=== PATIENT | female | born 1955 | race Caucasian/White ===

== ENCOUNTER 2024-06-02 12:23 | Emergency (ER) | payer MEDICARE, OTHER, SELFPAY ==
[2024-06-02] VITALS (7 sets, daily range): BP systolic 159–222; BP diastolic 53–81; PULSE 68–92; RESP 14–18; TEMP 36.2–36.7; O2SAT 98–99
--- NOTE | ~2024-06-02 | CT_ITS ---
EXAMINATION: CT abdomen pelvis wo con DATE: 06/02/2024 13:51 INDICATION: Left flank pain radiating to the left lower quadrant. TECHNIQUE: Computed tomography (CT) of the abdomen and pelvis was performed without intravenous contr ast. Automated exposure control and iterative reconstruction technique were employed. The dose-length product was 1553.99 mGy-cm. COMPARISON: None FINDINGS: Minimal dependent atelectasis in the bilateral lower lobes. Heart size normal. No pericardial or pleu ral effusion. Multiple small hepatic and splenic calcifications consistent with old granulomatous dis ease. Large rim calcified gallstone within the otherwise normal-appearing gallbladder. No intra or ex trahepatic ductal or ductal dilation. No gallbladder wall thickening or pericholecystic inflammatory change to suggest acute cholecystitis. Pancreas and bilateral adrenal glands are normal. Bilateral ne phrolithiasis. 4 mm at least partially obstructing distal left ureteral stone positioned [address] level of the ureterovesicular junction with mild left hydroureteronephrosis. Additional 2 mm nonob structing stone at a upper pole calyx of left kidney. Right kidney and ureter are normal with no urol ithiasis or hydronephrosis. Bladder is normal. The uterus is not identified and has likely been surgi jeri resected. There are few diverticula along the sigmoid colon without adjacent inflammatory stran ding to suggest diverticulitis. No free intraperitoneal gas or fluid. No pathologically enlarged abdo aileen or pelvic lymphadenopathy. Mild lumbar and moderate lower thoracic spondylosis. IMPRESSION: 1. Left nephrolithiasis with at least partially obstructing 4 mm distal left ureteral stone with mild left hydroureteronephrosis. 2. Cholelithiasis. Reviewed, dictated and finalized at location A. IMPRESSION: 1. Left nephrolithiasis with at least partially obstructing 4 mm distal left ur eteral stone with mild left hydroureteronephrosis. 2. Cholelithiasis.
--- NOTE | 2024-06-02 13:40 | ED.GENADULT ---
HPI - General Adult General Chief complaint: Unspecified Stated complaint: left flank pain Time Seen by Provider: 06/02/24 13:07 History of Present Illness HPI narrative: 69-year-old female with a history of hypertension, hyperlipidemia, CAD presenting with flank pain. States that for the last several weeks she has had intermittent left flank pain that radiates into her left lower quadrant. Associated with nausea. Denies dysuria or hematuria but states that her urine has had brown flecks in it. No fevers. No further complaints. Currently is pain free. Related Data Home Medications Medication Instructions Recorded Confirmed aspirin 81 mg tablet,delayed 81 mg PO DAILY 08/27/22 08/27/22 release calcium carbonate 500 mg PO DAILY 08/27/22 08/27/22 cetirizine 10 mg tablet 10 mg PO DAILY 08/27/22 08/27/22 cholecalciferol (vitamin D3) 125 125 mcg PO DAILY 08/27/22 08/27/22 mcg (5,000 unit) tablet fluticasone propionate 50 1 spray intranasal DAILY 08/27/22 08/27/22 mcg/actuation nasal spray,suspension furosemide 40 mg tablet 40 mg PO DAILY PRN Edema 08/27/22 08/27/22 multivitamin with minerals-folic 1 tablet PO DAILY 08/27/22 08/27/22 acid 0.4 mg tablet pantoprazole 40 mg tablet,delayed 40 mg PO DAILY 08/27/22 08/27/22 release simvastatin 40 mg tablet 40 mg PO DAILY 08/27/22 08/27/22 telmisartan 40 mg tablet 40 mg PO DAILY 08/27/22 08/27/22 venlafaxine 75 mg capsule,extended 75 mg PO DAILY 08/27/22 08/27/22 release 24 hr Allergies Allergy/AdvReac Type Severity Reaction Status Date / Time Sulfa (Sulfonamide Allergy Mild Palpitation Verified 06/02/24 12:26 Antibiotics) s Review of Systems Review of Systems: All systems reviewed & are unremarkable except as noted in HPI and below PMFSH Social History Social History Smoking status: Never smoker Additional smoking assessment comments: LIVED WITH SMOKING FOR 29 YEARS, 2017 Alcohol intake: never Substance use: never Substance use type: does not use Living arrangements: alone Spiritual care concerns: No Exam Narrative: GENERAL: Well-appearing, in no acute distress, very pleasant and cooperative HEAD: Normocephalic, atraumatic. EYES: PERRLA and EOMI. ENT: Mucous membranes moist. NECK: Supple. CHEST: No respiratory distress. HEART: Regular rate and rhythm ABDOMEN: Soft, nontender, nondistended; no CVA tenderness EXTREMITIES: Normal range of motion. SKIN: Warm, dry, no rash. NEURO: No focal deficits. Alert and oriented x3. PSYCH: Normal mood and affect. Course Vital Signs Vital signs: Vital Signs Temperature 97.2 F L 06/02/24 12:46 Pulse Rate 68 06/02/24 12:46 Respiratory Rate 16 06/02/24 12:46 Blood Pressure 222/81 H 06/02/24 12:46 Pulse Oximetry 98 06/02/24 12:46 Temperature 98.1 F 06/02/24 17:50 Pulse Rate 77 06/02/24 17:50 Respiratory Rate 17 06/02/24 17:50 Blood Pressure 159/53 H 06/02/24 17:17 Pulse Oximetry 99 06/02/24 17:50 Medical Decision Making MDM Narrative Medical decision making narrative: 69-year-old female presenting with left flank pain. Patient is hypertensive, otherwise vitals are within normal limits. Exam remarkable for the above. Blood work is unremarkable. Normal renal function. UA is not infected. CT abdomen pelvis shows a left-sided ureteral stone. Patient is safe for outpatient management. She has not had any recurrence of her symptoms today. She feels comfortable going home. Advised close follow-up with Urology. Appropriate return precautions given. Discharged in stable condition. Differential Diagnosis Differential Diagnosis: UTI, pyelonephritis, ureterolithiasis, flank pain Medical Records Medical records reviewed: Yes I reviewed the external patient's medical records. Vital Signs Vital Signs: Vital Signs Temperature 97.2 F L 06/02/24 12:46 Pulse Rate
[2024-06-02 14:06] LABS: Basophils Absolute Auto 0.1 K/mm3 (0.0-0.1); Basophils Percent Auto 0.6 % (0.2-1.2); Eosinophils Absolute Auto 0.3 K/mm3 (0-0.3); Eosinophils Percent Auto 3.1 % (0-4.4); Hematocrit 38.8 % (37.0-47.0); Hemoglobin 12.7 g/dL (12.0-15.0); Immature Granulocyte Absolute 0.04 K/mm3 (0.00-0.031); Immature Granulocyte Percent A 0.5 % (0-0.5); Lymphocytes Absolute Auto 1.61 K/mm3 (0.9-3.2); Lymphocytes Percent Auto 18.6 % (18.3-44.2); Mean Corpuscular HGB Conc 32.7 g/dl (32-36); Mean Corpuscular Hemoglobin 29.8 pg (26-34); Mean Corpuscular Volume 91.1 fl (80-100); Mean Platelet Volume 11.1 fl (7.4-10.4); Monocytes Absolute Auto 0.7 K/mm3 (0.1-0.6); Monocytes Percent Auto 7.6 % (2.6-8.5); Neutrophils Percent Auto 69.6 % (45.5-73.1); Platelet Count Result 185 k/mm3 (150-375); Red Blood Count 4.26 M/mm3 (4.2-5.4); Red Cell Distribution Width 13.1 % (11.5-14.5); White Blood Count 8.7 K/mm3 (4.5-10.0)
[2024-06-02 14:17] LABS: Alanine Aminotransferase 23 U/L (6-35); Albumin Level 3.9 g/dL (3.5-5.1); Alkaline Phosphatase 71 U/L (38-126); Anion Gap 8 mmol/L (4-12); Aspartate Amino Transferase 24 U/L (14-36); Bilirubin,Total 0.2 mg/dL (0.2-1.3); Blood Urea Nitrogen 16 mg/dL (7-17); Calcium 8.9 mg/dL (8.4-10.2); Carbon Dioxide 28 mmol/L (22-30); Chloride 103 mmol/L (98-107); Estimated CRCL calculation 86 ml/min; Estimated Glomerular Filt Rate > 60; Glucose 106 mg/dL (65-110); Lipase 96 U/L (23-300); Potassium 3.5 mmol/L (3.4-5.0); Sodium 139 mmol/L (137-145)
--- NOTE | 2024-06-02 15:34 | PC.NURSE ---
pt was provided oral hydration because they are unable to urinate to provide UA. pt was educated to use call light with any urge to provide urine sample.
[2024-06-02 17:08] LABS: Add Urine Microscopic? YES; Appearance Urine Clear (Clear); Bacteria Urine None Seen /hpf; Bilirubin Urine Negative (Negative); Blood Urine 2+ (Negative); Color Urine Yellow (Yellow); Glucose Urine UA Negative (Negative); Ketones Urine Negative (Negative); Leukocyte Esterase Ur Negative LEU/UL (Negative); Nitrate Urine Negative (Negative); Non Pathogenic Casts 0-2; Protein Urine Negative (Negative); RBC Urine 0-2 /hpf (0-2); Squamous Epithelial Cell Urine None Seen /hpf (Few); Urobilinogen Urine 0.2 mg/dL (<2.0); WBC Urine 0-5 /hpf (0-3)
== END 2024-06-02 17:55 | disposition home or self-care (01) ==
PROVIDERS: Emergency Provider Emergency Medicine
DX: N13.2 Hydronephrosis with renal and ureteral calculous obstruction (principal); I10 Essential (primary) hypertension; I25.10 Atherosclerotic heart disease of native coronary artery without angina pectoris; E78.5 Hyperlipidemia, unspecified; Z79.899 Other long term (current) drug therapy; Z79.82 Long term (current) use of aspirin; Z77.22 Contact with and (suspected) exposure to environmental tobacco smoke (acute) (chronic); K80.20 Calculus of gallbladder without cholecystitis without obstruction
CPT/HCPCS: 36415; 74176; 80053; 81001; 83690; 85025; 99284

== ENCOUNTER 2024-08-03 01:28 | Day surgery (SDC) | payer MEDICARE, OTHER, SELFPAY ==
[2024-07-29 09:01] VITALS: BMI 44.9
--- NOTE | 2024-07-29 13:00 | PC.NURSE ---
Did patient's PAT call. Told her she was scheduled for an EGD & Colonoscopy. She stated that she didn't know anything about the EGD and she only wanted to have the colonoscopy done.
[2024-08-03 10:38] VITALS: BP 169/81; PULSE 71; RESP 20; TEMP 36.2; O2SAT 98
[2024-08-03] MEDS: LACTATED RINGERS 1,000 ML 150 ML IV CONT (10:52)
--- NOTE | 2024-08-03 10:58 | P.PNAN_ITS ---
Anes - Initial Pre Proc Eval Procedure: Operation Date: 08/03/24 11:30 Proposed Procedures p Screening Colonoscopy - Dewayne Acuna MD Date/Time: 08/03/24 10:58 Surgeon: Dewayne Acuna MD Pre Op Diagnosis: Pesonal hx. of colon polyps, GERD Patient Data Age: 69 Gender: F Height: 1.65 m Weight: 120.9 kg Last Vital Signs Temp 36.2 C L 08/03/24 10:38 Pulse 71 08/03/24 10:38 Resp 20 08/03/24 10:38 BP 169/81 H 08/03/24 10:38 Pulse Ox 98 08/03/24 10:38 O2 Del Method Room Air 08/03/24 10:38 Allergies Allergy/AdvReac Type Severity Reaction Status Date / Time Sulfa (Sulfonamide Allergy Mild Palpitation Verified 08/03/24 10:36 Antibiotics) s Home Medications ?Medication ?Instructions ?Recorded ?Confirmed ?Type aspirin 81 mg tablet,delayed 81 mg PO DAILY 08/27/22 08/03/24 History release calcium carbonate 500 mg PO DAILY 08/27/22 08/03/24 History cetirizine 10 mg tablet 10 mg PO DAILY 08/27/22 08/03/24 History cholecalciferol (vitamin D3) 125 125 mcg PO DAILY 08/27/22 08/03/24 History mcg (5,000 unit) tablet fluticasone propionate 50 1 spray intranasal DAILY 08/27/22 08/03/24 History mcg/actuation nasal spray,suspension furosemide 40 mg tablet 40 mg PO DAILY PRN Edema 08/27/22 08/03/24 History multivitamin with minerals-folic 1 tablet PO DAILY 08/27/22 08/03/24 History acid 0.4 mg tablet pantoprazole 40 mg tablet,delayed 40 mg PO DAILY 08/27/22 08/03/24 History release simvastatin 40 mg tablet 40 mg PO DAILY 08/27/22 08/03/24 History telmisartan 40 mg tablet 40 mg PO DAILY 08/27/22 08/03/24 History venlafaxine 75 mg capsule,extended 75 mg PO DAILY 08/27/22 08/03/24 History release 24 hr hydrocodone 5 mg-acetaminophen 325 1 tablet PO Q8H PRN pain #7 tabs 06/02/24 07/29/24 Rx mg tablet ondansetron 4 mg disintegrating 4 mg PO Q8H PRN nausea and 06/02/24 07/29/24 Rx tablet vomiting #14 tabs meloxicam 15 mg tablet 15 mg PO DAILY 07/29/24 08/03/24 History Patient hx anesthesia problems: none Family hx anesthesia problems: none Results Review: All pre-operative results and documents have been reviewed as part of the pre- operative evaluation. [facility] Social History Social History Smoking status: Never smoker Additional smoking assessment comments: LIVED WITH SMOKING FOR 29 YEARS, 2017 Alcohol intake: never Substance use: never Substance use type: does not use Living arrangements: alone Spiritual care concerns: No Anes - Eval Final PreProcedure Day of Procedure 08/03/24 10:58 Patient weight: morbidly obese Heart: regular rate and rhythm Lungs: decreased breath sounds Airway: Mallampati scale class II Neurological: alert and oriented Last oral intake: >/= 8 hours ASA classification: III Emergent: no Anesthetic plan: proceed Anesthesia type and monitoring: general GIVS and standard monitoring Results Review: All pre-operative results and documents have been reviewed as part of the pre- operative evaluation. Informed Consent: The patient's anesthetic plan and its attendant risks and benefits were discussed with the patient/family/POA. Questions were solicited and answers provided to the satisfaction of the patient/family/POA.
--- NOTE | 2024-08-03 11:00 | PM.HPGS ---
History of Present Illness History of Present Illness Consent: Risks, benefits, and alternatives have been discussed and questions answered. Patient agrees to proceed with procedure. Chief complaint: Pesonal hx. of colon polyps, GERD Narrative: Krystin Yanez is a 69 year old female with colon polyp 7 years ago Review of Systems Review of Systems: All systems reviewed & are unremarkable except as noted in HPI and below PMFSH Past Medical History Medical History (Updated 08/03/24 @ 11:01 by Dewayne Acuna MD) Colon polyp Social History Social History Smoking status: Never smoker Additional smoking assessment comments: LIVED WITH SMOKING FOR 29 YEARS, 2018 Alcohol intake: never Substance use: never Substance use type: does not use Living arrangements: alone Spiritual care concerns: No Meds Home Medications and Allergies Home Medications ?Medication ?Instructions ?Recorded ?Confirmed ?Type aspirin 81 mg tablet,delayed 81 mg PO DAILY 08/27/22 08/03/24 History release calcium carbonate 500 mg PO DAILY 08/27/22 08/03/24 History cetirizine 10 mg tablet 10 mg PO DAILY 08/27/22 08/03/24 History cholecalciferol (vitamin D3) 125 125 mcg PO DAILY 08/27/22 08/03/24 History mcg (5,000 unit) tablet fluticasone propionate 50 1 spray intranasal DAILY 08/27/22 08/03/24 History mcg/actuation nasal spray,suspension furosemide 40 mg tablet 40 mg PO DAILY PRN Edema 08/27/22 08/03/24 History multivitamin with minerals-folic 1 tablet PO DAILY 08/27/22 08/03/24 History acid 0.4 mg tablet pantoprazole 40 mg tablet,delayed 40 mg PO DAILY 08/27/22 08/03/24 History release simvastatin 40 mg tablet 40 mg PO DAILY 08/27/22 08/03/24 History telmisartan 40 mg tablet 40 mg PO DAILY 08/27/22 08/03/24 History venlafaxine 75 mg capsule,extended 75 mg PO DAILY 08/27/22 08/03/24 History release 24 hr hydrocodone 5 mg-acetaminophen 325 1 tablet PO Q8H PRN pain #7 tabs 06/02/24 07/29/24 Rx mg tablet ondansetron 4 mg disintegrating 4 mg PO Q8H PRN nausea and 06/02/24 07/29/24 Rx tablet vomiting #14 tabs meloxicam 15 mg tablet 15 mg PO DAILY 07/29/24 08/03/24 History Allergies Allergy/AdvReac Type Severity Reaction Status Date / Time Sulfa (Sulfonamide Allergy Mild Palpitation Verified 08/03/24 10:36 Antibiotics) s Vital Signs Vital Signs - 24 hr 08/03/24 10:38 Temperature 97.1 F L Pulse Rate 71 Respiratory Rate 20 Blood Pressure 169/81 H Pulse Oximetry 98 Oxygen Delivery Room Air Exam Const: General: comfortable and no acute distress HENMT: Face/Nose/Sinus: Normal nares present Eyes: General: appearance normal, both eyes and all related structures Neck: Neck: no JVD Resp: Auscultation: clear to auscultation bilaterally Cardio: Rate: regular rate Rhythm: regular rhythm GI: Inspection: non-distended GI Palp: Yes Soft to palpation Skin: General skin exam: normal color Neuro: General: gait normal Speech: normal speech Extrem: General: normal to inspection Psych: Mental Status: mental status grossly normal Assessment and Plan Assessment and plan (1) Colon polyp: Code(s): K63.5 - Polyp of colon Status: Acute Assessment and Plan: colonoscopy
[2024-08-03 11:26] VITALS: BP 154/81; PULSE 68; RESP 29; O2SAT 95
[2024-08-03 11:36] VITALS: BP 156/95; PULSE 71; RESP 20; O2SAT 98
[2024-08-03 11:46] VITALS: BP 154/71; PULSE 65; RESP 19; O2SAT 99
== END 2024-08-03 11:55 | disposition home or self-care (01) ==
PROVIDERS: Visit Provider Internal Medicine Gastroenterology
PROC: 0DJD8ZZ Inspection of Lower Intestinal Tract, Via Natural or Artificial Opening Endoscopic (ICD-10-PCS; CPT 45378; principal; 2024-08-03 11:30)
DX: Z12.11 Encounter for screening for malignant neoplasm of colon (principal); D12.3 Benign neoplasm of transverse colon; K64.8 Other hemorrhoids; K21.9 Gastro-esophageal reflux disease without esophagitis; E66.01 Morbid (severe) obesity due to excess calories; Z68.41 Body mass index [BMI] 40.0-44.9, adult
CPT/HCPCS: 45385; 88305; J2003; J2704; J7120

== ENCOUNTER 2025-05-10 16:04 | Emergency (ER) | payer MEDICARE, OTHER, SELFPAY ==
--- NOTE | 2025-05-10 16:07 | ED.URI ---
HPI - URI/Sore Throat General Chief Complaint: Upper Respiratory Infection Stated Complaint: cold/flu Time Seen by Provider: 05/10/25 16:23 Source: patient and RN notes reviewed Mode of arrival: ambulatory Limitations: no limitations History of Present Illness HPI Narrative: 70-year-old female presents with concern for 5 day history of general malaise, headache, nasal drainage, fatigue, body aches, stomach ache, sinus pressure, chills and sweats. She reports 6 days ago she was exposed to COVID. She denies shortness of breath. MD elicited complaint: cough Related Data Home Medications ?Medication ?Instructions ?Recorded ?Confirmed ?Last Taken ?Type aspirin 81 mg tablet,delayed 81 mg PO DAILY 08/27/22 05/10/25 08/02/24 History release calcium carbonate 500 mg PO DAILY 08/27/22 05/10/25 08/02/24 History cetirizine 10 mg tablet 10 mg PO DAILY 08/27/22 05/10/25 08/02/24 History cholecalciferol (vitamin D3) 125 125 mcg PO DAILY 08/27/22 05/10/25 08/02/24 History mcg (5,000 unit) tablet fluticasone propionate 50 1 spray intranasal DAILY 08/27/22 05/10/25 08/02/24 History mcg/actuation nasal spray,suspension furosemide 40 mg tablet 40 mg PO DAILY PRN Edema 08/27/22 05/10/25 08/02/24 History multivitamin with minerals-folic 1 tablet PO DAILY 08/27/22 05/10/25 08/02/24 History acid 0.4 mg tablet pantoprazole 40 mg tablet,delayed 40 mg PO DAILY 08/27/22 05/10/25 08/02/24 History release simvastatin 40 mg tablet 40 mg PO DAILY 08/27/22 05/10/25 08/02/24 History telmisartan 40 mg tablet 40 mg PO DAILY 08/27/22 05/10/25 08/02/24 History venlafaxine 75 mg capsule,extended 75 mg PO DAILY 08/27/22 05/10/25 08/02/24 History release 24 hr meloxicam 15 mg tablet 15 mg PO DAILY 07/29/24 05/10/25 08/02/24 History Allergies Allergy/AdvReac Type Severity Reaction Status Date / Time Sulfa (Sulfonamide AdvReac Intermediate Palpitation Verified 05/10/25 16:07 Antibiotics) s Review of Systems Review of Systems: CONSTITUTIONAL: Reports malaise, chills, sweats EYES: Denies visual changes, redness, or discharge. ENT: Reports rhinorrhea, congestion, sinus pain denies otalgia and sore throat. CARDIOVASCULAR: Denies chest pain, palpitations, or edema. RESPIRATORY: Reports cough. Denies dyspnea. GASTROINTESTINAL: Denies abdominal pain, vomiting, diarrhea. Reports nausea SKIN: Denies rash or itching. MUSCULOSKELETAL: Reports myalgia. NEUROLOGIC: Reports headache. All systems reviewed & are unremarkable except as noted in HPI and below PMFSH Past Medical History Medical History (Updated 05/10/25 @ 16:26 by Fany Miller NP) Colon polyp Social History Social History Smoking status: Never smoker Additional smoking assessment comments: LIVED WITH SMOKING FOR 29 YEARS, 2017 Alcohol intake: never Substance use: never Substance use type: does not use Living arrangements: alone Spiritual care concerns: No Comments At time of signature, agree with nursing past medical, surgical, social and family history. There is no relevant family history pertinent to the presenting complaint Exam Narrative: GENERAL: Well-appearing, well-nourished, and in no acute distress. HEAD: Normocephalic EYES: PERRLA, conjunctivae clear ENT: Nares clear. Mucous membranes moist. TM pearly del castillo with sharp light reflex bilaterally; no tragal tenderness. Oropharynx not erythematous without lesions. Tonsils not enlarged and without exudate, no drooling, no hoarseness, no trismus, uvula midline. NECK: Supple. No lymphadenopathy CHEST: Clear to auscultation, breath sounds equal. No wheezing, rhonchi, rales, or stridor. No respiratory distress, speaks in full sentences. HEART: Regular rate and rhythm. Murmur heard. SKIN: Warm, dry, no rash. NEURO: Alert and oriented x3. PSYCH: Normal mood and affect Course Course Emergency Course: Patient is aware of diagnosis, understands and agrees to treatment plan. Anticipatory guidance given. Patient agrees to follow-up as directed and is aware of reasons to seek care at the emergency department. Portions of this record may have been created with voice recognition software Level of Care: Express Care Visit Vital Signs Vital signs: Reviewed. MDM - URI/Sore Throat MDM Narrative Medical decision making narrative: Differential diagnosis considered: Leblanc virus, strep pharyngitis, allergic rhinitis, upper respiratory tract infection, sinusitis, rhinosinusitis, nasopharyngitis. viral pharyngitis, otitis media, otitis externa, pneumonia, bronchitis, viral cough syndrome, viral syndrome, and influenza. Exam findings show no acute concerns or changes; patient is non-toxic appearing and is in no distress. Patient is appropriate for outpatient treatment and follow-up. Lab Data Attestation: I reviewed the patient's lab results. Critical Care Time Critical Care Time Critical Care Time: No Discharge Plan Discharge Clinical Impression: COVID Patient Disposition: Home Condition: Stable Instructions: How to Recover from COVID-19 at Home (ED) Additional Instructions: Your rapid COVID test is positive. COVID is a virus, antibiotics are not effective against viruses. Your body has to kill viruses. ? Stay home when you are sick, except to get medical care. ? Stay home until your symptoms are resolving and you haven't had a fever for 24 hours. ? If you are self isolating at home where others live, use a separate room and bathroom for sick household members (if possible). Clean any shared rooms as needed, to avoid transmitting the virus. ? Wash your hands often with soap and water for at least 20 seconds, especially after blowing your nose, coughing, or sneezing; going to the bathroom; and before eating or preparing food. ? If soap and water are not available, use an alcohol-based hand manager security with at least 60% alcohol. ? Have a supply of clean, disposable face masks. Everyone, no matter their COVID diagnosis, should wear face masks while in the home. - Over the counter medications such as Tylenol every 4 hours, ibuprofen every 6 hours (you can alternate these for maximum effect), Mucinex DM for cough, and psuedoephedrine (you must ask the pharmacist for this) can help relieve symptoms while your body fights off the virus. Watch for symptoms and learn when to seek emergency medical attention. If someone is showing any of these signs, seek emergency medical care immediately: ? Trouble breathing ? Persistent chest pain/pressure ? Confusion ? Inability to wake or stay awake ? Bluish lips or face Call 911 or call ahead to your local emergency room: Notify the welding machine operator gas metal arc that you are seeking care for someone who has or may have COVID Patient Language: Hebrew Prescriptions: New methylprednisolone [Medrol (Luis Angel)] 4 mg tablets,dose pack See Rx Instructions .ROUTE .COMPLEX Qty: 21 0RF Rx Instructions: orally per package directions dextromethorphan-guaifenesin [Mucinex DM] 60-1,200 mg tablet extended release 12 hr 1 tablet PO Q12H Qty: 12 0RF No Action furosemide 40 mg tablet 40 mg PO DAILY PRN (Reason: Edema) venlafaxine 75 mg capsule,extended release 24hr 75 mg PO DAILY cetirizine 10 mg tablet 10 mg PO DAILY aspirin 81 mg tablet,delayed release (DR/EC) 81 mg PO DAILY simvastatin 40 mg tablet 40 mg PO DAILY calcium carbonate [Calcium 500] 500 mg calcium (1,250 mg) Tablet 500 mg PO DAILY pantoprazole 40 mg tablet,delayed release (DR/EC) 40 mg PO DAILY telmisartan 40 mg tablet 40 mg PO DAILY fluticasone propionate 50 mcg/actuation spray,suspension 1 spray INTRANASAL DAILY multivit with min-folic acid [Adult One Daily Multivitamin] 0.4 mg Tablet 1 tablet PO DAILY cholecalciferol (vitamin D3) 125 mcg (5,000 unit) Tablet 125 mcg PO DAILY meloxicam 15 mg tablet 15 mg PO DAILY Follow-up/Referrals: UNKNOWN,DOCTOR [Non-Staff] Time of Disposition: 16:34
--- OUTSIDE RECORDS SUMMARY | 2025-05-10 16:07 | XMS_ITS | Clinical Summary ---
Author Organization [facility] Address [address] [place] [address] Care Team Providers Care Contract Agent Name Role Phone Nishi Odonnell MD Unavailable [phone] Tamie Brock MD Unavailable [phone] Sergio Titus MD Unavailable [phone] Selam Mayen MD Unavailable [phone] Clotilde Stout MD Unavailable [phone] Sergio Titus MD Primary Care Provider [phone] Allergies Active Allergy Reactions Criticality Noted Date Comments Sulfa (Sulfonamide Antibiotics) Other (See comments) High Reaction: Other Other reaction(s): Irregular Heart Rate Medications multivitamin tabletIndicati ons:Vitamin Deficiency Prevention daily. Active ascorbic acid (VITAMIN C) 1,000 mg tablet Take 1 tablet (1,000 mg total) by mouth daily Active calcium citrate/vitami n D3 (CALCET CREAMY BITES ORAL) Calcium Citrate + D Active vitamin E (AQUASOL E) 400 unit capsule 1 capsule (400 Units total) Active furosemide (LASIX) 40 mg tablet 2 Active ipratropium-al buteroL (DUO-NEB) 0.5-2.5 mg/3 mL nebulizer solution ipratropium 0.5 mg-albuterol 3 mg (2.5 mg base)/3 mL nebulization soln Active gabapentin (NEURONTIN) 300 mg capsule gabapentin 300 mg capsule Active aspirin 81 mg enteric coated tabletIndicati ons:Lipid disorder Take 1 tablet (81 mg total) by mouth daily 90 [address] (PROTONIX) 40 mg EC tabletIndicati ons:Treatment of Non-Bleeding Gastric Disorder Take 1 tablet (40 mg total) by mouth daily 90 tablet 2 5 026 Active benzonatate (TESSALON) 200 mg capsuleIndicat ions:Acute cough Take 1 capsule (200 mg total) by mouth 3 (three) times a day as needed for cough 30 capsule 5 Active predniSONE (DELTASONE) 10 mg tabletIndicati ons:Poison lenny dermatitis Take 4 tabs days 1&2, 3 tabs days 3 & 4, 2 tabs days 5 & 6, 1 tab days 7-10. 22 tablet 5 Active nystatin powderIndicati ons:Intertrigo Apply topically daily Use under skin folds. 120 g 11 5 Active cetirizine (ZyrTEC) 10 mg tabletIndicati ons:Other acute sinusitis, recurrence not specified Take 1 tablet (10 mg total) by mouth daily 90 tablet 2 5 026 Active venlafaxine XR (EFFEXOR-XR) 75 mg 24 hr capsule Take 1 tablet daily 90 capsule 5 Active cycloSPORINE (Restasis) 0.05 % ophthalmic emulsion Administer 1 drop into both eyes every 12 (twelve) hours 0.4 mL 2 5 Active telmisartan (MICARDIS) 40 mg tabletIndicati ons:Hypertensi on, essential Take 1 tablet (40 mg total) by mouth daily 90 tablet 5 026 Active simvastatin (Zocor) 40 mg tabletIndicati ons:Lipid disorder Take 1 tablet (40 mg total) by mouth nightly 90 tablet 5 026 Active fluticasone propionate (FLONASE) 50 mcg/actuation nasal sprayIndicatio ns:Other acute sinusitis, recurrence not specified,Recu rrent sinus infections Administer 2 sprays into each nostril daily 16 g 1 5 026 Active meloxicam (MOBIC) 15 mg tabletIndicati ons:Osteoarthr itis Take 1 tablet (15 mg total) by mouth daily Take 1 daily with food 30 tablet 5 025 Active meloxicam (MOBIC) 15 mg tabletIndicati ons:Osteoarthr itis Take 1 tablet (15 mg total) by mouth daily Take 1 daily with food 30 tablet 5 025 Discontin ued(Reord er) Active Problems Problem Noted Date Diagnosed Date Cellulitis of lip 06/12/2022 Screening for malignant neoplasm of colon 2021 Overview (12/20/2021): Added automatically from request for surgery [id number] Morbid (severe) obesity due to excess calories 0 11/04/2021 Body mass index (BMI) 45.0-49.9, adult 2 Edema 03/26/2020 Knee pain 07/05/2019 Amenorrhea 05/27/2019 Overview (06/17/2021): reassured menopausal with neg provera withdrawal 08/22 reassured menopausal with neg provera withdrawal 08/22 Primary osteoarthritis of right knee 05/27/2019 Enthesopathy of hip region 04/25/2019 Mixed stress and urge urinary incontinence 10/11 History of radiation therapy 10/11/2018 Anxiety 06/30/2018 Overview (06/17/2021): Stable on the Zoloft, would benefit from therapy. Consider also biofeedback. Referred to life skills. Arthritis 06/30/2018 Gastroesophageal reflux disease 06/30/2018 Hypercholesterolemia 06/30/2018 Multiple malignancies 06/30/2018 Depressive disorder 06/30/2018 Hypertension associated with diabetes 06/30/2018 Heartburn 10/27/2017 Anaclitic depression 05/27/2017 History of malignant neoplasm of endometrium Diabetes mellitus 04/27/2017 Benign hypertension 04/27/2017 Morbid obesity 04/27/2017 Malignant neoplasm of uterus 04/27/2017 Essential hypertension 02/11/2017 GERD (gastroesophageal reflux disease) 7 Cardiac murmur 08/26/2010 Essential (primary) hypertension 08/26/2010 Major depressive disorder, single episode 2010 Resolved Problems Problem Noted Date Diagnosed Date Resolved Date Melanoma of left upper arm 02/11/2019 0 02/25/2019 Assessment & Plan (02/25/2019 3:13 PM CDT): Two week s/p excision Healing well, no complications or signs of infection reported or noted on exam. Sutures removed without difficulty and wound care administered, instructions given both verbally and in written form. Pathology results discussed, no further treatment needed Will return p.r.n. Assessment & Plan (02/11/2019 2:54 PM CDT): Biopsy-proven, by Dr. Sutton Excision today by Dr. Wilson See Dr. Wilson procedure note Encounters Date Type Department Care Team Description 05/02/[address] [phone] Sergio Titus MD Med Refill [facility] 04/27/[address] [address] Sergio Titus MD med rf [facility] (Meloxicam ) 04/03/[address] [address] Sergio Titus MD med rf [facility] (Fluticasone nasal spray) 03/27/[address] [address] Sergio Titus MD med rf [facility] (Meloxicam ) 03/10/[address] [address] Sergio Titus MD Med Refill [facility] 02/15/[address] [place] [phone] Sergio Titus MD med rf [facility] (Meloxicam and cyclosporine eye drops) 02/14/2025 Orders Only [address] [phone] Sergio Titus MD 02/10/[address] [phone] Sergio Titus MD med rf [facility] (Restasis, Venlafaxine and Cetirizine) 02/09/2025 12:30 PM CDT Office Visit [facility] [address] [place] [address] [facility] [address] [place] [address] Ricky Leal MD PhD Intertrigo (Primary Dx); History of malignant melanoma; Milia of eyelid; Seborrheic keratosis from Last 3 Months Immunizations Immunization Administration Dates Next Due Influenza, Trivalent, High D ose, Split, Preservative Free, Intramuscular 07/11/2019 Influenza, Trivalent, IM (MDV) 07/01/2016 Influenza, Unspecified 05/13/2017 Pneumococcal Conjugate PCV 13 07/11/2019 Surgical History Surgery Date Site/Laterality Comments HYSTERECTOMY 04/17/2017 - 05/16/2017 SKIN CANCER EXCISION 08/17/2018 - 08/16/2019 BREAST BIOPSY 09/28/2023 Right Medical History Medical History Date Comments Gastroesophageal reflux disease GERD Adiposity Obesity Hypertension Heart murmur History of arthritis Skin cancer Family History Medical History Relation Name Comments Diabetes Father Hypertension Father sepsis Father urinary incontinence Father Dementia Mother Hypertension Mother Other Mother Ovarian cancer Mother Uterine cancer Mother Family histor y of malignant neoplasm of uterus - (Added by TW Conv) Colon cancer Other Family history of colon cancer - Relation: Uncle (Added by TW Conv) Relation Name Status Comments Father Mother Alive Other Social History Tobacco Use Types Packs/Day Years Used Date Smoking Tobacco: Never Smokeless Tobacco: Never Tobacco Cessation:Counseling Given: No Alcohol Use Standard Drinks/Week Comments No 0 (1 standard drink = 0.6 oz pur e alcohol) PHQ-2 Answer Date Recorded PHQ-2 Total Score (If total score is 3 or more points, staff should administer the PHQ-9) 0 12/29/2023 Comments No Sex and Gender Information Value Date Recorded Sex Assigned at Not on file Legal Sex Female 6:22 PM SKID STRAPPER Gender Identity Not on file Sexual Orientation Not on file Obstetrics History Para Term AB IAB SAB Ectopic Multiple Livin g Live Births 0 0 0 0 0 0 0 0 0 0 0 Last Filed Vital Signs Vital Sign Reading Time Taken Comments Blood Pressure 144/90 01/26/2025 3:32 PM CDT Pulse 68 01/26/2025 3:32 PM CDT Temperature 36.6 C (97.8 F) 01/11/2025 4:24 PM CDT Respiratory Rate 20 01/11/2025 4:24 PM CDT Oxygen Saturation 97% 01/26/2025 3:32 PM CDT Inhaled Oxygen Concentration - - Weight 128.2 kg (282 lb 11.2 oz) 01/11/2025 4:24 PM CDT Height 167.6 cm (5' 5.98) 01/11/2025 4:24 PM CD T Body Mass Index 45.65 01/11/2025 4:24 PM CDT Plan of Treatment Scheduled Procedures Name Priority Associated Diagnoses Date/Ti me COLONOSCOPY Colon polyp Health Maintenance Due Date Last Done Comments Albumin Creatinine Ratio, Urine 1955 Hepatitis C Screening 1955 Dilated Eye Exam 1955 Foot Exam 1955 DTaP/Tdap/Td Vaccine (1 - Tdap) 1964 Hepatitis B Screening 1971 Zoster Vaccine (1 of 2) 2003 Pneumococcal vaccine 65+ (2 of 2 - PPSV23, PCV20, or PCV21) 09/05/2019 07/11/2019 Depression Screening 12/28/2024 12/29/2023, 12/24/2022, 11/04/2021 Fall Risk Assessment 12/28/2024 12/29/2023, 12/24/2022, 11/04/2021 Osteoporosis Screening-Bone Density Scan 01/15/2025 01/15/2023 Influenza Vaccine (#1) 2025 9, 05/13/2017, 07/01/2016 Hemoglobin A1C 07/28/2025 01/26/2025, 12/15, 12/24/2022, Additional history exists Breast Cancer Screening-Mammogram 09/01/2025 09/01/2024, 08/20/2023, 01/31/2022, Additional history exists Lipid Panel 01/26/2026 01/26/2025, 12/15, 12/24/2022, Additional history exists Well Visit 65+ 01/26/2026 01/26/2025, 12/15, 12/24/2022, Additional history exists eGFR 01/26/2026 01/26/2025, 12/15, 12/24/2022, Additional history exists Colon Cancer Screening-Colonoscopy 05/07/2027 05/07/2017 Colon Cancer Screening-CT Colonography Discontinued 05/07/2017 Colon Cancer Screening-DNA Stool Discontinued 05/07/20 Colon Cancer Screening-FIT Discontinued 05/07/2017 Colon Cancer Screening-Sigmoidoscopy Discontinued 05/07/2017 Medical Devices Implanted Type Area Full Time Paramedic Device Identifier Shelf Expiration Date Model / Serial / Lot Bard Peripheral Vascular Ultraclip Bard 17ga 10cm 2 Trigger Permanent Ultrasound [id number] - [id number] Implanted:Qty: 1 on 09/28/2023 at [facility] Right: Breast Bard Peripheral Vascular [id number] / / Bard Peripheral Vascular Ultraclip Bard 17ga 10cm 2 Trigger Permanent Ultrasound [id number] - [id number] Implanted:Qty: 1 on 09/28/2023 at [facility] Right: Breast Bard Peripheral Vascular [id number] / / Procedures Procedure Name Priority Date/Time Associated Diagnosis Comments ECG 12-LEAD Routine 02/14/2025 12:19 PM CDT EGFR Routine 01/26/2025 3:51 PM CDT Hypertension associated with diabetes (HCC) HEMOGLOBIN A1C Routine 01/26/2025 3:51 PM CDT Hypertension associated with diabetes (HCC) LIPID PANEL Routine 01/26/2025 3:51 PM CDT Lipid disorder SCREENING MAMMOGRAM BILATERAL W DARRELL Schedule Routine, Read Routine (OP Routine) 09/01/2024 1:54 PM SKID STRAPPER Screening mammogram, encounter for DEXA AXIAL SKELETON BONE DENSITY 1 OR MORE SITES Schedule Routine, Read Routine (OP Routine) 01/15/2023 1:44 PM CDT Post-menopausal osteoporosis COLONOSCOPY REPORT 05/07/2017 from Last 3 Months or Most Recently Relevant to Health Maintenance Results * ECG 12 lead (02/14/2025 12:19 PM CDT) us Sergio Titus MD ECG ORDERABLES Final Result * eGFR (01/26/2025 3:51 PM CDT) eGFR 88 >=60 mL/min/1. 73 m2 Comment: Interpretive Data Reference Interval Normal >/= 90 mL/min/1.73m2 Mildly decreased* 60 - 89 mL/min/1.73m2 Mildly to moderately decreased 45 - 59 mL/min/1.73m2 Moderately to severely decreased 30 - 44 mL/min/1.73m2 Severely decreased 15 - 29 mL/min/1.73m2 Kidney Failure < 15 mL/min/1.73m2 *Relative to young adult level Estimated glomerular filtration rate is determined by the 2020 CKD-EPI equation recommended by the National Kidney Foundation (A Unifying Approach to GFR Estimation: Recommendations of the NKF-ASK Task Force on Reassessing the Inclusion of Race in Diagnosing Kidney Disease, JASN 2020). The CKD-EPI equation should not be used for patients with unstable renal function and has not been validated in children and those over 70. Current interpretive data was last reviewed 2021. Blood 01/26/2025 3:51 PM CDT 01/26/2025 5:50 PM CDT us Sergio Titus MD LAB BLOOD ORDERABLES Final R esult [facility] Department [place] [address] * (ABNORMAL) Hemoglobin A1c (01/26/2025 3:51 PM CDT) Hgb A1C 6.5(H) 4.0 - 5.6 % Estimated Average Glucose 140 mg/dL DEBRA SAVAGE Comment: The ADA recommends reporting an estimated Average Glucose (eAG) with all Hemoglobin A1c results using the equation derived from a study of 507 normal and diabetic adults. Minority populations were underrepresented and children were not included. (Diabetes Care 2020; 43(S1): S66-S76). The eAG is not equivalent to a fasting glucose. Blood 01/26/2025 3:51 PM CDT 01/26/2025 5:43 PM CDT Sergio Titus MD LAB BLOOD ORDERABLES Final R esult [facility] Department [place] [address] * (ABNORMAL) Lipid panel (01/26/2025 3:51 PM CDT) Cholesterol 183 30 - 199 mg/dL Comment: Interpretive Data Ages < or = 19 years Acceptable: <170 mg/dL Borderline high: 170-199 mg/dL High: >or= 200 mg/dL Ages > or = 20 years Desirable: <200 mg/dL Borderline high: 200-239 mg/dL High: >or= 240 mg/dL Literature References: 1. Expert Panel on Integrated Guidelines for Cardiovascular Health and Risk Reduction in Children and Adolescents. Pediatrics 2011;128:S213 2. NCEP Expert Panel. Circulation 2004;110:227 Current Interpretive Data was last revised on 2018. Triglycerides 215(H) <=149 mg/dL DEBRA SAVAGE Comment: Interpretive Data Ages < or = 9 years Acceptable: <75 mg/dL Borderline high: 75-99 mg/dL High: >or= 100 mg/dL Ages 10 to 20 years Acceptable: <90 mg/dL Borderline high: 90-129 mg/dL High: >or= 130 mg/dL Ages > or = 20 years Desirable: <150 mg/dL Borderline high: 150-199 mg/dL High: 200-499 mg/dL Very high: >or= 499 mg/dL Literature References: 1. Expert Panel on Integrated Guidelines for Cardiovascular Health and Risk Reduction in Children and Adolescents. Pediatrics 2011;128:S213 2. NCEP Expert Panel. Circulation 2004;110:227 Current Interpretive Data was last revised on 2018. HDL 56 >=40 mg/dL [facility] Comment: Interpretive Data Ages < or = 19 years Acceptable: >45 mg/dL Borderline low: 40-45 mg/dL Low: <40 mg/dL Ages > or = 20 years Desirable: >or= 60 mg/dL Low: <40 mg/dL Literature References: 1. Expert Panel on Integrated Guidelines for Cardiovascular Health and Risk Reduction in Children and Adolescents. Pediatrics 2011;128:S213 2. NCEP Expert Panel. Circulation 2004;110:227 Current Interpretive Data was last revised on 2018. LDL, calculated 91 <=129 mg/dL [facility] Comment: Interpretive Data Ages < or = 19 years Acceptable: <110 mg/dL Borderline high: 110-129 mg/dL High: >or= 130 mg/dL Ages > or = 20 years Optimal: <100 mg/dL Near optimal: 100-129 mg/dL Borderline high: 130-159 mg/dL High: >160 mg/dL Calculated using the Eriberto LDL-C estimating equation. This equation was implemented on 2024. Prior to this date LDL-C was estimated using the Friedewald equation. Literature References: 1. Expert Panel on Integrated Guidelines for Cardiovascular Health and Risk Reduction in Children and Adolescents. Pediatrics 2011;128:S213 2. NCEP Expert Panel. Circulation 2004;110:227 3. Eriberto Griggs al. JOLIE Cardiol. 2020 December 15;5(5):540-548. doi: 10.1001/jamacardio.2020.0013 Current Interpretive Data was last revised on 2024. Non-HDL Cholesterol 127 mg/dL [facility] Comment: Interpretive Data Ages < or = 19 years Acceptable: <120 mg/dL Borderline high: 120-144 mg/dL High: >145 mg/dL Ages > or = 20 years When triglycerides are >200 mg/dL, Non-HDL cholesterol is a secondary target of therapy with treatment goals that are 30 mg/dL greater than the LDL cholesterol target. Literature References: 1. Expert Panel on Integrated Guidelines for Cardiovascular Health and Risk Reduction in Children and Adolescents. Pediatrics 2011;128:S213 2. NCEP Expert Panel. Circulation 2004;110:227 Current Interpretive Data was last revised on 2018. Chol/HDL ratio 3 DEBRA HUSSEIN Blood 01/26/2025 3:51 PM CDT 01/26/2025 5:43 PM CDT us Sergio Titus MD LAB BLOOD ORDERABLES Final R esult [facility] Department [place] [address] * Screening Mammogram Bilateral W Darrell (09/01/2024 1:54 PM SKID STRAPPER) Anatomical Region Laterality Modality Breast Bilateral Mammography Narrative 09/02/2024 3:14 PM SKID STRAPPER Mammogram Technique: Bilateral Digital Breast Tomosynthesis, Bilateral C-view 2D Screening mammogram. Views obtained: bilateral craniocaudal and bilateral mediolateral oblique. Computer Aided Detection was performed. Mammogram Findings: The present examination has been compared to prior imaging studies performed at [facility] on 09/17/2023, and at [facility] on 01/31/2022 and 08/20/2023. The breasts are almost entirely fatty. There is no suspicious abnormality in either breast. Impression: There is no mammographic evidence of malignancy. Annual screening mammography is recommended. OVERALL FINAL ASSESSMENT: BI-RADS CATEGORY 1: Negative. Procedure Note Garo Treviño MD - 09/02/2024 Mammogram Technique: Bilateral Digital Breast Tomosynthesis, Bilateral C-view 2D Screening mammogram. Views obtained: bilateral craniocaudal and bilateral mediolateral oblique. Computer Aided Detection was performed. Mammogram Findings: The present examination has been compared to prior imaging studies performed at [facility] on 09/17/2023, and at [facility] on 01/31/2022 and 08/20/2023. The breasts are almost entirely fatty. There is no suspicious abnormality in either breast. Impression: There is no mammographic evidence of malignancy. Annual screening mammography is recommended. OVERALL FINAL ASSESSMENT: BI-RADS CATEGORY 1: Negative. us Self Screening Mammogram IMG MAMMO PROCEDURES Fi nal Result * Dexa Axial Skeleton Bone Density 1 or 2 Site (01/15/2023 1:44 PM CDT) Anatomical Region Laterality Modality Body N/A Digital Radiogra phy 01/15/2023 3:00 PM CDT Impressions 01/15/2023 3:02 PM CDT 1. The bone mineral density of the lumbar spine is normal. 2. The bone mineral density of the left femoral neck is mildly decreased. 3. The bone mineral density of the left total hip is normal. 4. Overall, the above findings are diagnostic of low bone mass (osteopenia) by WHO criteria. 5. Based on the FRAX fracture risk model, the 10-year probability for major osteoporotic fracture is 13% and that for hip fracture is 2.2%. The patient's recorded weight of 125.6 kg was outside FRAX(R) limits. The patient's weight was therefore adjusted to: Ifwkvy=665 kg. This 10-year fracture risk estimate was calculated using the risk factors noted in the history above, along with the femoral neck bone density. FRAX is intended to help guide treatment decisions in men over age 50 and postmenopausal women with low bone mass (osteopenia). The National Osteoporosis Foundation (NOF) recommends that FDA-approved medical therapies be considered in postmenopausal women and men age 50 years and older with osteoporosis and those with low bone mass whose 10-year fracture probability by FRAX is >= 20% for major osteoporotic fracture or >= 3% for hip fracture. However, all treatment decisions require clinical judgment and consideration of individual patient factors, including patient preferences, comorbidities, previous drug use, risk factors not captured in the FRAX model (e.g., frailty, falls, vitamin D deficiency, increased bone turnover, interval significant decline in bone density) and possible under- or overestimation of fracture risk by FRAX. General comments regarding interpretation of bone density measurements: A) In children, premenopausal woman and males under age 50 not at increased risk for fractures only Z-scores, not T-scores are used to indicate risk. A Z-score above -2.0 is defined as within the expected range for age and Z-score at or less than -2.0 is below the expected range for age. A Z-score below the expected range for age in a patient with recent fractures and/or chronic corticosteroid treatment is consistent with a diagnosis of osteoporosis. B) In post menopausal women and males over 50, comparison of the measured bone mineral density with the average value in young normal subjects (the T-score) has been found to be useful in assessing fracture risk. Fracture risk approximately doubles for each 1.0 standard deviation (SD) in individual's hip or spine bone mineral density is below the average value of young normal subjects. The World Health Organization (WHO) has defined T-scores of -1.0 to -2.5 as diagnostic of low bone mass (OSTEOPENIA), and T-scores of -2.5 or lower to be diagnostic of OSTEOPOROSIS, based on the site of lowest bone density. Note that there will be a change in reporting format and reference databases as patients move from the younger population (group A) to the older population (group B) The National Osteoporosis Foundation (www.nof.org) recommends adequate intake of calcium and vitamin D and regular weight-bearing exercise in all patients. They recommend pharmacologic treatment in postmenopausal women and men age 50 and older presenting with any of the followin) Osteoporosis, after appropriate evaluation to exclude secondary causes. 2) A hip or vertebral (clinical or radiographic) fracture, regardless of the bone density. 3) Low bone mass (Osteopenia) and one or more of: other prior fractures, secondary causes associated with high risk of fracture (such as glucocorticoid use or total immobilization), or computed high risk of fracture (10-yr probability of hip fracture >= 3% or a 10-yr probability of any major osteoporosis-related fracture >= 20% based on the [place].-adapted WHO algorithm), available at http://www.shef.ac.uk/FRAX). Dictated by: Sergio Liz MD The radiology attending physician has personally reviewed this study, and had reviewed and/or edited this written report and agrees with it. Electronically signed by: Maine García M.D. Narrative 01/15/2023 3:02 PM CDT BONE DENSITOMETRY OF THE SPINE AND HIP DATE OF STUDY: 01/15/2023 HISTORY: 67-year-old postmenopausal woman. She is being treated with calcium and vitamin D. Evaluate bone mineral density. Additional risk factors for fracture: parental fracture FINDINGS (SPINE): The bone mineral density of L1-L4 was assessed by dual-energy x-ray absorptiometry. The average bone mineral density within this region is 1.096 gm/sq-cm. This is 2.5 standard deviations above the mean of the average bone mineral density for age- and gender-matched subjects (the Z-score). It is 0.4 standard deviations above the mean peak bone mineral density in young adults (the T-score). FINDINGS (FEMORAL NECK): The bone mineral density of the left femoral neck was assessed by dual-energy x-ray absorptiometry. The average bone mineral density within the femoral neck region is 0.678 gm/sq-cm. This is 0.2 standard deviations above the mean of the average bone mineral density for age- and gender-matched subjects (the Z-score). It is 1.5 standard deviations below the mean peak bone mineral density in young adults (the T-score). FINDINGS (TOTAL HIP): The bone mineral density of the left hip was assessed by dual-energy x-ray absorptiometry. The average bone mineral density within the total hip region is 0.924 gm/sq-cm. This is 1.3 standard deviations above the mean of the average bone mineral density for age- and gender-matched subjects (the Z-score). It is 0.1 standard deviations below the mean peak bone mineral density in young adults (the T-score). SUMMARY OF CURRENT RESULTS: Region BMD T-score Z-score AP Spine (L1-L4) 1.096 0.4 2.5 Femoral Neck (Left) 0.678 -1.5 0.2 Total Hip (Left) 0.924 -0.1 1.3 Procedure Note Maine García MD - 01/15/2023 BONE DENSITOMETRY OF THE SPINE AND HIP DATE OF STUDY: 01/15/2023 HISTORY: 67-year-old postmenopausal woman. She is being treated with calcium and vitamin D. Evaluate bone mineral density. Additional risk factors for fracture: parental fracture FINDINGS (SPINE): The bone mineral density of L1-L4 was assessed by dual-energy x-ray absorptiometry. The average bone mineral density within this region is 1.096 gm/sq-cm. This is 2.5 standard deviations above the mean of the average bone mineral density for age- and gender-matched subjects (the Z-score). It is 0.4 standard deviations above the mean peak bone mineral density in young adults (the T-score). FINDINGS (FEMORAL NECK): The bone mineral density of the left femoral neck was assessed by dual-energy x-ray absorptiometry. The average bone mineral density within the femoral neck region is 0.678 gm/sq-cm. This is 0.2 standard deviations above the mean of the average bone mineral density for age- and gender-matched subjects (the Z-score). It is 1.5 standard deviations below the mean peak bone mineral density in young adults (the T-score). FINDINGS (TOTAL HIP): The bone mineral density of the left hip was assessed by dual-energy x-ray absorptiometry. The average bone mineral density within the total hip region is 0.924 gm/sq-cm. This is 1.3 standard deviations above the mean of the average bone mineral density for age- and gender-matched subjects (the Z-score). It is 0.1 standard deviations below the mean peak bone mineral density in young adults (the T-score). SUMMARY OF CURRENT RESULTS: Region BMD T-score Z-score AP Spine (L1-L4) 1.096 0.4 2.5 Femoral Neck (Left) 0.678 -1.5 0.2 Total Hip (Left) 0.924 -0.1 1.3 IMPRESSION: 1. The bone mineral density of the lumbar spine is normal. 2. The bone mineral density of the left femoral neck is mildly decreased. 3. The bone mineral density of the left total hip is normal. 4. Overall, the above findings are diagnostic of low bone mass (osteopenia) by WHO criteria. 5. Based on the FRAX fracture risk model, the 10-year probability for major osteoporotic fracture is 13% and that for hip fracture is 2.2%. The patient's recorded weight of 125.6 kg was outside FRAX(R) limits. The patient's weight was therefore adjusted to: Flydjb=111 kg. This 10-year fracture risk estimate was calculated using the risk factors noted in the history above, along with the femoral neck bone density. FRAX is intended to help guide treatment decisions in men over age 50 and postmenopausal women with low bone mass (osteopenia). The National Osteoporosis Foundation (NOF) recommends that FDA-approved medical therapies be considered in postmenopausal women and men age 50 years and older with osteoporosis and those with low bone mass whose 10-year fracture probability by FRAX is >= 20% for major osteoporotic fracture or >= 3% for hip fracture. However, all treatment decisions require clinical judgment and consideration of individual patient factors, including patient preferences, comorbidities, previous drug use, risk factors not captured in the FRAX model (e.g., frailty, falls, vitamin D deficiency, increased bone turnover, interval significant decline in bone density) and possible under- or overestimation of fracture risk by FRAX. General comments regarding interpretation of bone density measurements: A) In children, premenopausal woman and males under age 50 not at increased risk for fractures only Z-scores, not T-scores are used to indicate risk. A Z-score above -2.0 is defined as within the expected range for age and Z-score at or less than -2.0 is below the expected range for age. A Z-score below the expected range for age in a patient with recent fractures and/or chronic corticosteroid treatment is consistent with a diagnosis of osteoporosis. B) In post menopausal women and males over 50, comparison of the measured bone mineral density with the average value in young normal subjects (the T-score) has been found to be useful in assessing fracture risk. Fracture risk approximately doubles for each 1.0 standard deviation (SD) in individual's hip or spine bone mineral density is below the average value of young normal subjects. The World Health Organization (WHO) has defined T-scores of -1.0 to -2.5 as diagnostic of low bone mass (OSTEOPENIA), and T-scores of -2.5 or lower to be diagnostic of OSTEOPOROSIS, based on the site of lowest bone density. Note that there will be a change in reporting format and reference databases as patients move from the younger population (group A) to the older population (group B) The National Osteoporosis Foundation (www.nof.org) recommends adequate intake of calcium and vitamin D and regular weight-bearing exercise in all patients. They recommend pharmacologic treatment in postmenopausal women and men age 50 and older presenting with any of the followin) Osteoporosis, after appropriate evaluation to exclude secondary causes. 2) A hip or vertebral (clinical or radiographic) fracture, regardless of the bone density. 3) Low bone mass (Osteopenia) and one or more of: other prior fractures, secondary causes associated with high risk of fracture (such as glucocorticoid use or total immobilization), or computed high risk of fracture (10-yr probability of hip fracture >= 3% or a 10-yr probability of any major osteoporosis-related fracture >= 20% based on the [place].-adapted WHO algorithm), available at http://www.shef.ac.uk/FRAX). Dictated by: Sergio Liz MD The radiology attending physician has personally reviewed this study, and had reviewed and/or edited this written report and agrees with it. Electronically signed by: Maine García M.D. Sergio Titus MD IMG DXA PROCEDURES Final Res ult * COLONOSCOPY REPORT (05/07/2017) Anatomical Region Laterality Modality Other Provider Scanning GI PROCEDURE ORDERABLES Final Result from Last 3 Months or Most Recently Relevant to Health Maintenance Insurance MEDICARE [facility] EM[facility] [employer] [facility] HEALTH PLAN [facility] HEALTH [facility] HMO/PPO Address: [address] [address] [place] [address] MEDICARE [facility] [place] [address] MEDICARE [facility] HEALTH [facility] HMO/PPO Address: [address] [address] [place] [address] [place] [address] MEDICARE FOR LIFE [facility] HE[facility] HMO/PPO Address: [address] [address] [place] [address] Care Teams Contract Agent Relationship Specialty Start Date End Date Sergio Titus MD [address] [place] [address] [place] [address] PCP - General Cardiovascular Disease 11/03/22 Nishi Odonnell MD Radiation Oncologist Radiation Oncology 08/24/18 Tamie Brock MD [place] [address] [place] [place] [id number] [place] [address] Consulting Physician Gynecologic Oncology 12/20/21 Sergio Titus MD [facility] DR Ken SHEIKH [address] [place] [address] Consulting Physician Cardiovascular Disease 10/16/22 Selam Mayen MD [address] [place] [address] [place] [address] Referring Physician Family Medicine 10/16/22 Clotilde Stout MD [address] [place] [address] Referring Physician Obstetrics and Gynecology 10/16/22
--- OUTSIDE RECORDS SUMMARY | 2025-05-10 16:07 | XMS_ITS | Encounter Summary ---
Author Organization [facility] Address [address] [place] [address] [address] [place] [address] Phone Care Team Providers Care Pulmonary Fellow Name Role Phone Nishi Odonnell MD Unavailable Tamie Brock MD Unavailable Sergio Titus MD Unavailable [phone] Selam Mayen MD Unavailable [phone] Clotilde Stout MD Unavailable [phone] Sergio Titus MD Primary Care Provider [phone] Reason for Visit * Reason Onset Date Comments Med Refill SIGIFREDO 05/02/2025 Encounter Details Date Type Department Care Team (Late st Contact Info) Description 05/02/[address] [place] [address] Sergio Titus MD [address] [place] [address] [address] [place] [address] Med Refrachel MEI Social History Tobacco Use Types Packs/Day Years Used Date Smoking Tobacco: Never Smokeless Tobacco: Never Alcohol Use Standard Drinks/Week Comments No 0 (1 standard drink = 0.6 oz pur e alcohol) PHQ-2 Answer Date Recorded PHQ-2 Total Score (If total score is 3 or more points, staff should administer the PHQ-9) 0 12/29/2023 Comments No Sex and Gender Information Value Date Recorded Sex Assigned at Not on file Legal Sex Female 6:22 PM [employer] Gender Identity Not on file Sexual Orientation Not on file documented as of this encounter Miscellaneous Notes * Telephone Encounter - Evelina Joy RMA - 05/02/2025 12:04 PM CDT Returned call to [email or web address] to inform her [facility] has received Rx, she just needs to call and ask them to process it. If she would like Rx sent to different location, call back to let us know. * Telephone Encounter - Sariah Decker CMA - 05/02/2025 8:30 AM CDT Pt rqst RX refill for meloxicam Rvwd chart & advised med refill snt 04/27/25 However, pt stating pharmacy advised no prescription refill rcvd 04/27/25 Pt rqst RX refill to be resent Last appt 01/26/25 & Next appt TBA RX Pended Pharmacy [facility], [place]. Pt cb # [phone] documented in this encounter Plan of Treatment Scheduled Procedures Name Priority Associated Diagnoses Date/Ti me COLONOSCOPY Colon polyp documented as of this encounter Visit Diagnoses Diagnosis It band syndrome, left Acute pain of left knee Contusion of left knee, subsequent encounter documented in this encounter Care Teams Pulmonary Fellow Relationship Specialty Start Date End Date Sergio Titus MD [address] [place] [address] DR Ken SHEIKH [address] [place] [address] PCP - General Cardiovascular Disease 11/03/22 Nishi Odonnell MD Radiation Oncologist Radiation Oncology 08/24/18 Tamie Brock MD [address] [facility] [id number] [place] [address] Consulting Physician Gynecologic Oncology 12/20/21 Sergio Titus MD [address] [place] [address] DR Ken SHEIKH [address] [place] [address] Consulting Physician Cardiovascular Disease 10/16/22 Selam Mayen MD [address] [place] [address] [place] [address] Referring Physician Family Medicine 10/16/22 Clotilde Stout MD [address] [place] [address] Referring Physician Obstetrics and Gynecology 10/16/22 documented as of this encounter
--- OUTSIDE RECORDS SUMMARY | 2025-05-10 16:07 | XMS_ITS | Encounter Summary ---
Author Organization [facility] Address [facility] [place] [address] Care Team Providers Care Rubber Off Name Role Phone Edison Cantrell MD Unavailable Unavailable , Balta Cooper MD Primary Care Provider Unavailable Aric Corrales MD, Renea Primary Care Provider [phone] Encounter Details Date Type Department Care Team (Late st Contact Info) Description 02/12/2017 Abstract [facility] AT [address] [address] Grecia Adams [place] Social History Tobacco Use Types Packs/Day Years Used Date Smoking Tobacco: Never Smokeless Tobacco: Never Alcohol Use Standard Drinks/Week Comments No 0 (1 standard drink = 0.6 oz pur e alcohol) Comments Unknown Sex and Gender Information Value Date Recorded Sex Assigned at Not on file Legal Sex Female 2:04 PM CDT Gender Identity Not on file Sexual Orientation Not on file documented as of this encounter Plan of Treatment Not on file documented as of this encounter Procedures Procedure Name Priority Date/Time Associated Diagnosis Comments BASIC METABOLIC PANEL Routine 12/30/2016 LIPID PANEL Routine 12/30/2016 HEMOGLOBIN, GLYCOSYLATED Routine 12/30/2016 documented in this encounter Results * (ABNORMAL) BASIC METABOLIC PANEL (12/30/2016) SODIUM S/P/B 142 POTASSIUM S/P/B 4.1 CO2 23 CHLORIDE S/P/B 109 GLUCOSE 94 CALCIUM S/P/B 9.2 BUN 10 CREATININE S/P/B 0.79 0.5 - 1.0 EGFR AFR. AMER. 92(A) <=90 EGFR NON-AFR. AMER. 80 <=90 12/30/2016 us Doc [facility] Final Result * HEMOGLOBIN, GLYCOSYLATED (12/30/2016) HGB A1C 5.8 12/30/2016 us Doc [facility] Final Result * LIPID PANEL (12/30/2016) CHOLESTEROL 135 HDL 41 TRIGLYCERIDES 120 LDL (CALCULATED) 86 12/30/2016 us Doc [facility] Final Result documented in this encounter Visit Diagnoses Not on filedocumented in this encounter Care Teams Rubber Off Relationship Specialty Start Date End Date Balta Schmitz MD PCP - General 06/04/16 03/30/17 Renea Corbett MD [phone] (Work) PCP - General 03/31/17 Edison Cantrell MD [facility] [employer] Super[employer] CARDIOVASCULAR DISEASE 01/16/16 documented as of this encounter
--- OUTSIDE RECORDS SUMMARY | 2025-05-10 16:07 | XMS_ITS | Clinical Summary ---
Author Organization [facility] Address [address] [place] [address] Care Team Providers Care Staff Writer Name Role Phone Edison Cantrell MD Unavailable Unavailable Aric Corrales MD, Renea Primary Care Provider [phone] Allergies Active Allergy Reactions Criticality Noted Date Comments Sulfa Antibiotics Palpitations High 08/26/2010 Medications aspirin 81 MG tablet Take 1 tablet (81 mg total) by mouth every evening. Active calcium citrate-vitamin D 315 MG-250 UNIT (CALCIUM CITRATE +D) 315-250 MG-UNIT Tab tablet Take 1 tablet by mouth 2 (two) times daily as needed. Active esomeprazole (NEXIUM) 20 MG capsule Take 1 capsule (20 mg total) by mouth every morning before breakfast. Active fluticasone propionate 50 MCG/ACT nasal spray 1 spray by Nasal route daily. Active venlafaxine 24 hr (EFFEXOR XR) 75 MG 24 hr capsule Take 1 capsule (75 mg total) by mouth daily. Active telmisartan (MICARDIS) 40 MG tablet Take 1 tablet (40 mg total) by mouth daily. Active Multiple Vitamin (DAILY VITAMIN) Tab Take 1 tablet by mouth daily. Active progesterone 40 MG/G topical (natural) cream base Apply topically daily. Active meloxicam 15 MG tablet Take 1 tablet (15 mg total) by mouth daily. Active vitamin C 500 MG tablet Take 1 tablet (500 mg total) by mouth daily. Active cetirizine 10 MG tablet Take 1 tablet (10 mg total) by mouth daily. 7 Active Active Problems Problem Noted Date Diagnosed Date Essential hypertension 02/11/2017 GERD (gastroesophageal reflux disease) 7 Edema Family History Medical History Relation Comments Diabetes Father Dementia Mother Relation Status Comments Father Alive Mother Alive Social History Tobacco Use Types Packs/Day Years Used Date Smoking Tobacco: Never Smokeless Tobacco: Never Alcohol Use Standard Drinks/Week Comments No 0 (1 standard drink = 0.6 oz pur e alcohol) Comments Unknown Sex and Gender Information Value Date Recorded Sex Assigned at Not on file Legal Sex Female 2:04 PM CDT Gender Identity Not on file Sexual Orientation Not on file Last Filed Vital Signs Vital Sign Reading Time Taken Comments Blood Pressure 140/92 02/11/2017 12:50 PM CDT Pulse 69 02/11/2017 12:50 PM CDT Temperature - - Respiratory Rate - - Oxygen Saturation 96% 02/11/2017 12:50 PM CDT Inhaled Oxygen Concentration - - Weight 122 kg (269 lb) 02/11/2017 12:50 PM CDT Height 165.1 cm (5' 5) 02/11/2017 12:50 PM CDT Body Mass Index 44.76 02/11/2017 12:50 PM CDT Plan of Treatment Health Maintenance Due Date Last Done Comments Colorectal Cancer Screening Colonoscopy (10 Years) 1953 Hepatitis C 1971 DTaP, Tdap and Td Vaccines ( 1 - Tdap) 1972 Mammogram Screening 1993 Pneumococcal Vaccine: 50+ Ye ars (1 of 1 - PCV) 2003 Zoster Vaccines (1 of 2) 2003 Dexa Scan (General) 2018 COVID-19 Vaccine ( - 2023-2 5 season) 2025 RSV Immunization or 60+ Years (1 - 1-dose 75+ series) 2028 Meningococcal B Vaccine Aged Out No l onger eligible based on patient's age to complete this topic Meningococcal Vaccine Aged Out No saeid gerardo eligible based on patient's age to complete this topic RSV Immunizations Under 20 Months Aged Out No longer eligible based on patient's age to complete this topic Insurance [employer] [address] [place], [place] [id number] Care Teams Staff Writer Relationship Specialty Start Date End Date Renea Corbett MD [phone] (Work) PCP - General 03/31/17 Edison Cantrell MD [employer]im[employer] CARDIOVASCULAR DISEASE 01/16/16
[2025-05-10 16:18] VITALS: BP 120/68; PULSE 64; RESP 18; TEMP 36.6; O2SAT 98
[2025-05-10 16:28] LABS: EDCOVIDSCREEN Positive (Negative)
[2025-05-10 16:34] LABS: EDINFLUASCREEN Negative (Negative); EDINFLUBSCREEN Negative (Negative)
== END 2025-05-10 16:37 | disposition home or self-care (01) ==
PROVIDERS: Emergency Provider Nurse Practitioner
DX: U07.1 COVID-19 (principal); Z79.82 Long term (current) use of aspirin
CPT/HCPCS: 87426; 87804; 99213; G0463

== ENCOUNTER 2025-08-09 13:16 | Emergency (ER) | payer MEDICARE, OTHER, SELFPAY ==
--- NOTE | ~2025-08-09 | XR_ITS ---
EXAMINATION: XR chest 2V 08/09/2025 16:15 INDICATION: Cough and shortness of breath PROCEDURE: 2 view chest COMPARISON: No prior studies for comparison. FINDINGS: The lungs are clear. The cardiomediastinal silhouette is within normal limits. There are no pleural effusions. There is no pneumothorax suspected. Calcified granuloma right apex. IMPRESSION: 1: NO ACUTE CARDIOPULMONARY DISEASE. Reviewed, dictated and finalized at location O. LAMINATOR
[2025-08-09 14:12] VITALS: BP 166/76; PULSE 85; RESP 14; TEMP 38; O2SAT 100
--- NOTE | 2025-08-09 15:54 | ED.URI ---
HPI - URI/Sore Throat General Chief Complaint: Upper Respiratory Infection <JESSICA Cohen Last Filed: 08/09/25 16:02> Stated Complaint: covid, sinus infection, who knows <JESSICA Cohen Last Filed: 08/09/25 16:02> Time Seen by Provider: 08/09/25 15:55 <JESSICA Cohen Last Filed: 08/09/25 16:02> Focused HPI: Patient is a 70 y/o female who presents to the ED with c/o URI sx's. Patient reports she has been sick since Thursday with URI sx's. Reports having sore throat, cough, chest/nasal congestion, fevers, weakness, myalgias, headaches. Reports mild SOB. States cough has been productive of thick globs of yellow/brown sputum. Has not been taking anything for her sx's. Denies known sick contacts. Denies CP. GENERAL: Mildly ill-appearing, morbidly obese with BMI of 44.5, and in no acute distress. HEAD: Normocephalic, atraumatic. CHEST: Clear to auscultation. ?No respiratory distress. Frequent coughing. No significant focal lung sounds. HEART: Regular rate and rhythm.? NEURO: ?Alert and oriented x3. Patient screened in triage and initial orders placed.? ?Additional care and disposition to be based upon?diagnostic testing and treatment. <JESSICA Cohen Last Filed: 08/09/25 16:02> Source: patient <JESSICA Cohen Last Filed: 08/09/25 16:02> Mode of arrival: ambulatory <JESSICA Cohen Last Filed: 08/09/25 16:02> Limitations: no limitations <JESSICA Cohen Last Filed: 08/09/25 16:02> History of Present Illness HPI Narrative: patient 68-year-old female who presents emergency department chief complaint of upper respiratory symptoms the patient reports he has been sick since Thursday reports that she has had a sore throat cough and fevers at home patient reports myalgias reports that she does feel little short of breath with it at times patient reports no sick contacts reports that she gets a sinus infection about once year <Eliseo Wallace MD - Last Filed: 08/09/25 20:48> Related Data Home Medications: Home Medications ?Medication ?Instructions ?Recorded ?Confirmed ?Last Taken ?Type aspirin 81 mg tablet,delayed 81 mg PO DAILY 08/27/22 05/10/25 08/02/24 History release calcium carbonate 500 mg PO DAILY 08/27/22 05/10/25 08/02/24 History cetirizine 10 mg tablet 10 mg PO DAILY 08/27/22 05/10/25 08/02/24 History cholecalciferol (vitamin D3) 125 125 mcg PO DAILY 08/27/22 05/10/25 08/02/24 History mcg (5,000 unit) tablet fluticasone propionate 50 1 spray intranasal DAILY 08/27/22 05/10/25 08/02/24 History mcg/actuation nasal spray,suspension furosemide 40 mg tablet 40 mg PO DAILY PRN Edema 08/27/22 05/10/25 08/02/24 History multivitamin with minerals-folic 1 tablet PO DAILY 08/27/22 05/10/25 08/02/24 History acid 0.4 mg tablet pantoprazole 40 mg tablet,delayed 40 mg PO DAILY 08/27/22 05/10/25 08/02/24 History release simvastatin 40 mg tablet 40 mg PO DAILY 08/27/22 05/10/25 08/02/24 History telmisartan 40 mg tablet 40 mg PO DAILY 08/27/22 05/10/25 08/02/24 History venlafaxine 75 mg capsule,extended 75 mg PO DAILY 08/27/22 05/10/25 08/02/24 History release 24 hr meloxicam 15 mg tablet 15 mg PO DAILY 07/29/24 05/10/25 08/02/24 History <Delia Gordon PA-C - Last Filed: 08/09/25 16:02> Allergies/Adverse Reactions: Allergies Allergy/AdvReac Type Severity Reaction Status Date / Time Sulfa (Sulfonamide AdvReac Intermediate Palpitation Verified 08/09/25 14:16 Antibiotics) s <Delia Gordon PA-C - Last Filed: 08/09/25 16:02> Review of Systems Review of Systems: A 10 system review of systems was completed on the patient and is negative except for what is stated in the HPI. Nursing and ancillary documentation was reviewed. <Eliseo Wallace MD - Last Filed: 08/09/25 20:48> PMFSH Past Medical History Medical History: Medical History Colon polyp <Delia Gordon PA-C - Last Filed: 08/09/25 16:02> Social History Social History: Social History Smoking status: Never smoker Additional smoking assessment comments: LIVED WITH SMOKING FOR 29 YEARS, 2017 Alcohol intake: never Substance use: never Substance use type: does not use Living arrangements: alone Spiritual care concerns: No <Delia Gordon PA-C - Last Filed: 08/09/25 16:02> Exam Narrative: GENERAL: Well-appearing, well-nourished, and in no acute distress. HEAD: Normocephalic, atraumatic. EYES: PERRLA and EOMI. ENT: Nares clear, no rhinorrhea or epistaxis. Mucous membranes moist. NECK: Supple. CHEST: Clear to auscultation. No respiratory distress. HEART: Regular rate and rhythm. No murmur heard. Normal peripheral pulses. ABDOMEN: Soft, nontender, nondistended, normal active bowel sounds. EXTREMITIES: Normal range of motion. No edema. SKIN: Warm, dry, no rash. NEURO: No focal deficits. Alert and oriented x3. PSYCH: Normal mood and affect. <Eliseo Wallace MD - Last Filed: 08/09/25 20:48> Course Vital Signs Vital signs: Vital Signs Temperature 38.0 C H 08/09/25 14:12 Pulse Rate 85 08/09/25 14:12 Respiratory Rate 14 08/09/25 14:12 Blood Pressure 166/76 H 08/09/25 14:12 Pulse Oximetry 100 08/09/25 14:12 Oxygen Delivery Room Air 08/09/25 14:12 Temperature 37.4 C 08/09/25 18:45 Pulse Rate 90 08/09/25 18:45 Respiratory Rate 18 08/09/25 18:45 Blood Pressure 183/68 H 08/09/25 18:45 Pulse Oximetry 94 08/09/25 19:08 Oxygen Delivery Room Air 08/09/25 19:08 <Delia Gordon PA-C - Last Filed: 08/09/25 16:02> Vital Signs Temperature 38.0 C H 08/09/25 14:12 Pulse Rate 85 08/09/25 14:12 Respiratory Rate 14 08/09/25 14:12 Blood Pressure 166/76 H 08/09/25 14:12 Pulse Oximetry 100 08/09/25 14:12 Oxygen Delivery Room Air 08/09/25 14:12 Temperature 37.4 C 08/09/25 18:45 Pulse Rate 90 08/09/25 18:45 Respiratory Rate 18 08/09/25 18:45 Blood Pressure 183/68 H 08/09/25 18:45 Pulse Oximetry 94 08/09/25 19:08 Oxygen Delivery Room Air 08/09/25 19:08 <Eliseo Wallace MD - Last Filed: 08/09/25 20:48> MDM MDM Narrative Medical decision making narrative: MSE by MARIA ELENA in triage <Delia Gordon PA-C - Last Filed: 08/09/25 16:02> Differential Diagnosis Differential Diagnosis: differential diagnosis includes pneumonia, viral bronchitis, COVID, flu, RSV, otitis, chest x-ray showed no focal infiltrate patient was negative for COVID flu RSV she was negative for strep lactate was 1.2 CBC showed a white count of 12.1 electrolytes showed no acute abnormality the patient shows no signs of pneumonia this time is most likely a viral related illness symptoms only been got ongoing since this weekend patient was started on steroids given a prescription for Tessalon and a prescription for an inhaler patient should follow-up with her primary care provider for symptoms continue she may need re-evaluation <Eliseo Wallace MD - Last Filed: 08/09/25 20:48> Lab Data Result diagrams: 08/09/25 19:16 08/09/25 19:16 <Delia Gordon PA-C - Last Filed: 08/09/25 16:02> Labs: Lab Results 08/09/25 08/09/25 Range/Units 18:43 19:16 WBC 12.1 H (4.5-10.0) K/mm3 RBC 4.54 (4.2-5.4) M/mm3 Hgb 13.7 (12.0-15.0) g/dL Hct 40.8 (37.0-47.0) % MCV 89.9 (80-100) fl MCH 30.2 (26-34) pg MCHC 33.6 (32-36) g/dl RDW 13.5 (11.5-14.5) % Plt Count 195 (150-375) k/mm3 MPV 11.2 H (7.4-10.4) fl Immature Gran % (Auto) 0.5 (0-0.5) % Neut % (Auto) 76.9 H (45.5-73.1) % Lymph % (Auto) 12.4 L (18.3-44.2) % Tripp % (Auto) 7.0 (2.6-8.5) % Eos % (Auto) 2.7 (0-4.4) % Baso % (Auto) 0.5 (0.2-1.2) % Lymph # (Auto) 1.50 (0.9-3.2) K/mm3 Tripp # (Auto) 0.8 H (0.1-0.6) K/mm3 Eos # (Auto) 0.3 (0-0.3) K/mm3 Baso # (Auto) 0.1 (0.0-0.1) K/mm3 Abs Immat Gran (auto) 0.06 H (0.00-0.031) K/mm3 Absolute Neuts (auto) 9.3 H (1.3-6.7) K/mm3 Absolute Nucleated RBC 0.000 (0.0-0.012) K/mm3 Nucleated RBC % 0.0 (0.0-0.2) % Sodium 137 (137-145) mmol/L Potassium 3.7 (3.4-5.0) mmol/L Chloride 103 (98-107) mmol/L Carbon Dioxide 24 (22-30) mmol/L Anion Gap 10 (4-12) mmol/L BUN 14 (7-17) mg/dL Creatinine 0.81 (0.7-1.0) mg/dL Estim Creat Clear Calc 74 ml/min Estimated GFR > 60 (59 - ) Glucose 134 H (65-110) mg/dL Lactic Acid 1.2 (0.7-2.0) mmol/L Calcium 8.9 (8.4-10.2) mg/dL Total Bilirubin 0.7 (0.2-1.3) mg/dL AST 25 (14-36) U/L ALT 26 (6-35) U/L Alkaline Phosphatase 87 (38-126) U/L Total Protein 7.5 (6.3-8.2) g/dL Albumin 4.0 (3.5-5.1) g/dL Influenza A (RT-PCR) Negative (Negative) Influenza B (RT-PCR) Negative (Negative) RSV (RT-PCR) Negative (Negative) SARS-CoV-2 RNA (RT-PCR) Negative (Negative) Group A Strep (PCR) Not detected (Negative) <Delia Gordon PA-C - Last Filed: 08/09/25 16:02> Lab Results 08/09/25 08/09/25 Range/Units 18:43 19:16 WBC 12.1 H (4.5-10.0) K/mm3 RBC 4.54 (4.2-5.4) M/mm3 Hgb 13.7 (12.0-15.0) g/dL Hct 40.8 (37.0-47.0) % MCV 89.9 (80-100) fl MCH 30.2 (26-34) pg MCHC 33.6 (32-36) g/dl RDW 13.5 (11.5-14.5) % Plt Count 195 (150-375) k/mm3 MPV 11.2 H (7.4-10.4) fl Immature Gran % (Auto) 0.5 (0-0.5) % Neut % (Auto) 76.9 H (45.5-73.1) % Lymph % (Auto) 12.4 L (18.3-44.2) % Tripp % (Auto) 7.0 (2.6-8.5) % Eos % (Auto) 2.7 (0-4.4) % Baso % (Auto) 0.5 (0.2-1.2) % Lymph # (Auto) 1.50 (0.9-3.2) K/mm3 Tripp # (Auto) 0.8 H (0.1-0.6) K/mm3 Eos # (Auto) 0.3 (0-0.3) K/mm3 Baso # (Auto) 0.1 (0.0-0.1) K/mm3 Abs Immat Gran (auto) 0.06 H (0.00-0.031) K/mm3 Absolute Neuts (auto) 9.3 H (1.3-6.7) K/mm3 Absolute Nucleated RBC 0.000 (0.0-0.012) K/mm3 Nucleated RBC % 0.0 (0.0-0.2) % Sodium 137 (137-145) mmol/L Potassium 3.7 (3.4-5.0) mmol/L Chloride 103 (98-107) mmol/L Carbon Dioxide 24 (22-30) mmol/L Anion Gap 10 (4-12) mmol/L BUN 14 (7-17) mg/dL Creatinine 0.81 (0.7-1.0) mg/dL Estim Creat Clear Calc 74 ml/min Estimated GFR > 60 (59 - ) Glucose 134 H (65-110) mg/dL Lactic Acid 1.2 (0.7-2.0) mmol/L Calcium 8.9 (8.4-10.2) mg/dL Total Bilirubin 0.7 (0.2-1.3) mg/dL AST 25 (14-36) U/L ALT 26 (6-35) U/L Alkaline Phosphatase 87 (38-126) U/L Total Protein 7.5 (6.3-8.2) g/dL Albumin 4.0 (3.5-5.1) g/dL Influenza A (RT-PCR) Negative (Negative) Influenza B (RT-PCR) Negative (Negative) RSV (RT-PCR) Negative (Negative) SARS-CoV-2 RNA (RT-PCR) Negative (Negative) Group A Strep (PCR) Not detected (Negative) <lEiseo Wallace MD - Last Filed: 08/09/25 20:48> Imaging Data Radiologist's impression: ITS Impressions Chest X-Ray 08/09/25 16:26 IMPRESSION: 1: NO ACUTE CARDIOPULMONARY DISEASE. <Delia Gordon PA-C - Last Filed: 08/09/25 16:02> ITS Impressions Chest X-Ray 08/09/25 16:26 IMPRESSION: 1: NO ACUTE CARDIOPULMONARY DISEASE. <Eliseo Wallace MD - Last Filed: 08/09/25 20:48> Discharge Plan Discharge Clinical Impression: Upper respiratory infection, Acute viral bronchitis <Delia Gordon PA-C - Last Filed: 08/09/25 16:02> Patient Disposition: Home <JESSICA Cohen Last Filed: 08/09/25 16:02> Condition: Stable <JESSICA Cohen Last Filed: 08/09/25 16:02> Instructions: Antibiotic Form, Acute Bronchitis (ED) <JESSICA Cohen Last Filed: 08/09/25 16:02> Patient Language: Cymraes <Delia Gordon PA-C - Last Filed: 08/09/25 16:02> Prescriptions: New benzonatate 200 mg capsule 200 mg PO TID PRN (Reason: cough) Qty: 21 0RF prednisone 20 mg tablet 40 mg PO DAILY 5 Days Qty: 10 0RF albuterol sulfate 90 mcg/actuation HFA aerosol inhaler 2 puff inhalation QID PRN (Reason: shortness of breath or wheezing) Qty: 8.5 0RF No Action methylprednisolone [Medrol (Luis Angel)] 4 mg tablets,dose pack See Rx Instructions .ROUTE .COMPLEX Qty: 21 0RF Rx Instructions: orally per package directions dextromethorphan-guaifenesin [Mucinex DM] 60-1,200 mg tablet extended release 12 hr 1 tablet PO Q12H Qty: 12 0RF furosemide 40 mg tablet 40 mg PO DAILY PRN (Reason: Edema) venlafaxine 75 mg capsule,extended release 24hr 75 mg PO DAILY cetirizine 10 mg tablet 10 mg PO DAILY aspirin 81 mg tablet,delayed release (DR/EC) 81 mg PO DAILY simvastatin 40 mg tablet 40 mg PO DAILY calcium carbonate [Calcium 500] 500 mg calcium (1,250 mg) Tablet 500 mg PO DAILY pantoprazole 40 mg tablet,delayed release (DR/EC) 40 mg PO DAILY telmisartan 40 mg tablet 40 mg PO DAILY fluticasone propionate 50 mcg/actuation spray,suspension 1 spray INTRANASAL DAILY multivit with min-folic acid [Adult One Daily Multivitamin] 0.4 mg Tablet 1 tablet PO DAILY cholecalciferol (vitamin D3) 125 mcg (5,000 unit) Tablet 125 mcg PO DAILY meloxicam 15 mg tablet 15 mg PO DAILY <Delia Gordon PA-C - Last Filed: 08/09/25 16:02> Follow-up/Referrals: PHYSICIAN NOT ON STAFF,NONSTAFF [Non-Staff] <Delia Gordon PA-C - Last Filed: 08/09/25 16:02> Time of Disposition: 20:46 <eDlia Gordon PA-C - Last Filed: 08/09/25 16:02> 20:46 <Eliseo Wallace MD - Last Filed: 08/09/25 20:48>
[2025-08-09 18:45] VITALS: BP 183/68; PULSE 90; RESP 18; TEMP 37.4; O2SAT 95
[2025-08-09 19:08] VITALS: O2SAT 94
[2025-08-09] MEDS: ACETAMINOPHEN 500 MG TABLET 1000 MG PO (19:10)
--- OUTSIDE RECORDS SUMMARY | 2025-08-09 19:13 | XMS_ITS | Continuity of Care Document ---
Author Name [facility] Organization [facility] Care Team Providers Care Biomechanical Engineer Name Role Phone [facility] Unavailable Unavailable Problems Combined list of problems from Department of Defense and Veterans Affairs facilities. It does not include entries that were removed or entered in error. Problem Status Onset Date Problem Type Date of Resolution Comments Source Disappearance and of family member Active 07/25/20 16 Condition DoD Need For Vaccination Against Td Inactive Condition DoD Postmenopausal bleeding Active Condition DoD feelings of urinary urgency sudden Active Condition DoD contact dermatitis Inactive Condition Do D esophageal reflux Active Condition DoD Outpatient Physician Consultation Active Condition DoD iliotibial band friction syndrome Active Condition DoD visit for: screening exam malignant neoplasm breast Inactive Condition DoD sciatica Active Condition DoD osteoarthritis Active Condition DoD plantar fasciitis left Active Condition DoD Aftercare Following Surgery Active Condition DoD Dressing Change Inactive Condition DoD seborrheic keratosis Inactive Condition DoD skin neoplasm uncertain behavior Active Condition DoD shoulder strain rhomboid muscles Inactive Condition DoD Nodules - Subcutaneous Active Condition DoD generalized anxiety disorder Active Condition DoD complex regional pain syndrome type II lower limb Active Condition DoD Mammogram Screening Inactive Condition D oD limb pain Active Condition DoD visit for: laboratory Inactive Condition DoD rhinitis purulent Active Condition DoD Imaging Studies Inactive Condition DoD menopause Active Condition DoD hemorrhoids external Active Condition D oD X-Ray Inactive Condition DoD impaired fasting glucose Active Condition DoD ankle joint pain Active Condition DoD visit for: refer patient without exam or treatment Inactive Condition DoD headache syndromes Active Condition DoD hyperglycemia Active Condition DoD postmenopausal bleeding Inactive Condition DoD skin and subcutaneous tissue disorder intertrigo Inactive Condition DoD Cervical Pap Smear Unsatisfactory Active Condition DoD urge and stress incontinence Active Condition DoD routine pelvic exam Inactive Condition D oD actinic keratosis Inactive Condition DoD lump in / on the skin Active Condition DoD nausea Inactive Condition DoD sinusitis acute Inactive Condition DoD visit for: screening exam cardiovascular disorders Active Condition DoD routine examination Active Condition Do D Preventive Medicine Established Patient Checkup Adult 40-64 Years Inactive Condition DoD sinusitis Active Condition DoD upper respiratory infection Active Condition DoD depression Active Condition DoD epidermal inclusion cyst Inactive Condition expressed DoD anxiety disorder NOS Active Condition D oD sebaceous cyst Inactive Condition pt re assured, no intervention needed DoD changed sexual interest (libido): decreased Active Condition May have something to do with the Zoloft. Will give a trial of Wellbutrin added to the Zoloft. Discontinue if develops any adverse effects. DoD candidiasis skin candidal intertrigo Inactive Condition DoD anxiety Active Condition Stable on the Zoloft, would benefit from therapy. Consider also biofeedback. Referred to life skills. DoD visit for: issue repeat prescription for medication Inactive Condition DoD hypertension systemic Active Condition DoD obesity Active Condition DoD hyperlipidemia Active Condition DoD uterine neoplasm, benign leiomyoma Active Condition 10+cm fibro id on MRI 08/23, pt doesn't desire any intervention at this time DoD visit for: administrative purpose Inactive Condition Do D osteopenia Active Condition will reor geronimo fosamax after repeat bone density if indicated DoD visit for: screening exam for malignant neoplasm cervix Inactive Condition DoD routine gynecological exam with cervical pap smear Inactive Condition discussed need to check with referral management to get colonoscopy scheduled as previously instructed DoD amenorrhea Active Condition reassured menopausal with neg provera withdrawal 08/22 DoD cervical dysplasia: mild Active Condition will reschedule pap for annual exam DoD Administrative Evaluation Services Inactive Condition DoD essential hypertension benign Active Condition DoD tenosynovitis - trigger finger (acquired) Active Condition DoD compression arthralgia - hand Active Condition DoD bursitis hip Active Condition DoD Laboratory Studies Inactive Condition Do D visit for: issue repeat prescription Inactive Condition DoD cellulitis of the fingers Active Condition DoD Patient Education Dietary Reading Food Labels Inactive Condition DoD Patient Education Dietary Cooking Differently Inactive Condition Low fat ingredients/co oking tips were discussed. DoD Dietary Strategies When Eating Out Inactive Condition DoD obesity morbid Active Condition accor ding to BMI DoD essential hypertriglyceridemia Active Condition DoD Patient Education Dietary Inactive Condition Healthy Heart Class 3 DoD Patient Education Dietary Changing Eating Habits Inactive Condition DoD Patient Education Dietary Food Sources For Nutrients Inactive Condition DoD current diet needs less fat, more fiber Active Condition Healthy eati ng habits on how to reduce saturated fat intake and replace with fiber/soy products discussed. 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 DoD cough Active Condition DoD allergic rhinitis Active Condition DoD Dietary Counseling Pertaining To Hypercholesterolemia Inactive Condition DoD routine history and physical Inactive Condition DoD rhinolith Active Condition DoD Oral Contraceptives Inactive Condition start Thursday after onset of menses if bleeds DoD sebaceous cyst pilar Active Condition pt will be scheduled for surgery in Aug; DoD sinusitis acute maxillary Inactive Condition DoD chest tightness or heavy pressure Active Condition DoD taking female hormones for postmenopausal HRT Active Condition Do D contact dermatitis due to plants Active Condition poison lenny DoD paronychia Active Condition DoD seborrheic keratosis inflamed Active Condition pt reassured DoD eczematoid dermatitis Active Condition DoD Medications Combined list of outpatient medications from Department of Defense and Veterans Affairs facilities.Medications provided include 1) outpatient medications from the last 15 months, and 2) patient-reported medications. Medication Details Route Status Indication(s) Patie nt Instructions Prescription Expires Prescription Number Last Dispense Date Ordering Provider Order Date Order Qty Source cetirizine 10 mg tablet See Instruct ions, # 90 EA, 2 total refill(s ), Soft Stop Ordered 5 2024 90.0 Ambulat ory Pharmac y cetirizine 10 mg tablet See Instruct ions, # 90 EA, 2 total refill(s ), Hard Stop Discont inued 06/16/2024 4 2023 90.0 Ambulat ory Pharmac y cetirizine 10 mg tablet = 1 tab(s), Oral, Daily, # 90 EA, 2 total refill(s ), Hard Stop Oral (given by mouth) Discont inued 02/15/2025 5 2024 90.0 Ambulat ory Pharmac y cetirizine 10 mg tablet See Instruct ions, # 90 EA, 2 total refill(s ), Acute Discont inued 09/10/2023 3 2023 90.0 Ambulat ory Pharmac y cycloSPORIN E 0.05% (PF) eye drops UD [30EA] = 1 drop(s), Eye-Both , BID, # 180 EA, 2 total refill(s ), Hard Stop Both eyes Complet ed 04/23/20242023 180.0 Ambulat ory Pharmac y cycloSPORIN E 0.05% (PF) eye drops UD [30EA] = 1 drop(s), Eye-Both , BID, # 180 EA, 3 total refill(s ), Hard Stop Both eyes Complet ed 04/28/2024 3 2023 180.0 Ambulat ory Pharmac y cycloSPORIN E 0.05% (PF) eye drops UD [30EA] = 1 drop(s), Eye-Both , BID, # 180 EA, 3 total refill(s ), Hard Stop Both eyes Discont inued 03/03/2025 4 2024 180.0 Ambulat ory Pharmac y cycloSPORIN E 0.05% (PF) eye drops UD [30EA] See Instruct ions, # 180 EA, 3 total refill(s ), Soft Stop Ordered 5 2024 180.0 Ambulat ory Pharmac y fluticasone 50 mcg/inh nasal spray [16g] See dose instruct ions in comments , # 16 g, 5 total refill(s ), Acute Discont inued 09/10/2023 4 2023 16.0 Ambulat ory Pharmac y fluticasone 50 mcg/inh nasal spray [16g] See Instruct ions, # 16 g, 1 total refill(s ), Soft Stop Discont inued 07/28/2025 5 2024 16.0 Ambulat ory Pharmac y fluticasone 50 mcg/inh nasal spray [16g] See Instruct ions, # 16 g, 5 total refill(s ), Hard Stop Complet ed 10/26/2024 5 2024 16.0 Ambulat ory Pharmac y fluticasone 50 mcg/inh nasal spray [16g] See Instruct ions, # 16 g, 5 total refill(s ), Hard Stop Discont inued 10/27/20232023 16.0 Ambulat ory Pharmac y fluticasone 50 mcg/inh nasal spray [16g] See Instruct ions, # 16 g, 1 total refill(s ), Soft Stop Discont inued 04/06/2025 5 2024 16.0 Ambulat ory Pharmac y fluticasone 50 mcg/inh nasal spray [16g] See Instruct ions, # 16 g, 1 total refill(s ), Soft Stop Ordered 5 2024 16.0 Ambulat ory Pharmac y meloxicam 15 mg tablet 15 mg, See Instruct ions, Oral, Daily, # 30 EA, 2 total refill(s ), Hard Stop Oral (given by mouth) Discont inued 05/26/2023 3 2022 30.0 Ambulat ory Pharmac y meloxicam 15 mg tablet = 1 tab(s), Oral, Daily, # 30 EA, 0 total refill(s ), Soft Stop Oral (given by mouth) Discont inued 03/28/2025 5 2024 30.0 Ambulat ory Pharmac y meloxicam 15 mg tablet See Instruct ions, # 30 EA, 0 total refill(s ), Soft Stop Discont inued 02/20/20252024 30.0 Ambulat ory Pharmac y meloxicam 15 mg tablet See Instruct ions, Oral, # 30 EA, 0 total refill(s ), Soft Stop Oral (given by mouth) Ordered 5 2024 30.0 Ambulat ory Pharmac y meloxicam 15 mg tablet = 1 tab(s), Oral, Daily, # 30 EA, 2 total refill(s ), Hard Stop Oral (given by mouth) Discont inued 06/16/2024 4 2023 30.0 Ambulat ory Pharmac y meloxicam 15 mg tablet 15 mg, Oral, Daily, # 30 EA, 2 total refill(s ), Hard Stop Oral (given by mouth) Discont inued 02/26/2024 4 2023 30.0 Ambulat ory Pharmac y meloxicam 15 mg tablet See Instruct ions, # 30 EA, 0 total refill(s ), Soft Stop Discont inued 06/02/2025 5 2024 30.0 Ambulat ory Pharmac y meloxicam 15 mg tablet = 1 tab(s), Oral, Daily, # 30 EA, 0 total refill(s ), Soft Stop Oral (given by mouth) Discont inued 05/02/2025 5 2024 30.0 Ambulat ory Pharmac y meloxicam 15 mg tablet See Instruct ions, # 30 EA, 0 total refill(s ), Soft Stop Ordered 5 2024 30.0 Ambulat ory Pharmac y meloxicam 15 mg tablet See Instruct ions, # 30 EA, 2 total refill(s ), Hard Stop Discont inued 10/07/2024 5 2024 30.0 Ambulat ory Pharmac y meloxicam 15 mg tablet = 1 tab(s), Oral, Daily, # 30 EA, 0 total refill(s ), Soft Stop Oral (given by mouth) Discont inued 02/01/2025 5 2024 30.0 Ambulat ory Pharmac y meloxicam 15 mg tablet = 1 tab(s), Oral, Daily, # 30 EA, 2 total refill(s ), Hard Stop Oral (given by mouth) Discont inued 01/18/2025 5 2024 30.0 Ambulat ory Pharmac y nystatin topical 896284 units/g Powder [60g] See Instruct ions, # 120 g, 11 total refill(s ), Soft Stop Ordered 5 2024 120.0 Ambulat ory Pharmac y nystatin topical 391875 units/g Powder [60g] See Instruct ions, # 120 g, 11 total refill(s ), Hard Stop Discont inued 02/01/2025 4 2024 120.0 Ambulat ory Pharmac y pantoprazol e EC 40 mg tablet = 1 tab(s), Oral, Daily, # 90 EA, 2 total refill(s ), Soft Stop Oral (given by mouth) Ordered 5 2024 90.0 Ambulat ory Pharmac y pantoprazol e EC 40 mg tablet See Instruct ions, # 90 EA, 1 total refill(s ), Acute Complet ed 08/28/2023 3 2023 90.0 Ambulat ory Pharmac y pantoprazol e EC 40 mg tablet See Instruct ions, # 90 EA, 2 total refill(s ), Hard Stop Discont inued 12/20/2024 5 2024 90.0 Ambulat ory Pharmac y pantoprazol e EC 40 mg tablet 40 mg, Oral, Daily, # 90 EA, 2 total refill(s ), Hard Stop Oral (given by mouth) Discont inued 02/26/2024 4 2023 90.0 Ambulat ory Pharmac y simvastatin 40 mg tablet See Instruct ions, # 90 EA, 1 total refill(s ), Acute Complet ed 08/28/2023 3 2023 90.0 Ambulat ory Pharmac y simvastatin 40 mg tablet See Instruct ions, # 90 EA, 0 total refill(s ), Soft Stop Ordered 5 2024 90.0 Ambulat ory Pharmac y simvastatin 40 mg tablet = 1 tab(s), Oral, # 90 EA, 0 total refill(s ), Soft Stop Oral (given by mouth) Discont inued 03/23/2025 5 2024 90.0 Ambulat ory Pharmac y simvastatin 40 mg tablet See Instruct ions, # 90 EA, 0 total refill(s ), Soft Stop Discont inued 06/05/2025 5 2024 90.0 Ambulat ory Pharmac y simvastatin 40 mg tablet See Instruct ions, # 90 EA, 2 total refill(s ), Hard Stop Discont inued 02/26/2024 4 2023 90.0 Ambulat ory Pharmac y simvastatin 40 mg tablet See Instruct ions, # 90 EA, 2 total refill(s ), Hard Stop Discont inued 11/29/2024 5 2024 90.0 Ambulat ory Pharmac y telmisartan 40 mg tablet = 1 tab(s), Oral, Daily, # 90 EA, 0 total refill(s ), Soft Stop Oral (given by mouth) Ordered 5 2024 90.0 Ambulat ory Pharmac y telmisartan 40 mg tablet = 1 tab(s), Oral, Daily, # 90 EA, 0 total refill(s ), Soft Stop Oral (given by mouth) Ordered 5 2024 90.0 Ambulat ory Pharmac y telmisartan 40 mg tablet See dose instruct ions in comments , # 90 EA, 3 total refill(s ), Acute Complet ed 12/23/2023 4 2023 90.0 Ambulat ory Pharmac y telmisartan 40 mg tablet 40 mg, Oral, Daily, # 90 EA, 3 total refill(s ), Hard Stop Oral (given by mouth) Discont inued 11/29/2024 5 2024 90.0 Ambulat ory Pharmac y telmisartan 40 mg tablet = 1 tab(s), Oral, Daily, # 90 EA, 0 total refill(s ), Soft Stop Oral (given by mouth) Discont inued 03/17/2025 5 2024 90.0 Ambulat ory Pharmac y venlafaxine ER 75 mg/24 hour capsule = 1 cap(s), Oral, Daily, # 90 EA, 0 total refill(s ), Soft Stop Oral (given by mouth) Ordered 5 2024 90.0 Ambulat ory Pharmac y venlafaxine ER 75 mg/24 hour capsule See Instruct ions, # 90 EA, 3 total refill(s ), Acute Complet ed 12/02/2023 4 2023 90.0 Ambulat ory Pharmac y venlafaxine ER 75 mg/24 hour capsule See Instruct ions, # 90 EA, 0 total refill(s ), Soft Stop Discont inued 02/15/20252024 90.0 Ambulat ory Pharmac y venlafaxine ER 75 mg/24 hour capsule = 1 cap(s), Oral, Daily, # 90 EA, 0 total refill(s ), Soft Stop Oral (given by mouth) Discont inued 05/23/2025 5 2024 90.0 Ambulat ory Pharmac y venlafaxine ER 75 mg/24 hour capsule 75 mg, Oral, Daily, # 90 EA, 3 total refill(s ), Hard Stop Oral (given by mouth) Discont inued 11/29/2024 5 2024 90.0 Ambulat ory Pharmac y venlafaxine ER 75 mg/24 hour capsule = 1 cap(s), Oral, Daily, # 90 EA, 0 total refill(s ), Soft Stop Oral (given by mouth) Discont inued 02/01/2025 5 2024 90.0 Ambulat ory Pharmac y Allergies, Adverse Reactions, Alerts Combined list of allergies from Department of Defense and Veterans Affairs facilities. It does not include entries that were removed or entered in error. Substance Category Reaction Severity Reaction type Status Date Reported Comments Source BACTRIM Drug allergy (disorder) Unknown active 3 [employer] sulfa drugs Propensity to adverse reactions to drug Unknown Active 7 [facility] Organization SULFA-DRUG S {Cla } Drug allergy (disorder) Unknown active 7 [employer] Cole HAYES ([facility]) sulfametho xazole-tri methoprim Propensity to adverse reactions to drug Unknown Active Reaction( s): Unknown; Note: SWELLING, RASH, NAUSEA Unknown Organization Immunizations Combined list of available immunizations from the Department of Defense and Veterans Affairs facilities. Immunization Series Date Given Administered By Site Reaction Lot Number CVX Code Drug Junior Systems Administrator Status Comments Source influenza, injectable, quadrivalent- pf 2017 zzLef t Arm [id number] [employer] complet ed influenza , injectabl e, quadrival ent-pf 06/09/18 Given Ambulat ory Pharmac y Influenza, injectable, quadrivalent, preservative free 1 2017 Unknown, Provider [id number] [employer] (SEQ) complet ed Influenza , injectabl e, quadrival ent, preservat edwina free DoD influenza, injectable, quadrivalent 2015 zzLef t Arm [id number] [employer] complet ed influenza , injectabl e, quadrival ent 05/22/16 Given Ambulat ory Pharmac y influenza, injectable, quadrivalent, contains preservative 1 2015 Unknown, Provider [id number] (IDB) complet ed influenza , injectabl e, quadrival ent, contains preservat edwina DoD influenza, seasonal, injectable-pf 2013 zzRig ht Arm [id number] Novartis Pharmaceutica ls complet ed influenza , seasonal, injectabl e-pf 05/26/14 Given Ambulat ory Pharmac y Influenza, seasonal, injectable, preservative free 1 2013 Unknown, Provider [id number] Novartis Pharmaceutica l Yoselin. (NOV) complet ed Influenza , seasonal, injectabl e, preservat edwina free DoD influenza, seasonal, injectable 2012 zzRig ht Arm [id number] 141 sanofi pasteur complet ed influenza , seasonal, injectabl e 09/14/12 Given Ambulat ory Pharmac y Influenza, seasonal, injectable 6 2012 Unknown, Provider [id number] 141 Sanofi Pasteur ([facility]) complet ed Influenza , seasonal, injectabl e DoD tetanus, diphtheria, acellular pertu is 2010 zzRig ht Arm [id number] 115 [employer] complet ed tetanus, diphtheri a, acellular pertussis 06/23/11 Given Ambulat ory Pharmac y zoster vaccine live 2010 zzLef t Arm [id number] 121 Merck [employer] Company Inc complet ed zoster vaccine live 06/23/11 Given Ambulat ory Pharmac y tetanus toxoid, reduced diphtheria toxoid, and acellular pertu is vaccine, adsorbed 1 2010 Unknown, Provider [id number] 115 [employer] ([facility]) complet ed tetanus toxoid, reduced diphtheri a toxoid, and acellular pertussis vaccine, adsorbed DoD zoster vaccine, live 1 2010 Unknown, Provider [id number] 121 Merck (MSD) complet ed zoster vaccine, live DoD influenza, seasonal, injectable 2010 zzLef t Arm [id number] 141 sanofi pasteur complet ed influenza , seasonal, injectabl e 05/27/11 Given Ambulat ory Pharmac y Influenza, seasonal, injectable 5 2010 Unknown, Provider [id number] 141 Sanofi Pasteur ([facility]) complet ed Influenza , seasonal, injectabl e DoD influenza virus vaccine,split 2009 zzRig ht Arm [id number] 15 sanofi pasteur complet ed influenza virus vaccine,s plit 07/25/10 Given Ambulat ory Pharmac y influenza virus vaccine, split virus (incl. purified surface antigen)-reti red CODE 1 2009 Unknown, Provider [id number] 15 Sanofi Pasteur ([facility]) complet ed influenza virus vaccine, split virus (incl. purified surface antigen)- retired CODE DoD tetanus-dipht h toxoids (Td) adult/adol 2004 zzLef t Arm [id number] 09 sanofi pasteur complet ed tetanus-d iphth toxoids (Td) adult/ado l 12/09/04 Given Ambulat ory Pharmac y tetanus and diphtheria toxoids, adsorbed, preservative free, for adult use (2 Lf of tetanus toxoid and 2 Lf of diphtheria toxoid) 1 2004 Unknown, Provider [id number] 09 Sanofi Pasteur ([facility]) complet ed tetanus and diphtheri a toxoids, adsorbed, preservat edwina free, for adult use (2 Lf of tetanus toxoid and 2 Lf of diphtheri a toxoid) DoD [facility], [facility] [id number] [facility] sanofi pasteur complet ed influenza virus vaccine, whole virus 07/17/01 Given Ambulat ory Pharmac y influenza virus vaccine, whole virus 1 2000 Unknown, Provider [id number] 16 Sanofi Pasteur ([facility]) complet ed influenza virus vaccine, whole virus DoD influenza virus vaccine, whole virus 2000 [facility] t Arm [id number] [employer] complet ed influenza virus vaccine, whole virus 08/21/00 Given Ambulat ory Pharmac y influenza virus vaccine, whole virus 1 2000 Unknown, Provider [id number] [facility] complet ed influenza virus vaccine, whole virus DoD influenza virus vaccine, whole virus 1998 [id number] 16 [employer] complet ed influenza virus vaccine, whole virus 06/05/99 Given Ambulat ory Pharmac y influenza virus vaccine, whole virus 1 1998 Unknown, Provider [id number] 16 Grace ([facility]) complet ed influenza virus vaccine, whole virus DoD Encounters Combined list of: 1) Encounters from Department of Veterans Affairs facilities going backup to the last 18 months, not all VA inpatient encounters are included; 2) Encounters from the Department of Defense facilities going backup to 280 months. Location Location Details Encounter Type Encounter Number Reason For Visit Attending Provider ADM Date DC Date Status Disposition Source [address] [place] [address] Cole B [facility] Internal Medicine ) OUTPATIENT [id number] infecti on both thumbs BRITTANY BAUER 12/09 Released w/o Limitations [address] [place] [address] Cole B [facility])(S cott Interna l Medicin e Tm) [address] [place] [address] Cole B [facility])(Geronimo matology) OUTPATIENT [id number] Per [place] Munguia 12/09 Released w/o Limitations [address] [place] [address] Cole B [facility])(D ermatol ogy) [address] [place] [address] Cole B [facility])(Conference And Event Organiser ecology) TELE CONSULT [id number] AUTOMOTIVE WHOLESALE PARTS ADVISOR f/u NIKHIL RECIO 12/[address] [place] [address] Cole B [facility])(G ynecolo gy) [address] [place] [address] Cole B [facility])([employer]eronimo matology) OUTPATIENT [id number] [place] BAIRD 01/21 Released w/o Limitations [address] [place] [address] Cole B [facility])(D ermatol ogy) [address] [place] [address] Cole [facility] Internal Medicine ) TELE CONSULT [id number] med refill PB MURILLO 02/[address] [place] [address] Cole [facility])(S cott Interna l Medicin e Tm) [address] [place] [address] Cole [facility])(Geronimo matology) OUTPATIENT [id number] Rash on arm [place] BAIRD 02/27 Released w/o Limitations [address] [place] [address] Cole B [facility])(D ermatol ogy) [address] [place] [address] Cole B [facility]CHC S II Test Cole) TELE CONSULT [id number] Fibroid call back NIKHIL RECIO 03/[address] [place] [address] Cole KIMBERLYB [facility])(C HCS II Test Cole) [address] [place] [address] Cole B [facility] Internal Medicine ) TELE CONSULT [id number] med refill ZANA PEREZ 03/[address] [place] [address] Cole B [facility]S cott Interna l Medicin e Tm) [address] [place] [address] Cole [facility])(Conference And Event Organiser ecology) TELE CONSULT [id number] NIKHIL RECIO P 05/27 [facility] [employer] ([facility]G ynecolo gy) [employer] ([facility])(Conference And Event Organiser ecology) TELE CONSULT [id number] medicat ion change NIKHIL RECIO P 06/06 [facility] [employer] ([facility])(G ynecolo gy) [facility] [employer] ([facility])(Conference And Event Organiser ecology) TELE CONSULT [id number] AUTOMOTIVE WHOLESALE PARTS ADVISOR f/u NIKHIL RECIO P 07/03 [facility] [employer] ([facility])(G ynecolo gy) [facility] [employer] ([facility] Internal Medicine Tm) TELE CONSULT [id number] med PB Gold P 07/15 [facility] [employer] ([facility])(S cott Interna l Medicin e Tm) [facility] [employer] ([facility])([facility] Internal Medicine Tm) OUTPATIENT [id number] follow up , ASS08/01 Released w/o Limitations [facility] [employer] ([facility])(S cott Interna l Medicin e Tm) [facility] [employer] ([facility])(Conference And Event Organiser ecology) TELE CONSULT [id number] [employer]OL[employer] ADVISOR f/u NIKHIL RECIO P 08/01 [facility] [employer] ([facility])(G ynecolo gy) [facility] [employer] ([facility])([facility] Internal Medicine ) OUTPATIENT [id number] r/o sinus infecti on , ASSY 08/22 Released w/o Limitations [employer] ([facility])(S cott Interna l Medicin e Tm) [facility] [employer] ([facility])(Conference And Event Organiser ecology) OUTPATIENT [id number] Fibroid s (resche duled) PRITI LINDA 08/28 Released w/o Limitations [facility] [employer] ([facility])(G ynecolo gy) [facility] [employer] ([facility])([facility] ) OUTPATIENT [id number] r/o ear infecti on LIZETTE, ASSY 08/29 Released w/o Limitations [employer] ([facility])(S cott Interna l Medicin e Tm) [employer] ([facility])([facility]) OUTPATIENT [id number] cholest DELROY Rivera 09/05 Released w/o Limitations [employer] ([facility])(N utritio nal Medicin e) Medical [facility] [employer] ([facility])([facility] tt Internal Medicine ) OUTPATIENT [id number] [facility] w[facility]o Limitations [employer] ([facility])(S cott Interna l Medicin e Tm) [employer] ([facility])(Geronimo matology) OUTPATIENT [id number] cyst BAIRDNY 09/10 Released w/o Limitations [employer] ([facility])(D ermatol ogy) Medical [facility] [employer] ([facility])(Gas troentero logy Resource Sharing) OUTPATIENT [id number] Fam hx colon cancer - screeni KRISHAN Ospina 09/17 Released w/o Limitations [employer] ([facility])(G astroen terolog y Resourc e Sharing ) [facility] [employer] [facility])(Car diologyPr ocedure Schedules ) OUTPATIENT [id number] ett AMAYA Guan 10/03 Released w/o Limitations [facility] [employer] ([facility])(C ardiolo gyProce dure Schedul es) [facility] [employer] ([facility])([facility]) OUTPATIENT [id number] Part II Healthy Heart Class DELROY SALINAS 10/08 Released w/o Limitations [employer] ([facility])(N utritio nal Medicin e) Medical [facility] [employer] ([facility])([facility] tt Internal Medicine ) TELE CONSULT [id number] SINUS PAIN/IA ESSURE, DRAINAG E,COUGH PB MURILLO P 10/24[facility] [employer] ([facility])(S cott Interna l Medicin e Tm) [facility] Medical [facility] [employer] ([facility])([facility] tt Internal Medicine ) TELE CONSULT [id number] med problem PB MURILLO P 11/[employer] ([facility])(S cott Interna l Medicin e Tm) [facility] Medical [facility] [employer] ([facility])([facility]) OUTPATIENT [id number] Part III Healthy Heart Class DELROY SALINAS 11/11 Released w/o Limitations [facility] [employer] ([facility])(N utritio nal Medicin e) [facility] Medical [facility] [employer] ([facility])([facility] Internal Medicine ) OUTPATIENT [id number] fingers red and swollen and looks to be infecte d BRIAN CLIFFORD 01/09 Released w/o Limitations [facility] [employer] ([facility])(S cott Interna l Medicin e Tm) [facility] Medical [facility] [employer] ([facility])([facility] Internal Medicine ) TELE CONSULT [id number] Medicat ion refill ZANA PEREZ 01/[address] [place] [address] [employer] ([facility])(S cott Interna l Medicin e Tm) [facility] Medical [facility] [employer] ([facility])([facility] Internal Medicine ) OUTPATIENT [id number] f/u hand pain, started on tricor LIZETTE, ASSY 02/09 Released w/o Limitations [address] [place] [address] [employer] ([facility])(S cott Interna l Medicin e Tm) [facility] Medical [facility] [employer] ([facility])([facility] Internal Medicine ) TELE CONSULT [id number] finger pain getting worse JESSICA WALKER 02/[address] [place] [address] Group [employer] ([facility])(S cott Interna l Medicin e Tm) [facility] Medical [facility] [employer] ([facility])([facility] Internal Medicine ) TELE CONSULT [id number] Hand is not getting better and has questio n about Triglyc eride medicin e JS TELLO 03/05 [facility] [employer] ([facility])(S cott Interna l Medicin e Tm) [address] [place] [address] [employer] ([facility])([facility] Internal Medicine ) TELE CONSULT [id number] Lab results PUJA BUENROSTRO 03/[address] [place] [address] [employer] ([facility])(S cott Interna l Medicin e Tm) [facility] Medical [facility] [employer] ([facility])([facility] Internal Medicine ) OUTPATIENT [id number] f/u tcon hand pain; cholest wandy med issues PUJA BUENROSTRO L 04/21 Released w/o Limitations [address] [place] [address] [facility])(S cott Interna l Medicin e Tm) [address] [place] [address] [facility])([facility] Internal Medicine ) TELE CONSULT [id number] med renewal AJIT GARCIA MIC L 04/[address] [place] [address] [facility])(S cott Interna l Medicin e Tm) [address] [place] [address])([facility] Internal Medicine ) OUTPATIENT [id number] problem s with hand? VIOLETTE HUDSON 05/26 Released w/o Limitations [address] [place] [address] [facility])(S cott Interna l Medicin e Tm) [address] [place] [address] [facility])([facility] Internal Medicine ) TELE CONSULT [id number] hand VIOLETTE HUDSON 05/[address] [place] [address] [facility])(S cott Interna l Medicin e Tm) [address] [place] [address])(Conference And Event Organiser ecology) OUTPATIENT [id number] f/u pap (dyspla shelby pt) f/u fibroid PRITI LINDA R 06/22 Released w/o Limitations [address] [place] [address])(G ynecolo gy) [address] [place] [address] [facility])(Conference And Event Organiser ecology) OUTPATIENT [id number] Annual and f/u pap PRITI LINDA R 06/22 Released w/o Limitations [address] [place] [address] [facility])(G ynecolo gy) [address] [place] [address])(Conference And Event Organiser ecology) TELE CONSULT [id number] returni ng your call PRITI LINDA R 07/[address] [place] [address] [facility])(G ynecolo gy) [address] [place] [address] [facility])([facility] Internal Medicine ) TELE CONSULT [id number] medicat ion for closter fobia ELODIA FRAGOSO 07/[address] [place] [address] [facility])(S cott Interna l Medicin e Tm) [address] [place] [address])(Conference And Event Organiser ecology) TELE CONSULT [id number] results PRITI LINDA 07/[address] [place] [address] Group [facility])(G ynecolo gy) [address] [place] [address] [facility])(Conference And Event Organiser ecology) TELE CONSULT [id number] results DANIEL MARTINEZ 08/[address] [place] [address] Group [facility] ([facility])(G ynecolo gy) [address] [place] [address] Group [facility] Internal Medicine ) TELE CONSULT [id number] medicat ion refill CAPOZZOLO, ELODIA D 08/[address] [place] [address] Group [facility])(S cott Interna l Medicin e Tm) [facility] Internal Medicine ) TELE CONSULT [id number] Rx Refill ANA, ZANA E 09/07 [facility]S cott Interna l Medicin e Tm) [facility] Internal Medicine ) OUTPATIENT [id number] follow- up HTN, HLP, allergi c rhiniti s PUJA BUENROSTRO L 10/02 Released w/o Limitations [facility]S cott Interna l Medicin e Tm) [facility] Internal Medicine ) TELE CONSULT [id number] Rx Refill ANA, ZANA E 11/03 [facility]LY[facility])(S cott Interna l Medicin e Tm) [facility] Internal Medicine ) TELE CONSULT [id number] Rx Refill ANA, ZANA E 02/03 [facility])(S cott Interna l Medicin e Tm) [facility])([facility] Internal Medicine ) OUTPATIENT [id number] f/u PUJA BUENROSTRO 02/09 Released w/o Limitations [facility] [employer] [facility])(S cott Interna l Medicin e Tm) [facility])([facility] Internal Medicine ) TELE CONSULT [id number] Medicat ion refill ANA, ZANA E 03/[address] [place] [address] Group [facility] [employer] ([facility])(S cott Interna l Medicin e Tm) [address] [place] [address] Cole [facility])([facility] Internal Medicine ) TELE CONSULT [id number] Rx Refill ANA, ZANA E 04/[address] [place] [address] [facility] [employer] ([facility])(S cott Interna l Medicin e Tm) [address] [place] [address] [facility])([facility] Internal Medicine ) TELE CONSULT [id number] rx refills / referra l ANA, ZANA E 05/[address] [place] [address] Cole [facility])(S cott Interna l Medicin e Tm) [address] [place] [address] [facility] [employer] ([facility])([facility] Internal Medicine ) OUTPATIENT [id number] f/u anxiety JS TELLO 06/24 Released w/o Limitations [address] [place] [address] [facility] [employer] ([facility])(S cott Interna l Medicin e Tm) [address] [place] [address] [facility])(Conference And Event Organiser ecology) OUTPATIENT [id number] f/u vaginal region tumor PRITI LINDA R 07/14 Released w/o Limitations [address] [place] [address] [facility])(G ynecolo gy) [address] [place] [address] [facility])([facility]) OUTPATIENT [id number] new pt needs paperwo rey MUNOZ, 07/19 Released w/o Limitations [address] [place] [address] [facility] [employer] ([facility])([facility]) [address] [place] [address] [facility])([employer]eronimo matology) OUTPATIENT [id number] [place] 07/21 Released w/o Limitations [address] [place] [address] Group [facility] [employer] ([facility])(D ermatol ogy) [facility] Medical [facility])(Conference And Event Organiser ecology) TELE CONSULT [id number] Bone scan result and Fosamax PRITI LINDA R 08/[address] [place] [address] [facility] ([facility])(G ynecolo gy) [address] [place] [address] [facility])([facility] Internal Medicine ) TELE CONSULT [id number] Rx Refill ANA, ZANA E 08/03 [employer] ([facility])(S cott Interna l Medicin e Tm) [employer] ([facility])([facility]) OUTPATIENT [id number] f/u TAMMY, 08/19 Released w/o Limitations [facility] [employer] ([facility])([facility]) [facility] [employer] ([facility])([facility]) TELE CONSULT [id number] cancell ation TAMMY, 08/30 [facility] [employer] ([facility])([facility]) [facility] [employer] ([facility])([facility]) OUTPATIENT [id number] f/u TAMMY, 09/02 Released w/o Limitations [facility] [employer] ([facility])([facility]) [facility] [employer] ([facility])([facility]) TELE CONSULT [id number] No Show TAMMY, 09/22 [facility] [employer] ([facility])([facility]) [facility] [employer] ([facility])([facility] tt Internal Medicine ) OUTPATIENT [id number] congest ion, not feeling well DELROY PERLA 09/23 Released w/o Limitations [facility] [employer] ([facility])(S cott Interna l Medicin e Tm) [facility] [employer] ([facility])([facility] tt Internal Medicine Tm) TELE CONSULT [id number] Medicat ion ZANA Akhtar 11/24 [facility] [employer] ([facility])(S cott Interna l Medicin e Tm) [facility] [employer] ([facility])([facility] tt Internal Medicine Tm) OUTPATIENT [id number] follow- up HTN, HLP, anxiety PUJA BUENROSTRO 12/08 Released w/o Limitations [facility] [employer] ([facility])(S cott Interna l Medicin e Tm) [facility] [employer] ([facility])([facility]) TELE CONSULT [id number] cancell ation TAMMY, 12/13 [facility] [employer] ([facility])([facility]) [facility] [employer] [place] ([facility])([facility]) OUTPATIENT [id number] f/u TAMMY, 12/23 Released w/o Limitations [facility] [employer] [place] ([facility])([facility]) [employer] [place] ([facility])([facility]) TELE CONSULT [id number] Process Group TAMMY, 12/26 [facility] [place] ([facility])([facility]) [employer] [place] ([facility])([facility]) OUTPATIENT [id number] f/u TAMMY, 01/12 Released w/o Limitations [facility] [place] ([facility])([facility]) [facility] [employer] ([facility])([facility]) TELE CONSULT [id number] cancell ation TAMMY, 02/01 [facility] [employer] ([facility])([facility]) [employer] ([facility])([facility] Internal Medicine Tm) TELE CONSULT [id number] Medicat ion SO Flores 02/23 [facility] [employer] ([facility])(S cott Interna l Medicin e Tm) [employer] ([facility])([facility]) OUTPATIENT [id number] f/u TAMMY, 03/02 Released w/o Limitations [facility] [place] ([facility])([facility]) [facility] [place] ([facility])([facility]) TELE CONSULT [id number] pt cancell ed TAMYM, 04/03 [facility] [employer] ([facility])([facility]) [employer] ([facility])([facility]) OUTPATIENT [id number] g/u TAMMY, 04/25 Released w/o Limitations [employer] ([facility])([facility]) [employer] ([facility])([facility] tt Internal Medicine Tm) TELE CONSULT [id number] Refe rral ZANA PEREZ 04/26 [employer] ([facility])(S cott Interna l Medicin e Tm) [employer] [facility] ([facility])([facility] Internal Medicine ) TELE CONSULT [id number] Rx refZANA Blanco 05/10 [facility] [employer] ([facility])(S cott Interna l Medicin e Tm) [facility] [employer] ([facility])([facility]) TELE CONSULT [id number] cancell ation TAMMY, 05/11 [facility] [employer] ([facility])([facility]) [facility] [employer] ([facility])([facility] Internal Medicine ) TELE CONSULT [id number] concern s about colonos copy ZANA PEREZ 05/23 [facility] [employer] ([facility])(S cott Interna l Medicin e Tm) [facility] [employer] [facility] ([facility])([facility]) OUTPATIENT [id number] f/u TAMMY, 06/06 Released w/o Limitations [employer] [facility] ([facility])([facility]) [facility] [employer] [facility] ([facility])([facility]) OUTPATIENT [id number] f/u TAMMY, 06/23 Released w/o Limitations [facility] ([facility])([facility]) [facility] [employer] ([facility])([facility]) OUTPATIENT [id number] f/u TAMMY, 07/11 Released w/o Limitations [facility] ([facility])([facility]) [facility] ([facility])([facility] Internal Medicine ) TELE CONSULT [id number] med refill ZANA PEREZ 08/22 [facility] ([facility])(S cott Interna l Medicin e Tm) [facility] ([facility])([facility] Internal Medicine ) OUTPATIENT [id number] follow- up HTN, HLP, anxiety MARCO A, ENIO CPT 08/28 Released w/o Limitations [employer] ([facility])(S cott Interna l Medicin e Tm) [facility] ([facility])([facility] Internal Medicine ) TELE CONSULT [id number] med refill ANA, ZANA E 09/20 [facility] ([facility])(S cott Interna l Medicin e Tm) [facility] Josi [facility])([facility] Internal Medicine ) OUTPATIENT [id number] hard lump on back of neck MONIKA BUENROSTROAN L 09/25 Released w/o Limitations [facility] Medical [facility] ([facility])(S cott Interna l Medicin e Tm) [facility] Medical [facility] Cole Josi [facility])([facility] Internal Medicine ) TELE CONSULT [id number] Rx Refill BARCUS, PUJA L 11/09 [facility] ([facility])(S cott Interna l Medicin e Tm) [facility])([facility] Internal Medicine ) TELE CONSULT [id number] Lab work after Sep 25 MONIKA BUENROSTROAN L 11/15 [facility] Group [facility] ([facility])(S cott Interna l Medicin e Tm) [facility] Medical [facility])([facility] Internal Medicine ) TELE CONSULT [id number] refill ANA, ZANA E 12/08 [facility])(S cott Interna l Medicin e Tm) [facility])([facility] Internal Medicine ) TELE CONSULT [id number] Rx Refill ANA, ZANA E 12/14 [facility])(S cott Interna l Medicin e Tm) [facility])([facility] Internal Medicine ) TELE CONSULT [id number] Medicat ion Refill ANA, ZANA E 02/02 [facility])(S cott Interna l Medicin e Tm) [facility] Josi [facility])([facility] Internal Medicine ) TELE CONSULT [id number] REFILLS ANA, ZANA E 02/15 [facility])(S cott Interna l Medicin e Tm) [facility])([facility] Internal Medicine ) TELE CONSULT [id number] med refill ANA, ZANA E 02/[address] [place] [address] Cole HAYES [facility])(S cott Interna l Medicin e Tm) [address] [place] [address] Cole HAYES [facility])([facility] Internal Medicine ) TELE CONSULT [id number] med refill ZANA PEREZ 05/[address] [place] [address] Cole HAYES ([facility])(S cott Interna l Medicin e Tm) [address] [place] [address] Cole HAYES ([facility])([facility] Internal Medicine ) OUTPATIENT [id number] follow- up HTN, HLP, GERD AYANNAPUJA HERRERA Ruth Ann 05/31 Released w/o Limitations [address] [place] [address] Cole HAYES [facility])(S cott Interna l Medicin e Tm) [address] [place] [address] Cole Josi [facility])(Car diology ([facility])) OUTPATIENT [id number] Nuclear Stress Test Report VINCENT REILLY Killian 08/27 Released w/o Limitations [address] [place] [address] Cole HAYES ([facility])(C ardiolo gy ([facility])) [address] [place] [address] Cole Josi [facility])([facility] Internal Medicine ) TELE CONSULT [id number] Stress test result AYANNAPUJA HERRERA Ruth Ann 08/[address] [place] [address] Cole HAYES [facility])(S cott Interna l Medicin e Tm) [address] [place] [address] Cole Josi [facility])([facility] Internal Medicine ) TELE CONSULT [id number] change in referra l ZANA PEREZ 09/[address] [place] [address] Cole HAYES [facility])(S cott Interna l Medicin e Tm) [address] [place] [address] Cole [facility]AYES [facility])([facility] Internal Medicine ) TELE CONSULT [id number] request ing acute appt. ZANA PEREZ 10/[address] [place] [address] Cole HAYES [facility])(S cott Interna l Medicin e Tm) [address] [place] [address] Cole HAYES [facility])([facility] Internal Medicine ) OUTPATIENT [id number] possibl e sinus infecti on, product edwina cough,6 [phone] FREEMAN MAI 10/11 Released w/o Limitations [address] [place] [address] Cole HAYES [facility])(S cott Interna l Medicin e Tm) [address] [place] [address] Cole Josi [facility])([facility] Internal Medicine ) TELE CONSULT [id number] PT Sinus infecti on not getting better, No acutes - Ayannaus ZANA PEREZ 10/[address] [place] [address])(S cott Interna l Medicin e Tm) [address] [place] [address] [facility])([facility] Internal Medicine ) TELE CONSULT [id number] med refill ZANA PEREZ 12/[address] [place] [address])(S cott Interna l Medicin e Tm) [address] [place] [address])([facility] Internal Medicine ) TELE CONSULT [id number] rx refill HAO BORJA 02/[address] [place] [address])(S cott Interna l Medicin e Tm) [address] [place] [address])([facility] Internal Medicine ) OUTPATIENT [id number] er f/u staff infec subaceo us cyst [id number] /[id number] NAINA BARRERA 03/04 Released w/o Limitations [address] [place] [address])(S cott Interna l Medicin e Tm) [address] [place] [address])([facility] Internal Medicine ) TELE CONSULT [id number] med refill ZANA PEREZ 04/24 Referred for Appointment [address] [place] [address])(S cott Interna l Medicin e Tm) [address] [place] [address] [facility])([facility] Internal Medicine ) OUTPATIENT [id number] follow- up HTN, HLP, GERD, med renewal DELROY YEUNG 05/07 Released w/o Limitations [address] [place] [address])(S cott Interna l Medicin e Tm) [address] [place] [address])([facility] Internal Medicine ) OUTPATIENT [id number] congest ion/cou gh [phone] NAINA BARRERA 05/15 Released w/o Limitations [address] [place] [address])(S cott Interna l Medicin e Tm) [address] [place] [address] [facility])(Conference And Event Organiser ecology) OUTPATIENT [id number] annual wwe show @1445, [id number] or [id number] NOLAN RUANO 06/19 Released w/o Limitations [employer] ([facility])(G ynecolo gy) [employer] [facility] ([facility])(Conference And Event Organiser ecology) TELE CONSULT [id number] unsat pap NOLAN RUANO GERARDO 06/26 [employer] ([facility])(G ynecolo gy) [employer] [facility] ([facility])([facility] tt Internal Medicine Tm) TELE CONSULT [id number] Rx HAO Lackey 06/28 Referred for Appointment [employer] [facility] ([facility])(S cott Interna l Medicin e Tm) [employer] ([facility])([facility] tt Internal Medicine Tm) TELE CONSULT [id number] Lab results JANINA SAMPSON 07/03 Referred for Appointment [employer] [facility] ([facility])(S cott Interna l Medicin e Tm) [facility] B [facility])(Ob/ Conference And Event Organiser) TELE CONSULT [id number] lab RUANONOLAN GERARDO 07/03 [facility] ([facility])(O b/Conference And Event Organiser) [facility] ([facility])(Conference And Event Organiser ecology) OUTPATIENT [id number] Repeat pap due to unsat, [id number] , show@ 1030 NOLAN RUANO GERARDO 07/08 Released w/o Limitations [employer] [facility] ([facility])(G ynecolo gy) [employer] ([facility])([facility] Internal Medicine ) TELE CONSULT [id number] lab results ZANA PEREZ 07/08 Referred for Appointment [employer] [facility] ([facility])(S cott Interna l Medicin e Tm) [facility] ([facility])(Conference And Event Organiser ecology) OUTPATIENT [id number] Consult for fibroid surgery , [id number] , no kids, st @1015 SARAH JUÁREZ 07/25 Released w/o Limitations [employer] ([facility])(G ynecolo gy) [employer] [facility])([facility] Internal Medicine Tm) TELE CONSULT [id number] Routine appt needed/ Ronak/HAO Dwyer 11/01 [facility])(S cott Interna l Medicin e Tm) [facility])([facility] Internal Medicine ) OUTPATIENT [id number] headach es and family history of melyssaeris m [id number] DELROY YEUNG 11/15 Released w/o Limitations [address] [place] [address] [facility])(S cott Interna l Medicin e Tm) [address] [place] [address] [facility])([facility] Internal Medicine ) TELE CONSULT [id number] rx refill ANASTEPANON E 12/[address] [place] [address] Group [facility])(S cott Interna l Medicin e Tm) [address] [place] [address] [facility])([facility] Internal [facility]) TELE CONSULT [id number] rx refill STEPAN PEREZON E 01/[address] [place] [address] Group [facility])(S cott Interna l Medicin e Tm) [address] [place] [address] [facility])([facility] Internal [facility]) TELE CONSULT [id number] R Ankle Pain w/ DELROY Acevedo 03/[address] [place] [address] Group [facility])(S cott Interna l Medicin e Tm) [address] [place] [address] [facility])([facility] Internal Medicine ) TELE CONSULT [id number] ZANA PEREZ 03/[address] [place] [address] Group [facility])(S cott Interna l Medicin e Tm) [facility] Medical [facility])([facility] Internal Medicine ) OUTPATIENT [id number] follow- up HTN, HLP, labs DELROY YEUNG 04/07 Released w/o Limitations [address] [place] [address] Group [facility])(S cott Interna l Medicin e Tm) [address] [place] [address] [facility])([facility] Internal Medicine ) TELE CONSULT [id number] JANINA Foster 04/14 Referred for Appointment [facility])(S cott Interna l Medicin e Tm) [address] [place] [address] Cole [facility])([facility] Internal Medicine ) TELE CONSULT [id number] X-ray results - Ronak- [phone] - tsg ZANA PEREZ E 04/[address] [place] [address] Group [facility])(S cott Interna l Medicin e Tm) [address] [place] [address] Cole [facility])([facility] Internal Medicine ) TELE CONSULT [id number] mitrajose manuele ZANA Flores E 06/[address] [place] [address] Group [facility])(S cott Interna l Medicin e Tm) [address] [place] [address] [facility])([facility] Internal Medicine ) OUTPATIENT [id number] c/o sm amount of rectal bleedin g DELROY YEUNG 06/23 Released w/o Limitations [address] [place] [address] Group [facility])(S cott Interna l Medicin e Tm) [address] [place] [address] Cole [facility])([facility] Internal Medicine ) TELE CONSULT [id number] Lab JANINA SAMPSON 07/04 Referred for Appointment [facility] Medical [facility])(S cott Interna l Medicin e Tm) [address] [place] [address] Cole [facility])([facility] Internal Medicine ) OUTPATIENT [id number] sinus infecti on MAUDE CEDEÑO CIV 07/09 Released w/o Limitations [address] [place] [address] Group [facility])(S cott Interna l Medicin e Tm) [address] [place] [address] Cole [facility])([facility] Internal [facility]) TELE CONSULT [id number] pls send ltr JANINA SAMPSON 07/18 Referred for Appointment [facility] Medical [facility])(S cott Interna l Medicin e Tm) [facility])([facility] Internal Medicine ) TELE CONSULT [id number] pls send ltr JANINA SAMPSON 07/24 Referred for Appointment [facility])(S cott Interna l Medicin e Tm) [address] [place] [address] Cole [facility])([facility] Internal Medicine ) TELE CONSULT [id number] Mammo JANINA SAMPSON 07/25 Referred for Appointment [facility])(S cott Interna l Medicin e Tm) [address] [place] [address] Cole [facility])([facility] Internal Medicine ) TELE CONSULT [id number] Med Refill ZANA PEREZ 08/[address] [place] [address])(S cott Interna l Medicin e Tm) [address] [place] [address])([facility] Internal Medicine ) TELE CONSULT [id number] Poss. reactio n to med, PCM Dr. Yeung, ph# [phone] ZANA PEREZ 08/[address] [place] [address] Cole [facility])(S cott Interna l Medicin e Tm) [address] [place] [address])([facility] Internal Medicine ) OUTPATIENT [id number] change statin drugs DELROY YEUNG 08/21 Released w/o Limitations [address] [place] [address])(S cott Interna l Medicin e Tm) [address] [place] [address])([facility] Internal Medicine ) TELE CONSULT [id number] JANINA Foster 09/03 Referred for Appointment [address] [place] [address])(S cott Interna l Medicin e Tm) [address] [place] [address])([facility] Internal Medicine ) TELE CONSULT [id number] sabina griffith to calm her down JANINA SAMPSON 09/05 Referred for Appointment [address] [place] [address])(S cott Interna l Medicin e Tm) [address] [place] [address])([facility] Internal Medicine ) TELE CONSULT [id number] Referra ZANA Church 09/[address] [place] [address] Cole [facility])(S cott Interna l Medicin e Tm) [address] [place] [address])([facility] Internal Medicine ) OUTPATIENT [id number] Discuss meds for anxiety DELROY YEUNG 09/15 Released w/o Limitations [address] [place] [address] Cole [facility])(S cott Interna l Medicin e Tm) [address] [place] [address] Cole [facility])([facility] Internal Medicine ) TELE CONSULT [id number] suspeci ous skin mole ZANA PEREZ 09/[address] [place] [address] Cole Josi [facility])(S cott Interna l Medicin e Tm) [address] [place] [address] Cole HAYES [facility])([facility] Internal Medicine ) OUTPATIENT [id number] concern ed about suspici ous mole on back GALA MAUDE [facility] 09/24 Released w/o Limitations [address] [place] [address] Cole [facility])(S cott Interna l Medicin e Tm) [address] [place] [address] Cole Josi [facility])([facility] Internal Medicine ) OUTPATIENT [id number] recheck I and D GALAMAUDE [facility] 09/25 Released w/o Limitations [address] [place] [address] Cole Josi ([facility])(S cott Interna l Medicin e Tm) [address] [place] [address] Cole Josi [facility])([facility]) OUTPATIENT [id number] Nodules - Subcuta neous COLE HOLCOMB 09/26 Released w/o Limitations [address] [place] [address] Cole HAYES [facility])(Jose Daniel ermatoruth ann edouard) [address] [place] [address] Cole [facility]AYES [facility])([facility]) OUTPATIENT [id number] Notes Entered by: CHIDI WISEMAN 30 Sep 2011 0734 ------- ------- ------- ------- -- f/u CO[facility]OL[facility]B 09/30 Released w/o Limitations [address] [place] [address] Cole [facility]AYES [facility])(Jose Daniel ermatoruth ann edouard) [address] [place] [address] Cole [facility]AY[facility])([facility] Internal Medicine ) TELE CONSULT [id number] Continu e antibio tics? Phone . RAMIN CEDEÑOT [facility] 10/[address] [place] [address] Cole [facility]AYES [facility])(S cott Interna l Medicin e Tm) [address] [place] [address] Cole [facility]AY[facility])([facility]) OUTPATIENT [id number] Notes Entered by: SY SIEGEL 07 Oct 2011 1252 ------- ------- ------- ------- -- wound check CO[facility]OLCOMB 10/07 Released w/o Limitations [address] [place] [address] Cole HAYES [facility])(D ermatol ogy) [address] [place] [address])([facility] Internal Medicine ) OUTPATIENT [id number] f/u on new med and needs refill DELROY YEUNG 10/28 Released w/o Limitations [address] [place] [address])(S cott Interna l Medicin e Tm) [address] [place] [address])([facility] Internal Medicine ) TELE CONSULT [id number] Notes Entered by: VIRGINIA POLK 17 Dec 201114 ------- ------- ------- ------- -- Refill ASA, PCM Ronak, [phone] HAO BORJA 12/[address] [place] [address])(S cott Interna l Medicin e Tm) [address] [place] [address])([facility] Internal Medicine ) OUTPATIENT [id number] med refill RENY EUBANKS 01/01 Released w/o Limitations [address] [place] [address])(S cott Interna l Medicin e Tm) [address] [place] [address])([facility] Internal Medicine ) TELE CONSULT [id number] Notes Entered by: Genaro YEUNG 18 Jan 20121955 ------- ------- ------- ------- -- Lab JANINA SAMPSON 01/18 Referred for Appointment [address] [place] [address])(S cott Interna l Medicin e Tm) [address] [place] [address])([facility] Internal Medicine ) TELE CONSULT [id number] Notes Entered by: THAO IGLESIAS CIA 29 Jan 2012 1312 ------- ------- ------- ------- -- Med refill - ronak richardson/[facility] ZANA PEREZ 01/[address] [place] [address])(S cott Interna l Medicin e Tm) [address] [place] [address])([facility] Internal Medicine ) OUTPATIENT [id number] 1 month follow- up for olga duran DELROY YEUNG 02/04 Released w/o Limitations [address] [place] [address] Group [facility])(S cott Interna l Medicin e Tm) [address] [place] [address])([facility] Internal Medicine ) TELE CONSULT [id number] Notes Entered by: Genaro YEUNG 24 Mar 2012 0756 ------- ------- ------- ------- -- JANINA Weber 03/24 Referred for Appointment [address] [place] [address] Group [facility])(S cott Interna l Medicin e Tm) [address] [place] [address])([facility] Internal Medicine ) TELE CONSULT [id number] Notes Entered by: EARNESTINE CASAREZ 07 Apr 2012 1515 ------- ------- ------- ------- -- [employer] referra l juancho Nichols/ [phone]/ZANA Cornell 04/[address] [place] [address])(S cott Interna l Medicin e Tm) [address] [place] [address])([facility] Internal Medicine ) TELE CONSULT [id number] Notes Entered by: KAMRYN GALVIN 27 Apr 2012 1452 ------- ------- ------- ------- -- JANINA Hill 04/27 Referred for Appointment [facility] Medical [facility])(S cott Interna l Medicin e Tm) [address] [place] [address])(Conference And Event Organiser ecology) OUTPATIENT [id number] uterine fibroid SARAH Sierra 06/02 Released w/o Limitations [address] [place] [address])(G sav gy) [address] [place] [address])([facility] Internal Medicine ) TELE CONSULT [id number] Notes Entered by: HAYLEY FIGUEREDO 09 Jun 2012 1236 ------- ------- ------- ------- -- Med RefZANA Mejía 06/[address] [place] [address])(S cott Interna l Medicin e Tm) [address] [place] [address])(Conference And Event Organiser ecology) TELE CONSULT [id number] Notes Entered by: NOLAN RUANO 18 Jun 2012 0941 ------- ------- ------- ------- -- Needs repeat pap FRAN MONROE 06/[address] [place] [address])(G ynecolo gy) [address] [place] [address])([facility] Internal Medicine ) OUTPATIENT [id number] face hurts, head/ch est congest ion/gayla e blood in mucous [id number] DELROY YEUNG 09/17 Released w/o Limitations [address] [place] [address])(S cott Interna l Medicin e Tm) [address] [place] [address])([facility] Internal Medicine ) TELE CONSULT [id number] Notes Entered by: ROSENDO MACDONALD 15 Oct 2012 1633 ------- ------- ------- ------- -- Network results - Physica l Therapy 3 DELROY YEUNG 10/[address] [place] [address])(S cott Interna l Medicin e Tm) [address] [place] [address])([facility] Internal Medicine ) TELE CONSULT [id number] Notes Entered by: ROSENDO MACDONALD 01 Dec 2012 1041 ------- ------- ------- ------- -- Network Results - Physica l Therapy - 3 DELROY YEUNG 12/[address] [place] [address])(S cott Interna l Medicin e Tm) [address] [place] [address])([facility] Internal Medicine ) TELE CONSULT [id number] Notes Entered by: TIM JUAN 21 Dec 2012 1047 ------- ------- ------- ------- -- Med refill - Ronak - [phone] ZANA PEREZ 12/[address] [place] [address])(S cott Interna l Medicin e Tm) [address] [place] [address])([facility] Internal Medicine Tm) OUTPATIENT [id number] f/u HCM labs and med renewal s DELROY YEUNG 01/03 Released w/o Limitations [address] [place] [address])(S cott Interna l Medicin e Tm) [address] [place] [address])([facility] Internal Medicine Tm) TELE CONSULT [id number] Notes Entered by: Genaro YEUNG 05 Jan 2013 0831 ------- ------- ------- ------- -- ReferZANA Newton 01/[address] [place] [address])(S cott Interna l Medicin e Tm) [address] [place] [address])([facility] Internal Medicine Tm) TELE CONSULT [id number] Notes Entered by: TIM JUAN 22 Mar 2013 1116 ------- ------- ------- ------- -- Med refill - Ronak - [id number] ([phone]) HAO BORJA 03/[address] [place] [address])([facility] cott Interna l Medicin e Tm) [address] [place] [address])([facility] Internal Medicine Tm) OUTPATIENT [id number] lump in middle of chest under right breast [id number] RENY EUBANKS 05/11 Released w/o Limitations [address] [place] [address])([facility] cott Interna l Medicin e Tm) [address] [place] [address])([facility] Internal Medicine Tm) TELE CONSULT [id number] Notes Entered by: KIM EUBANKS 12 May 2013 0916 ------- ------- ------- ------- -- study results , CXR OK, abdomin al abnorma HAO Harvey 05/[address] [place] [address])([facility] cott Interna l Medicin e Tm) [address] [place] [address])([facility] Internal Medicine ) TELE CONSULT [id number] Notes Entered by: KIM EUBANKS 17 May 20131951 ------- ------- ------- ------- -- study results , ab lynnetteay TICO OSORIO 05/[address] [place] [address])([facility] Interna l Medicin e Tm) [address] [place] [address])([facility] Internal Medicine ) TELE CONSULT [id number] Notes Entered by: Veto RAYMOND 14 Jun 2013 0805 ------- ------- ------- ------- -- Growth on chest Elías * TIFFANIE BADILLO 06/[address] [place] [address])([facility] Interna l Medicin e Tm) [address] [place] [address])(Conference And Event Organiser ecology) TELE CONSULT [id number] Notes Entered by: FRAN MONROE 21 Jun 2013 1323 ------- ------- ------- ------- -- Repeat pap with vaginal cream FRAN MONROE 06/[address] [place] [address])(Lina ang gy) [address] [place] [address])(Geronimo matology) OUTPATIENT [id number] COLE Tejeda 07/04 Released w/o Limitations [address] [place] [address])(Jose Daniel edouard) [address] [place] [address])(Conference And Event Organiser ecology) TELE CONSULT [id number] Notes Entered by: FRAN MONROE 19 Jul 2013 1033 ------- ------- ------- ------- -- appt FRAN MONROE 07/[address] [place] [address] [facility])(G ynecolo gy) [address] [place] [address])([facility] tt Internal Medicine Tm) TELE CONSULT [id number] Notes Entered by: EARNESTINE CASAREZ 22 Jul 2013 1416 ------- ------- ------- ------- -- Med Refill- Ronak/6 [phone] TIFFANIE BADILLO 07/[address] [place] [address] Group [facility])([facility] cott Interna l Medicin e Tm) [address] [place] [address])([facility] tt Internal Medicine Tm) TELE CONSULT [id number] Notes Entered by: KAELYN FRITZ 04 Aug 2013 1138 ------- ------- ------- ------- -- Med refill Ronak RENY EUBANKS 08/04 [facility])(S cott Interna l Medicin e Tm) [address] [place] [address])(Conference And Event Organiser ecology) OUTPATIENT [id number] annual well /[phone] ELSIE BRIGHT 08/16 Released w/o Limitations [address] [place] [address])(G ynecolo gy) [address] [place] [address])([facility] Internal Medicine Tm) OUTPATIENT [id number] follow up blood pressur e [id number] RENY EUBANKS 08/26 Released w/o Limitations [address] [place] [address])([facility] cott Interna l Medicin e Tm) [address] [place] [address])([facility] tt Internal Medicine Tm) TELE CONSULT [id number] HAO BORJA 10/[address] [place] [address])([facility] Interna l Medicin e Tm) [address] [place] [address])([facility] tt Internal Medicine Tm) TELE CONSULT [id number] Notes Entered by: SY CAUSEY 11 Jan 2014 1429 ------- ------- ------- ------- -- Med refill/ juliocesar melton/[phone] TIFFANIE BADILLO 01/[address] [place] [address])([facility] Interna l Medicin e Tm) [address] [place] [address])([facility] Internal Medicine ) TELE CONSULT [id number] Notes Entered by: RUSTAM DEL CID [facility] 24 Jan 2014 1628 ------- ------- ------- ------- -- Lab results from 01/25/20 14 YULISA MCCANN 01/[address] [place] [address])([facility] cott Interna l Medicin e Tm) [address] [place] [address])([facility] Internal Medicine ) OUTPATIENT [id number] f/u for bp [id number] YULISA DE LA GARZA 01/31 Released w/o Limitations [address] [place] [address])([facility] cott Interna l Medicin e Tm) [address] [place] [address])([facility] Internal Medicine ) TELE CONSULT [id number] Notes Entered by: RUSTAM DEL CID [facility] 31 Jan 2014 1522 ------- ------- ------- ------- -- X-ray results from 02/01/20 14 TIFFANIE BADILLO 01/[address] [place] [address])([facility] Interna l Medicin e Tm) [address] [place] [address])([facility] Internal Medicine ) TELE CONSULT [id number] Notes Entered by: JOSE ANGEL CASTELLANO ELS 28 Feb 2014 0921 ------- ------- ------- ------- -- Lab Order Request --Time sensiti ve for Shannonda y Appt//Josi roa//[phone] TIFFANIE BADILLO 02/[address] [place] [address])([facility] Intern[facility] l Medicin e Tm) [address] [place] [address])([facility] Internal Medicine ) OUTPATIENT [id number] f/u BP per PCM YULISA MCCANN 03/02 Released w/o Limitations [address] [place] [address])([facility] Interna l Medicin e Tm) [address] [place] [address])([facility] Internal Medicine ) TELE CONSULT [id number] Notes Entered by: USHA DEL CID 02 Mar 2014 1718 ------- ------- ------- ------- -- CT Bone Scan and lab results from 03/02/20 14 TIFFANIE BADILLO 03/[address] [place] [address])([facility] Interna l Medicin e Tm) [address] [place] [address])([facility] Internal Medicine ) TELE CONSULT [id number] Notes Entered by: JEN JIMÉNEZ 02 May 2014 1327 ------- ------- ------- ------- -- Network Results - DERMATO LOGY - 04/07/14 JEN GALINDO 05/[address] [place] [address])([facility] Intern[facility] l Medicin e Tm) [address] [place] [address])([facility] Internal Medicine ) TELE CONSULT [id number] Notes Entered by: Rina RAYMOND 27 Jul 2014 0842 ------- ------- ------- ------- -- Med refill/ Blumfel geronimo/[phone] VESTA JAMISON 07/[address] [place] [address])([facility] Interna l Medicin e Tm) [address] [place] [address])([facility] Internal Medicine ) OUTPATIENT [id number] f/u, med refill MIC JONES V 07/31 Released w/o Limitations [address] [place] [address])([facility] Interna l Medicin e Tm) [address] [place] [address])(Conference And Event Organiser ecology) OUTPATIENT [id number] ELSIE DEE 10/10 Released w/o Limitations [address] [place] [address])(Lina ang gy) [address] [place] [address])([facility] Internal Medicine ) TELE CONSULT [id number] Notes Entered by: Veto RAYMOND 24 Oct 2014 1413 ------- ------- ------- ------- -- Med refill Blumfel geronimo TIFFANIE BADILLO 10/[address] [place] [address])([facility] Interna l Medicin e Tm) [address] [place] [address])([facility] Internal Medicine ) TELE CONSULT [id number] Notes Entered by: Veto RAYMOND 14 Nov 2014 1028 ------- ------- ------- ------- -- Med refill Blumfel geronimo [phone] VESTA JAMISON 11/[address] [place] [address])([facility] cott Interna l Medicin e Tm) [address] [place] [address])([facility] Internal Medicine ) TELE CONSULT [id number] Notes Entered by: KAELYN FRITZ 24 Nov 2014 1316 ------- ------- ------- ------- -- Med refill Blumfel geronimo VESTA JAMISON 11/[address] [place] [address])([facility] cott Interna l Medicin e Tm) [address] [place] [address])([facility] Internal Medicine ) OUTPATIENT [id number] YULISA DOCKERY 12/13 Released w/o Limitations [address] [place] [address])([facility] Interna l Medicin e Tm) [address] [place] [address])([facility] Internal Medicine ) TELE CONSULT [id number] Notes Entered by: RUSTAM DEL CID [facility] 14 Dec 2014 1246 ------- ------- ------- ------- -- Lab and X-ray results HAO BORJA 12/[address] [place] [address] [facility])(S cott Interna l Medicin e Tm) [address] [place] [address])([facility] Internal Medicine ) TELE CONSULT [id number] Notes Entered by: Rina RAYMOND 01 Jan 2015 0824 ------- ------- ------- ------- -- SX right throat and ear pain/Bl umfelde r/[phone] cell* VESTA JAMISON 01/[address] [place] [address] [facility])(S cott Interna l Medicin e Tm) [address] [place] [address])([facility] Internal Medicine ) OUTPATIENT [id number] Sore throat and ear Right X 2 days [facility] 01/01 Released w/o Limitations [address] [place] [address] [facility])(S cott Interna l Medicin e Tm) [address] [place] [address])([facility] Internal Medicine ) OUTPATIENT [id number] left arm pain [phone] 0 [facility] 01/23 Released w/o Limitations [address] [place] [address])([facility] cott Interna l Medicin e Tm) [address] [place] [address])([facility] Internal Medicine ) OUTPATIENT [id number] f/u tennis elbow [facility] 02/28 Released w/o Limitations [address] [place] [address] [facility])(S cott Interna l Medicin e Tm) [address] [place] [address])([facility] Internal Medicine ) TELE CONSULT [id number] Notes Entered by: JULIOCESAR MELTONRUSTAM [facility] 06 Mar 2015 0730 ------- ------- ------- ------- -- Lab test results from 03/05/20 15 HAO BORJA 03/[address] [place] [address] [facility])([facility] cott Interna l Medicin e Tm) [address] [place] [address])([facility] Internal Medicine ) TELE CONSULT [id number] Notes Entered by: Rina RAYMOND 30 Mar 2015 0951 ------- ------- ------- ------- -- Med refill/ Jerry /[phone] HAO BORJA 03/[address] [place] [address])([facility] Interna l Medicin e Tm) [address] [place] [address])([facility] Internal Medicine ) TELE CONSULT [id number] Notes Entered by: ALVIN ORANTES 04 Jun 2015 1444 ------- ------- ------- ------- -- Med renewal /casey e/830.7 370 HAO BORJA 06/[address] [place] [address])([facility] cott Interna l Medicin e Tm) [address] [place] [address])([facility] Internal Medicine ) TELE CONSULT [id number] Notes Entered by: KIANA MARION 26 Jun 2015 1022 ------- ------- ------- ------- -- Medicat ion refill HAO BORJA 06/[address] [place] [address])([facility] Interna l Medicin e Tm) [address] [place] [address])([facility] Internal Medicine ) TELE CONSULT [id number] Notes Entered by: KIANA MARION 16 Jul 2015 0927 ------- ------- ------- ------- -- Medicat ion refills HAO BORJA 07/[address] [place] [address])([facility] Interna l Medicin e Tm) [address] [place] [address])([facility] Internal Medicine ) TELE CONSULT [id number] Notes Entered by: Rina RAYMOND 20 Aug 2015 1134 ------- ------- ------- ------- -- Med renewal /Casey hope/[phone] HAO BORJA 08/[address] [place] [address] [facility])(S cott Interna l Medicin e Tm) [address] [place] [address])([facility] Internal Medicine ) OUTPATIENT [id number] F/U for blood pressur e, cholest wandy, right leg [id number] CECI SMALL V 08/23 Released w/o Limitations [address] [place] [address])([facility] Interna l Medicin e Tm) [address] [place] [address])([facility] Internal Medicine ) TELE CONSULT [id number] Notes Entered by: ROSENDO MACDONALD 17 Sep 2015 1547 ------- ------- ------- ------- -- Network - Results Physica l Therapy 6 CECI SMALL V 09/[address] [place] [address])([facility] Intern[facility] l Medicin e Tm) [address] [place] [address])([facility] Internal Medicine ) OUTPATIENT [id number] F/U physica l therapy CECI SMALL V 10/09 Released w/o Limitations [address] [place] [address])([facility] Interna l Medicin e Tm) [address] [place] [address])([facility] Internal Medicine ) TELE CONSULT [id number] Notes Entered by: Meryl TRISTAN 12 Oct 2015 1114 ------- ------- ------- ------- -- Med Renewal / Jerry / VESTA JAMISON 10/[address] [place] [address])([facility] Interna l Medicin e Tm) [address] [place] [address])([facility] Internal Medicine ) TELE CONSULT [id number] Notes Entered by: TIM JUAN 17 Dec 2015 1320 ------- ------- ------- ------- -- [facility] - Jerry - [phone] HAO BORJA 12/[address] [place] [address])([facility] cott Interna l Medicin e Tm) [address] [place] [address])([facility] Internal Medicine ) TELE CONSULT [id number] Notes Entered by: ROSENDO MACDONALD 18 Dec 2015 1646 ------- ------- ------- ------- -- Network results Physica l Therapy 6 - 6 CECI FELIX V 12/[address] [place] [address])([facility] Interna l Medicin e Tm) [address] [place] [address])([facility] Internal Medicine ) TELE CONSULT [id number] Notes Entered by: Meryl TRISTAN 07 Jan 2016 1043 ------- ------- ------- ------- -- MRI R Knee Results , Med [facility] , [place] F/U Appt / Jerry / VESTA JAMISON 01/[address] [place] [address])([facility] cott Interna l Medicin e Tm) [address] [place] [address])([facility] Internal Medicine ) OUTPATIENT [id number] F/U [facility] [place], records are here. CECI SMALL V 01/07 Released w/o Limitations [address] [place] [address])([facility] cott Interna l Medicin e Tm) [address] [place] [address])([facility] Internal Medicine ) TELE CONSULT [id number] Notes Entered by: KEATON VAUGHN 12 Feb 2016 1335 ------- ------- ------- ------- -- Network Results ORTHOPE DICS 01/23/16 CECI SOTOMAYOR V 02/[address] [place] [address])([facility] cott Interna l Medicin e Tm) [address] [place] [address])([facility]co tt Internal Medicine Tm) TELE CONSULT [id number] Notes Entered by: CORI HARDIN 17 Apr 2016 1017 ------- ------- ------- ------- -- Med refill/ Jerry // SAYWER Bhatt 04/17 Referred for Appointment [address] [place] [address])([facility] cott Interna l Medicin e Tm) [address] [place] [address])(Conference And Event Organiser ecology) TELE CONSULT [id number] Notes Entered by: TIM JUAN 28 Apr 2016 0836 ------- ------- ------- ------- -- Sx - vagina bleedin g - Sungrdeb - [phone]* [facility] NAINA NASH 04/[address] [place] [address])(G ynecochary gy) [address] [place] [address])(Conference And Event Organiser ecology) OUTPATIENT [id number] Postmen opausal bleedin g SHERIF FRAUSTO 04/29 Released w/o Limitations [address] [place] [address])(G ynecolo gy) [address] [place] [address])(Conference And Event Organiser ecology) TELE CONSULT [id number] Notes Entered by: JOSE HUFFMAN 09 May 2016 0916 ------- ------- ------- ------- -- Increas ed bleedin g NAINA NASH 05/[address] [place] [address])(G ynecolo gy) [address] [place] [address])(Conference And Event Organiser ecology) TELE CONSULT [id number] Notes Entered by: KATY FRAUSTO 13 May 2016 1613 ------- ------- ------- ------- -- Test results JORGE HUFFMAN 05/[address] [place] [address])(G ylastcolo gy) [address] [place] [address])(Conference And Event Organiser ecology) OUTPATIENT [id number] [facility] SHERIF FRAUSTO 05/22 Released w/o Limitations [address] [place] [address])(G ylastcolo gy) [address] [place] [address])([facility] Internal Medicine ) TELE CONSULT [id number] Notes Entered by: ARABELLA OLVING 23 May 2016 1354 ------- ------- ------- ------- -- Network results Optomet ry 016 CECI SMITH V 05/[address] [place] [address])([facility] cott Interna l Medicin e Tm) [address] [place] [address])([facility] Internal Medicine ) TELE CONSULT [id number] Notes Entered by: ARABELLA LOVING 23 May 2016 1403 ------- ------- ------- ------- -- Please review the results in CARLY parekh 05/23/20 16 titled Network Results - O CECI SMALL V 05/[address] [place] [address])(S cott Interna l Medicin e Tm) [address] [place] [address])(Conference And Event Organiser ecology) OUTPATIENT [id number] EMB TOMMIE COE 05/30 Released w/o Limitations [address] [place] [address])(G ynecolo gy) [address] [place] [address])(Bas e Operation al Medicine Clin) TELE CONSULT [id number] Notes Entered by: Rina COE 02 Jun 2016 0903 ------- ------- ------- ------- -- surgery TOMMIE COE 06/[address] [place] [address])(B ase Operati onal Medicin e Clin) [address] [place] [address])(Ob/ Conference And Event Organiser) TELE CONSULT [id number] Notes Entered by: ZOE ARMIJO 03 Jun 2016 1529 ------- ------- ------- ------- -- Jean Claude coronel for surgery [id number] @0830 YULISA ARMIJO 06/[address] [place] [address])(O b/Conference And Event Organiser) [address] [place] [address])(Conference And Event Organiser ecology) TELE CONSULT [id number] Notes Entered by: KATY FRAUSTO 04 Jun 2016 1305 ------- ------- ------- ------- -- Test results JORGE HUFFMAN 06/[address] [place] [address])(Lina ang gy) [address] [place] [address])(Ob/ Conference And Event Organiser) TELE CONSULT [id number] TOMMIE COE 06/[address] [place] [address])(O b/Conference And Event Organiser) [address] [place] [address])([facility] tt Internal Medicine Tm) TELE CONSULT [id number] Notes Entered by: Meryl TRISTAN 09 Jun 2016 1456 ------- ------- ------- ------- -- Gerald Rodas / Jerry / - SAWYER Resendez 06/09 Referred for Appointment [address] [place] [address])(S cott Interna l Medicin e Tm) [address] [place] [address])(Conference And Event Organiser ecology) OUTPATIENT [id number] post op [phone] TOMMIE COE 06/17 Released w/o Limitations [address] [place] [address])(G ynecolo gy) [address] [place] [address])([facility] tt Internal Medicine Tm) OUTPATIENT [id number] Notes Entered by: ARGENIS ROCK 17 Jun 2016 1131 ------- ------- ------- ------- -- BP CECI Archer V 06/17 Released w/o Limitations [address] [place] [address])(S cott Interna l Medicin e Tm) [address] [place] [address])(Conference And Event Organiser ecology) TELE CONSULT [id number] Notes Entered by: DONNIE QUINTANILLA 18 Jun 2016 1200 ------- ------- ------- ------- -- Network Results -OBGONSALON 6 FINAL REPORT TOMMIE LI 06/[address] [place] [address])(Lina nguyen) [address] [place] [address])(Conference And Event Organiser ecology) TELE CONSULT [id number] Notes Entered by: JOSE HUFFMAN 23 Jun 2016 1331 ------- ------- ------- ------- -- Schedul e hysterc TOMMIE Billingsley 06/[address] [place] [address])(Lina nguyen) [address] [place] [address])([facility] Internal Medicine ) TELE CONSULT [id number] Notes Entered by: DANAE GREEN 01 Jul 2016 0734 ------- ------- ------- ------- -- Sx - Multipl e janellx/Man vaughan/[phone] TICO YI 07/[address] [place] [address])(S cott Interna l Medicin e Tm) [address] [place] [address])([facility] Internal Medicine Tm) TELE CONSULT [id number] Notes Entered by: Meryl TRISTAN 09 Jul 2016 0842 ------- ------- ------- ------- -- Gerald Rodas / Jerry / [phone] - SAWYER Resendez 07/09 Referred for Appointment [facility])(S cott Interna l Medicin e Tm) [facility])(Conference And Event Organiser ecology) TELE CONSULT [id number] Notes Entered by: SIVA BENNETTARISTIDES 09 Jul 2016 0858 ------- ------- ------- ------- -- [facility] TOMMIE COE 07/[address] [place] [address] Group [facility])(G ynecolo gy) [address] [place] [address] [facility])([facility] Internal Medicine Tm) OUTPATIENT [id number] CECI Preston V 07/22 Released w/o Limitations [address] [place] [address] Group [facility])(S cott Interna l Medicin e Tm) [address] [place] [address])([facility] tt TNF OP) OUTPATIENT [id number] Reschul e for Grief KENYA BROWN 07/25 Released w/o Limitations [address] [place] [address])(S cott MTF BHOP) [address] [place] [address])([facility] TNF [facility]) OUTPATIENT [id number] F/U. [id number] KENYA BROWN 07/28 Released w/o Limitations [address] [place] [address])(S cott TNF BHOP) [address] [place] [address])([facility] tt Internal Medicine Tm) TELE CONSULT [id number] Notes Entered by: CORI HARDIN 05 Aug 2016 1304 ------- ------- ------- ------- -- Med refills /Casey hope/ /VESTA Barnett 08/[address] [place] [address])(S cott Interna l Medicin e Tm) [address] [place] [address])([facility] Internal Medicine Tm) TELE CONSULT [id number] Notes Entered by: DANAE GREEN 26 Aug 2016 0808 ------- ------- ------- ------- -- Med Juancho /Casey e/830.7 370 VESTA JAMISON 08/[address] [place] [address])(S cott Interna l Medicin e Tm) [address] [place] [address])(Conference And Event Organiser ecology) TELE CONSULT [id number] Notes Entered by: SIVA BENNETTARISTIDES 15 Sep 2016 1522 ------- ------- ------- ------- -- Medicat ion request TOMMIE COE 09/[address] [place] [address])(Lina ang gy) [address] [place] [address])(Conference And Event Organiser ecology) OUTPATIENT [id number] pre op - see at ob clinic - [phone] TOMMIE COE 10/02 Released w/o Limitations [address] [place] [address])(Lina ang gy) [address] [place] [address])(Conference And Event Organiser ecology) TELE CONSULT [id number] Notes Entered by: JOSE HUFFMAN 08 Oct 2016 0829 ------- ------- ------- ------- -- Oct 31 surgery JORGE HUFFMAN 10/[address] [place] [address])(Lina ang gy) [address] [place] [address])(Conference And Event Organiser ecology) TELE CONSULT [id number] Notes Entered by: SIVA BENNETTARISTIDES 20 Oct 2016 1048 ------- ------- ------- ------- -- Cancell ation of surgery TOMMIE COE 10/[address] [place] [address])(Lina ang gy) [address] [place] [address])(Sco tt Internal Medicine ) TELE CONSULT [id number] Notes Entered by: DANAE GREEN 05 Dec 2016 1252 ------- ------- ------- ------- -- Med Renewal /Casey hope/ VESTA JAMISON 12/[address] [place] [address] Group [facility])(S cott Interna l Medicin e Tm) [address] [place] [address])([facility] Internal Medicine ) TELE CONSULT [id number] Notes Entered by: ZAN SILVA 17 Dec 2016 1110 ------- ------- ------- ------- -- Med Renewal / Jerry / - sgj SAWYER LOUIS 12/17 Referred for Appointment [address] [place] [address] [facility])(S cott Interna l Medicin e Tm) [address] [place] [address] [facility])(Conference And Event Organiser ecology) TELE CONSULT [id number] Notes Entered by: ARISTIDES DAILY 17 Dec 2016 1421 ------- ------- ------- ------- -- Update for JORGE Hernandez 12/[address] [place] [address] [facility])(Lina ang gy) [address] [place] [address] [facility])([facility] Internal Medicine ) OUTPATIENT [id number] f/u cough and annual labs CECI SMALL V 12/30 Released w/o Limitations [address] [place] [address])(S cott Interna l Medicin e Tm) [address] [place] [address])(Ob/ Conference And Event Organiser) TELE CONSULT [id number] Notes Entered by: ZOE ARMIJO 26 Jan 2017 1310 ------- ------- ------- ------- -- Postpon e TOMMIE Dias 01/[address] [place] [address] [facility])(O b/Conference And Event Organiser) [address] [place] [address] [facility])([facility] Internal Medicine ) TELE CONSULT [id number] Notes Entered by: SHANNAN NIEVES 03 Feb 2017 0901 ------- ------- ------- ------- -- Rx renewal - Jerry - - [facility] [place] [place] SAWYER LOUIS 02/03 Referred for Appointment [address] [place] [address])(S cott Interna l Medicin e Tm) [address] [place] [address])([facility] Internal Medicine Tm) TELE CONSULT [id number] Notes Entered by: ADDISON LUDWIG 06 Mar 2017 1241 ------- ------- ------- ------- -- Network results Cardiol ogy 02/11/17 CECI TRAN V 03/[address] [place] [address])(S cott Interna l Medicin e Tm) [address] [place] [address])(Conference And Event Organiser ecology) TELE CONSULT [id number] Notes Entered by: JOSE HUFFMAN 11 Mar 2017 1419 ------- ------- ------- ------- -- Cardio Report JORGE HUFFMAN 03/[address] [place] [address])(Lina nguyen) [address] [place] [address])(Conference And Event Organiser ecology) OUTPATIENT [id number] pre-op TOMMIE COE 03/19 Released w/o Limitations [address] [place] [address])(Lina ang gy) [address] [place] [address])(Conference And Event Organiser ecology) TELE CONSULT [id number] Notes Entered by: ZOE ARMIJO 31 Mar 2017 0940 ------- ------- ------- ------- -- Jean Claude coronel for surgery [id number] YULISA ARMIJO 03/[address] [place] [address])(G sav gy) [address] [place] [address])(Conference And Event Organiser ecology) TELE CONSULT [id number] Notes Entered by: ARISTIDES DAILY 06 Apr 2017 1522 ------- ------- ------- ------- -- Scanned cristhian gy results into CARLY TOMMIE COE 04/[address] [place] [address])(G ynecolo gy) [address] [place] [address])(Conference And Event Organiser ecology) OUTPATIENT [id number] discuss lab results - [phone] TOMMIE COE 04/07 Released w/o Limitations [address] [place] [address])(G ynecolo gy) [address] [place] [address])(Conference And Event Organiser ecology) TELE CONSULT [id number] Notes Entered by: FRAN MONROE 10 Apr 2017 0935 ------- ------- ------- ------- -- records FRAN MONROE 04/[address] [place] [address])(G ynecolo gy) [address] [place] [address])(Ob/ Conference And Event Organiser) TELE CONSULT [id number] Notes Entered by: EMEKA MIR 24 Apr 2017 1147 ------- ------- ------- ------- -- Network results MAIN LINE ASSEMBLER 017 TOMMIE BILLINGSLEY 04/[address] [place] [address])(O b/Conference And Event Organiser) [address] [place] [address])([facility] Internal Medicine ) TELE CONSULT [id number] Notes Entered by: Meryl TRISTAN 29 Apr 2017 0951 ------- ------- ------- ------- -- STAT Apr Appt-Co saeid Rectal Referra l Req - Spec Appt F/U/ Jerry / SHASTA CARIAS 04/29 Referred for Appointment [address] [place] [address])(S cott Interna l Medicin e ) [address] [place] [address])([facility] Internal Medicine ) TELE CONSULT [id number] Notes Entered by: Genaro WALLER 08 May 2017 1527 ------- ------- ------- ------- -- Network results Gynecol ogy Oncolog y 04/27/17 CECI HERNANDEZ V 05/[address] [place] [address])(S cott Interna l Medicin e Tm) [address] [place] [address])(Conference And Event Organiser ecology) TELE CONSULT [id number] Notes Entered by: DONNIE QUINTANILLA 05 Jun 2017 0834 ------- ------- ------- ------- -- Network Results -AUTOMOTIVE WHOLESALE PARTS ADVISOR/ON COLOGY 7 TOMMIE LI 06/[address] [place] [address])(G ynecolo gy) [address] [place] [address])(Fam melania Med Tm B Non-AD BCC) TELE CONSULT [id number] Notes Entered by: Lina GAVIRIA 15 Jun 2017 1505 ------- ------- ------- ------- -- Med refill ( pt complet ovidio out) (gwp) TICO YI 06/[address] [place] [address])(F amily Med Tm B Non-AD BCC) [address] [place] [address])(Ob/ Conference And Event Organiser) TELE CONSULT [id number] TOMMIE COE 06/[address] [place] [address])(O b/Conference And Event Organiser) [address] [place] [address])([facility] Internal Medicine ) OUTPATIENT [id number] multipl e concern s/follo w CECI Armstrong V 06/25 Released w/o Limitations [address] [place] [address])(S cott Interna l Medicin e Tm) [address] [place] [address])([facility]) OUTPATIENT [id number] grief student services counselor SCAR Cisneros 06/30 Released w/o Limitations [address] [place] [address])(S cott TNF [facility]) [address] [place] [address])([facility] Internal Medicine ) TELE CONSULT [id number] Notes Entered by: JONN LEON RET 14 Sep 2017 0923 ------- ------- ------- ------- -- Rx Renewal /Casey hope/ TICO Crowe 09/[address] [place] [address])(S cott Interna l Medicin e Tm) [address] [place] [address])([facility] Internal Medicine ) TELE CONSULT [id number] Notes Entered by: ALVIN ORANTES 07 Dec 2017 1140 ------- ------- ------- ------- -- Med renewal /casey hope/ [facility] VESTA JAMISON 12/[address] [place] [address])(S cott Interna l Medicin e Tm) [address] [place] [address])([facility] Internal Medicine ) OUTPATIENT [id number] Annual visit, lab results , med results CECI SMALL V 12/22 Released w/o Limitations [address] [place] [address])(S cott Interna l Medicin e Tm) [address] [place] [address])([facility] Internal Medicine ) TELE CONSULT [id number] Notes Entered by: ZAN SILVA 22 Jan 2018 0941 ------- ------- ------- ------- -- Info of Episode Last Night / Jerry / - sgj MINA CRANDALL 01/[address] [place] [address])(S cott Interna l Medicin e Tm) [address] [place] [address])([facility] Internal Medicine ) OUTPATIENT [id number] Transie nt chest tightne ss 1wk ago. Request EKG CECI SMALL V 01/28 Released w/o Limitations [address] [place] [address])(S cott Interna l Medicin e Tm) [address] [place] [address])([facility] tt Internal Medicine Tm) TELE CONSULT [id number] Notes Entered by: VESTA JAMISON 09 Jun 2018 0822 ------- ------- ------- ------- -- Med refill VESTA JAMISON 06/09 Medication Refill Forwarded [address] [place] [address])(S cott Interna l Medicin e Tm) [address] [place] [address])(Ob/ Conference And Event Organiser) TELE CONSULT [id number] Notes Entered by: Ruslan WHITE 02 Aug 2018 0940 ------- ------- ------- ------- -- Rommel an request ed T-CON for Network Results -AUTOMOTIVE WHOLESALE PARTS ADVISOR 018 TOMMIE NORRIS 08/[address] [place] [address])(O b/Conference And Event Organiser) [address] [place] [address])(Conference And Event Organiser ecology) TELE CONSULT [id number] Notes Entered by: Veto ZELAYA 20 Jan 2019 1341 ------- ------- ------- ------- -- AUTOMOTIVE WHOLESALE PARTS ADVISOR ONC Progres s Note CHIP ZELAYA 01/20 Referred for Appointment [address] [place] [address])(G ynecolo gy) Procedures Combined list of: 1) Procedures from Department of Veterans Affairs facilities going back up to thelast 18 months, not all VA non-surgical procedures are included; 2) All procedures from the Department of Defense facilities. Procedure Procedure Type Code Date Perfomer Comments Sourc e No data available for this section [facility] TELE ASSESS & MGT SRV PROV QUAL NONPHYS HLTH CARE PRO TO EST PAT,PARENT,GUARD NOT ORIG REL ASSESS & MGT SRV PROV W/IN PREV 7 DAYS NOR LEAD ASSESS & MGT SRV/PX W/IN NXT 24 HR/SOON APT;5-10 MIN MED DIS [facility] ELECTROCARDIOGRAM, ROUTINE ECG WITH AT LEAST 12 LEADS; WITH INTERPRETATION AND REPORT 06/15/2 018 DoD TELE ASSESS & MGT SRV PROV QUAL NONPHYS HLTH CARE PRO TO EST PAT,PARENT,GUARD NOT ORIG REL ASSESS & MGT SRV PROV W/IN PREV 7 DAYS NOR LEAD ASSESS & MGT SRV/PX W/IN NXT 24H/SOON APT; 11-20 MIN MED DIS 018 DoD TELE ASSESS & MGT SRV PROV QUAL NONPHYS HLTH CARE PRO TO EST PAT,PARENT,GUARD NOT ORIG REL ASSESS & MGT SRV PROV W/IN PREV 7 DAYS NOR LEAD ASSESS & MGT SRV/PX W/IN NXT 24 HR/SOON APT;5-10 MIN MED DIS 018 DoD TELE ASSESS & MGT SRV PROV QUAL NONPHYS HLTH CARE PRO TO EST PAT,PARENT,GUARD NOT ORIG REL ASSESS & MGT SRV PROV W/IN PREV 7 DAYS NOR LEAD ASSESS & MGT SRV/PX W/IN NXT 24 HR/SOON APT;5-10 MIN MED DIS 018 [facility] HEALTH&BEHAV ASSESSMENT (EG, HEALTH-FOC CLINICAL INTERVIEW, BEHAVIORAL OBSERVATIONS, PSYCHOPHYSICOLOGICAL MONITOR, HEALTH-ORIENT QUESTIONNAIRES), EA 15 MIN WKIP-MA-[id number] W THE PATIENT; INIT ASSESSMENT [facility] BRIEF EMOTIONAL/BEHAVIORAL ASSESSMENT (EG, DEPRESSION INVENTORY, ATTENTION-DEFICIT/HYPER ACTIVITY DISORDER [ADHD] SCALE), WITH SCORING AND DOCUMENTATION, PER STANDARDIZED INSTRUMENT 017 DoD TELE ASSESS & MGT SRV PROV QUAL NONPHYS HLTH CARE PRO TO EST PAT,PARENT,GUARD NOT ORIG REL ASSESS & MGT SRV PROV W/IN PREV 7 DAYS NOR LEAD ASSESS & MGT SRV/PX W/IN NXT 24 HR/SOON APT;5-10 MIN MED DIS 017 DoD TELE ASSESS & MGT SRV PROV QUAL NONPHYS HLTH CARE PRO TO EST PAT,PARENT,GUARD NOT ORIG REL ASSESS & MGT SRV PROV W/IN PREV 7 DAYS NOR LEAD ASSESS & MGT SRV/PX W/IN NXT 24 HR/SOON APT;5-10 MIN MED DIS 017 [facility] HYSTEROSCOPY, SURGICAL; WITH SAMPLING (BIOPSY) OF ENDOMETRIUM AND/OR POLYPECTOMY, WITH OR WITHOUT D & C 017 DoD TELE ASSESS & MGT SRV PROV QUAL NONPHYS HLTH CARE PRO TO EST PAT,PARENT,GUARD NOT ORIG REL ASSESS & MGT SRV PROV W/IN PREV 7 DAYS NOR LEAD ASSESS & MGT SRV/PX W/IN NXT 24 HR/SOON APT;5-10 MIN MED DIS 017 DoD TELE ASSESS & MGT SRV PROV QUAL NONPHYS HLTH CARE PRO TO EST PAT,PARENT,GUARD NOT ORIG REL ASSESS & MGT SRV PROV W/IN PREV 7 DAYS NOR LEAD ASSESS & MGT SRV/PX W/IN NXT 24 HR/SOON APT;5-10 MIN MED DIS 017 DoD TELE ASSESS & MGT SRV PROV QUAL NONPHYS HLTH CARE PRO TO EST PAT,PARENT,GUARD NOT ORIG REL ASSESS & MGT SRV PROV W/IN PREV 7 DAYS NOR LEAD ASSESS & MGT SRV/PX W/IN NXT 24 HR/SOON APT;5-10 MIN MED DIS 017 DoD TELE ASSESS & MGT SRV PROV QUAL NONPHYS HLTH CARE PRO TO EST PAT,PARENT,GUARD NOT ORIG REL ASSESS & MGT SRV PROV W/IN PREV 7 DAYS NOR LEAD ASSESS & MGT SRV/PX W/IN NXT 24 HR/SOON APT;5-10 MIN MED DIS 017 DoD TELE ASSESS & MGT SRV PROV QUAL NONPHYS HLTH CARE PRO TO EST PAT,PARENT,GUARD NOT ORIG REL ASSESS & MGT SRV PROV W/IN PREV 7 DAYS NOR LEAD ASSESS & MGT SRV/PX W/IN NXT 24 HR/SOON APT;5-10 MIN MED DIS 016 [facility] BRIEF EMOTIONAL/BEHAVIORAL ASSESSMENT (EG, DEPRESSION INVENTORY, ATTENTION-DEFICIT/HYPER ACTIVITY DISORDER [ADHD] SCALE), WITH SCORING AND DOCUMENTATION, PER STANDARDIZED INSTRUMENT [facility] BRIEF EMOTIONAL/BEHAVIORAL ASSESSMENT (EG, DEPRESSION INVENTORY, ATTENTION-DEFICIT/HYPER ACTIVITY DISORDER [ADHD] SCALE), WITH SCORING AND DOCUMENTATION, PER STANDARDIZED INSTRUMENT DoD TELE ASSESS & MGT SRV PROV QUAL NONPHYS HLTH CARE PRO TO EST PAT,PARENT,GUARD NOT ORIG REL ASSESS & MGT SRV PROV W/IN PREV 7 DAYS NOR LEAD ASSESS & MGT SRV/PX W/IN NXT 24 HR/SOON APT;5-10 MIN MED DIS 016 DoD TELE ASSESS & MGT SRV PROV QUAL NONPHYS HLTH CARE PRO TO EST PAT,PARENT,GUARD NOT ORIG REL ASSESS & MGT SRV PROV W/IN PREV 7 DAYS NOR LEAD ASSESS & MGT SRV/PX W/IN NXT 24 HR/SOON APT;5-10 MIN MED DIS 016 DoD TELE ASSESS & MGT SRV PROV QUAL NONPHYS HLTH CARE PRO TO EST PAT,PARENT,GUARD NOT ORIG REL ASSESS & MGT SRV PROV W/IN PREV 7 DAYS NOR LEAD ASSESS & MGT SRV/PX W/IN NXT 24 HR/SOON APT;5-10 MIN MED DIS 016 DoD ENDOMETRIAL SAMPLING (BIOPSY) WITH OR WITHOUT ENDOCERVICAL SAMPLING (BIOPSY), WITHOUT CERVICAL DILATION, ANY METHOD (SEPARATE PROCEDURE) 016 DoD TELE ASSESS & MGT SRV PROV QUAL NONPHYS HLTH CARE PRO TO EST PAT,PARENT,GUARD NOT ORIG REL ASSESS & MGT SRV PROV W/IN PREV 7 DAYS NOR LEAD ASSESS & MGT SRV/PX W/IN NXT 24 HR/SOON APT;5-10 MIN MED DIS 016 DoD TELE ASSESS & MGT SRV PROV QUAL NONPHYS HLTH CARE PRO TO EST PAT,PARENT,GUARD NOT ORIG REL ASSESS & MGT SRV PROV W/IN PREV 7 DAYS NOR LEAD ASSESS & MGT SRV/PX W/IN NXT 24 HR/SOON APT;5-10 MIN MED DIS 016 DoD TELE ASSESS & MGT SRV PROV QUAL NONPHYS HLTH CARE PRO TO EST PAT,PARENT,GUARD NOT ORIG REL ASSESS & MGT SRV PROV W/IN PREV 7 DAYS NOR LEAD ASSESS & MGT SRV/PX W/IN NXT 24 HR/SOON APT;5-10 MIN MED DIS 016 DoD TELE ASSESS & MGT SRV PROV QUAL NONPHYS HLTH CARE PRO TO EST PAT,PARENT,GUARD NOT ORIG REL ASSESS & MGT SRV PROV W/IN PREV 7 DAYS NOR LEAD ASSESS & MGT SRV/PX W/IN NXT 24 HR/SOON APT;5-10 MIN MED DIS 016 DoD TELE ASSESS & MGT SRV PROV QUAL NONPHYS HLTH CARE PRO TO EST PAT,PARENT,GUARD NOT ORIG REL ASSESS & MGT SRV PROV W/IN PREV 7 DAYS NOR LEAD ASSESS & MGT SRV/PX W/IN NXT 24 HR/SOON APT;5-10 MIN MED DIS 016 DoD TELE ASSESS & MGT SRV PROV QUAL NONPHYS HLTH CARE PRO TO EST PAT,PARENT,GUARD NOT ORIG REL ASSESS & MGT SRV PROV W/IN PREV 7 DAYS NOR LEAD ASSESS & MGT SRV/PX W/IN NXT 24 HR/SOON APT;5-10 MIN MED DIS 016 DoD TELE ASSESS & MGT SRV PROV QUAL NONPHYS HLTH CARE PRO TO EST PAT,PARENT,GUARD NOT ORIG REL ASSESS & MGT SRV PROV W/IN PREV 7 DAYS NOR LEAD ASSESS & MGT SRV/PX W/IN NXT 24 HR/SOON APT;5-10 MIN MED DIS 016 DoD TELE ASSESS & MGT SRV PROV QUAL NONPHYS HLTH CARE PRO TO EST PAT,PARENT,GUARD NOT ORIG REL ASSESS & MGT SRV PROV W/IN PREV 7 DAYS NOR LEAD ASSESS & MGT SRV/PX W/IN NXT 24 HR/SOON APT;5-10 MIN MED DIS DoD PSYCHIATRIC EVALUATION OF HOSPITAL RECORDS, OTHER PSYCHIATRIC REPORTS, PSYCHOMETRIC AND/OR PROJECTIVE TESTS, AND OTHER ACCUMULATED DATA FOR MEDICALDIAGNOSTIC PURPOSES DoD PSYCHOTHERAPY, 45 MINUTES WITH PATIENT 015 DoD PSYCHOTHERAPY, 45 MINUTES WITH PATIENT 015 DoD PSYCHOTHERAPY, 45 MINUTES WITH PATIENT 015 DoD PSYCHOTHERAPY, 45 MINUTES WITH PATIENT 015 DoD TELE ASSESS & MGT SRV PROV QUAL NONPHYS HLTH CARE PRO TO EST PAT,PARENT,GUARD NOT ORIG REL ASSESS & MGT SRV PROV W/IN PREV 7 DAYS NOR LEAD ASSESS & MGT SRV/PX W/IN NXT 24 HR/SOON APT;5-10 MIN MED DIS 015 DoD PSYCHOTHERAPY, 45 MINUTES WITH PATIENT 015 DoD PSYCHOTHERAPY, 45 MINUTES WITH PATIENT 015 DoD TELE ASSESS & MGT SRV PROV QUAL NONPHYS HLTH CARE PRO TO EST PAT,PARENT,GUARD NOT ORIG REL ASSESS & MGT SRV PROV W/IN PREV 7 DAYS NOR LEAD ASSESS & MGT SRV/PX W/IN NXT 24 HR/SOON APT;5-10 MIN MED DIS DoD TELE ASSESS & MGT SRV PROV QUAL NONPHYS HLTH CARE PRO TO EST PAT,PARENT,GUARD NOT ORIG REL ASSESS & MGT SRV PROV W/IN PREV 7 DAYS NOR LEAD ASSESS & MGT SRV/PX W/IN NXT 24 HR/SOON APT;5-10 MIN MED DIS DoD CERVICAL OR VAGINAL CANCER SCREENING; PELVIC AND CLINICAL BREAST EXAMINATION DoD PSYCHOTHERAPY, 45 MINUTES WITH PATIENT DoD PSYCHOTHERAPY, 45 MINUTES WITH PATIENT DoD PSYCHOTHERAPY, 45 MINUTES WITH PATIENT DoD PSYCHOTHERAPY, 45 MINUTES WITH PATIENT DoD PSYCHOTHERAPY, 45 MINUTES WITH PATIENT DoD PSYCHOTHERAPY, 45 MINUTES WITH PATIENT DoD PSYCHOTHERAPY, 45 MINUTES WITH PATIENT DoD PSYCHOTHERAPY, 45 MINUTES WITH PATIENT DoD PSYCHOTHERAPY, 45 MINUTES WITH PATIENT DoD TELE ASSESS & MGT SRV PROV QUAL NONPHYS HLTH CARE PRO TO EST PAT,PARENT,GUARD NOT ORIG REL ASSESS & MGT SRV PROV W/IN PREV 7 DAYS NOR LEAD ASSESS & MGT SRV/PX W/IN NXT 24 HR/SOON APT;5-10 MIN MED DIS DoD TELE ASSESS & MGT SRV PROV QUAL NONPHYS HLTH CARE PRO TO EST PAT,PARENT,GUARD NOT ORIG REL ASSESS & MGT SRV PROV W/IN PREV 7 DAYS NOR LEAD ASSESS & MGT SRV/PX W/IN NXT 24 HR/SOON APT;5-10 MIN MED DIS DoD PSYCHOTHERAPY, 45 MINUTES WITH PATIENT DoD PSYCHOTHERAPY, 45 MINUTES WITH PATIENT DoD TELE ASSESS & MGT SRV PROV QUAL NONPHYS HLTH CARE PRO TO EST PAT,PARENT,GUARD NOT ORIG REL ASSESS & MGT SRV PROV W/IN PREV 7 DAYS NOR LEAD ASSESS & MGT SRV/PX W/IN NXT 24 HR/SOON APT;5-10 MIN MED DIS DoD TELE ASSESS & MGT SRV PROV QUAL NONPHYS HLTH CARE PRO TO EST PAT,PARENT,GUARD NOT ORIG REL ASSESS & MGT SRV PROV W/IN PREV 7 DAYS NOR LEAD ASSESS & MGT SRV/PX W/IN NXT 24 HR/SOON APT;5-10 MIN MED DIS DoD PSYCHOTHERAPY, 45 MINUTES WITH PATIENT DoD PSYCHOTHERAPY, 45 MINUTES WITH PATIENT DoD TELE ASSESS & MGT SRV PROV QUAL NONPHYS HLTH CARE PRO TO EST PAT,PARENT,GUARD NOT ORIG REL ASSESS & MGT SRV PROV W/IN PREV 7 DAYS NOR LEAD ASSESS & MGT SRV/PX W/IN NXT 24 HR/SOON APT;5-10 MIN MED DIS DoD PSYCHOTHERAPY, 60 MINUTES WITH PATIENT DoD CERVICAL OR VAGINAL CANCER SCREENING; PELVIC AND CLINICAL BREAST EXAMINATION DoD PSYCHOTHERAPY, 60 MINUTES WITH PATIENT DoD PSYCHOTHERAPY, 60 MINUTES WITH PATIENT DoD TELE ASSESS & MGT SRV PROV QUAL NONPHYS HLTH CARE PRO TO EST PAT,PARENT,GUARD NOT ORIG REL ASSESS & MGT SRV PROV W/IN PREV 7 DAYS NOR LEAD ASSESS & MGT SRV/PX W/IN NXT 24 HR/SOON APT;5-10 MIN MED DIS DoD PSYCHOTHERAPY, 60 MINUTES WITH PATIENT DoD PSYCHOTHERAPY, 60 MINUTES WITH PATIENT DoD TELE ASSESS & MGT SRV PROV QUAL NONPHYS HLTH CARE PRO TO EST PAT,PARENT,GUARD NOT ORIG REL ASSESS & MGT SRV PROV W/IN PREV 7 DAYS NOR LEAD ASSESS & MGT SRV/PX W/IN NXT 24 HR/SOON APT;5-10 MIN MED DIS DoD PSYCHOTHERAPY, 60 MINUTES WITH PATIENT DoD PSYCHOTHERAPY, 60 MINUTES WITH PATIENT DoD PSYCHOTHERAPY, 60 MINUTES WITH PATIENT DoD PSYCHOTHERAPY, 60 MINUTES WITH PATIENT DoD PSYCHOTHERAPY, 60 MINUTES WITH PATIENT DoD INDIVIDUAL PSYCHOTHERAPY, INSIGHT ORIENTED, BEHAVIOR MODIFYING AND/OR SUPPORTIVE, IN AN OFFICE OR OUTPATIENT FACILITY, APPROXIMATELY 45 TO 50 MINUTES GSQR-QC-XKVZ WITH THE PATIENT DoD INDIVIDUAL PSYCHOTHERAPY, INSIGHT ORIENTED, BEHAVIOR MODIFYING AND/OR SUPPORTIVE, IN AN OFFICE OR OUTPATIENT FACILITY, APPROXIMATELY 45 TO 50 MINUTES NEDH-JF-MSJZ WITH THE PATIENT DoD INDIVIDUAL PSYCHOTHERAPY, INSIGHT ORIENTED, BEHAVIOR MODIFYING AND/OR SUPPORTIVE, IN AN OFFICE OR OUTPATIENT FACILITY, APPROXIMATELY 45 TO 50 MINUTES QUDQ-VU-MFIA WITH THE PATIENT DoD INDIVIDUAL PSYCHOTHERAPY, INSIGHT ORIENTED, BEHAVIOR MODIFYING AND/OR SUPPORTIVE, IN AN OFFICE OR OUTPATIENT FACILITY, APPROXIMATELY 45 TO 50 MINUTES SWCD-GU-DPRA WITH THE PATIENT DoD INDIVIDUAL PSYCHOTHERAPY, INSIGHT ORIENTED, BEHAVIOR MODIFYING AND/OR SUPPORTIVE, IN AN OFFICE OR OUTPATIENT FACILITY, APPROXIMATELY 45 TO 50 MINUTES MRBE-YO-RRNL WITH THE PATIENT DoD INDIVIDUAL PSYCHOTHERAPY, INSIGHT ORIENTED, BEHAVIOR MODIFYING AND/OR SUPPORTIVE, IN AN OFFICE OR OUTPATIENT FACILITY, APPROXIMATELY 20 TO 30 MINUTES PYVC-RF-EPTQ WITH THE PATIENT DoD INDIVIDUAL PSYCHOTHERAPY, INSIGHT ORIENTED, BEHAVIOR MODIFYING AND/OR SUPPORTIVE, IN AN OFFICE OR OUTPATIENT FACILITY, APPROXIMATELY 45 TO 50 MINUTES QKDW-HM-SWAQ WITH THE PATIENT DoD INDIVIDUAL PSYCHOTHERAPY, INSIGHT ORIENTED, BEHAVIOR MODIFYING AND/OR SUPPORTIVE, IN AN OFFICE OR OUTPATIENT FACILITY, APPROXIMATELY 45 TO 50 MINUTES JCPN-TC-AAJS WITH THE PATIENT DoD INDIVIDUAL PSYCHOTHERAPY, INSIGHT ORIENTED, BEHAVIOR MODIFYING AND/OR SUPPORTIVE, IN AN OFFICE OR OUTPATIENT FACILITY, APPROXIMATELY 45 TO 50 MINUTES YKYW-BG-VNBW WITH THE PATIENT DoD INDIVIDUAL PSYCHOTHERAPY, INSIGHT ORIENTED, BEHAVIOR MODIFYING AND/OR SUPPORTIVE, IN AN OFFICE OR OUTPATIENT FACILITY, APPROXIMATELY 45 TO 50 MINUTES FYII-SU-OHXL WITH THE PATIENT DoD INDIVIDUAL PSYCHOTHERAPY, INSIGHT ORIENTED, BEHAVIOR MODIFYING AND/OR SUPPORTIVE, IN AN OFFICE OR OUTPATIENT FACILITY, APPROXIMATELY 45 TO 50 MINUTES NFRW-HM-RQPH WITH THE PATIENT DoD INDIVIDUAL PSYCHOTHERAPY, INSIGHT ORIENTED, BEHAVIOR MODIFYING AND/OR SUPPORTIVE, IN AN OFFICE OR OUTPATIENT FACILITY, APPROXIMATELY 45 TO 50 MINUTES BQOE-QK-EMMR WITH THE PATIENT DoD INDIVIDUAL PSYCHOTHERAPY, INSIGHT ORIENTED, BEHAVIOR MODIFYING AND/OR SUPPORTIVE, IN AN OFFICE OR OUTPATIENT FACILITY, APPROXIMATELY 45 TO 50 MINUTES YVKX-PE-BANI WITH THE PATIENT DoD INDIVIDUAL PSYCHOTHERAPY, INSIGHT ORIENTED, BEHAVIOR MODIFYING AND/OR SUPPORTIVE, IN AN OFFICE OR OUTPATIENT FACILITY, APPROXIMATELY 45 TO 50 MINUTES PGYN-RC-ILOV WITH THE PATIENT DoD INDIVIDUAL PSYCHOTHERAPY, INSIGHT ORIENTED, BEHAVIOR MODIFYING AND/OR SUPPORTIVE, IN AN OFFICE OR OUTPATIENT FACILITY, APPROXIMATELY 45 TO 50 MINUTES QEIB-EP-QMZE WITH THE PATIENT [facility] INDIVIDUAL PSYCHOTHERAPY, INSIGHT ORIENTED, BEHAVIOR MODIFYING AND/OR SUPPORTIVE, IN AN OFFICE OR OUTPATIENT FACILITY, APPROXIMATELY 45 TO 50 MINUTES FFJT-HP-EMNJ WITH THE PATIENT [facility] INDIVIDUAL PSYCHOTHERAPY, INSIGHT ORIENTED, BEHAVIOR MODIFYING AND/OR SUPPORTIVE, IN AN OFFICE OR OUTPATIENT FACILITY, APPROXIMATELY 45 TO 50 MINUTES JLBJ-CA-LRGO WITH THE PATIENT [facility] INDIVIDUAL PSYCHOTHERAPY, INSIGHT ORIENTED, BEHAVIOR MODIFYING AND/OR SUPPORTIVE, IN AN OFFICE OR OUTPATIENT FACILITY, APPROXIMATELY 45 TO 50 MINUTES TUCG-JF-BCFW WITH THE PATIENT [facility] INDIVIDUAL PSYCHOTHERAPY, INSIGHT ORIENTED, BEHAVIOR MODIFYING AND/OR SUPPORTIVE, IN AN OFFICE OR OUTPATIENT FACILITY, APPROXIMATELY 45 TO 50 MINUTES DZTE-IM-UKNL WITH THE PATIENT [facility] INDIVIDUAL PSYCHOTHERAPY, INSIGHT ORIENTED, BEHAVIOR MODIFYING AND/OR SUPPORTIVE, IN AN OFFICE OR OUTPATIENT FACILITY, APPROXIMATELY 45 TO 50 MINUTES LVQY-DR-PMPD WITH THE PATIENT [facility] INDIVIDUAL PSYCHOTHERAPY, INSIGHT ORIENTED, BEHAVIOR MODIFYING AND/OR SUPPORTIVE, IN AN OFFICE OR OUTPATIENT FACILITY, APPROXIMATELY 45 TO 50 MINUTES YAFK-QE-GRDE WITH THE PATIENT [facility] INDIVIDUAL PSYCHOTHERAPY, INSIGHT ORIENTED, BEHAVIOR MODIFYING AND/OR SUPPORTIVE, IN AN OFFICE OR OUTPATIENT FACILITY, APPROXIMATELY 45 TO 50 MINUTES [id number] WITH THE PATIENT [facility] INDIVIDUAL PSYCHOTHERAPY, INSIGHT ORIENTED, BEHAVIOR MODIFYING AND/OR SUPPORTIVE, IN AN OFFICE OR OUTPATIENT FACILITY, APPROXIMATELY 45 TO 50 MINUTES [id number] WITH THE PATIENT [facility] INDIVIDUAL PSYCHOTHERAPY, INSIGHT ORIENTED, BEHAVIOR MODIFYING AND/OR SUPPORTIVE, IN AN OFFICE OR OUTPATIENT FACILITY, APPROXIMATELY 45 TO 50 MINUTES [id number] WITH THE PATIENT [facility] INDIVIDUAL PSYCHOTHERAPY, INSIGHT ORIENTED, BEHAVIOR MODIFYING AND/OR SUPPORTIVE, IN AN OFFICE OR OUTPATIENT FACILITY, APPROXIMATELY 45 TO 50 MINUTES [id number] WITH THE PATIENT [facility] POSTOPERATIVE FOLLOW-UP VISIT, NORMALLY INCLUDED IN THE SURGICAL PACKAGE, INDICATE THAT EVALUATION & MANAGEMENT SERVICE WAS PERFORMED DURING A POSTOPERATIVE PERIOD REASON RELATED ORIGINAL PROCEDURE [facility] DEBRIDEMENT, OPEN WOUND, INCL TOP APPLICAT, WOUND ASSESSMENT, USE OF A WHIRLPOOL, WHEN PERFORMED AND INSTRUCTION(S) FOR ONGOING CARE, PER SESSION, TOTAL WOUND(S) SURFACE AREA; FIRST 20 SQ CM OR LESS [facility] POSTOPERATIVE FOLLOW-UP VISIT, NORMALLY INCLUDED IN THE SURGICAL PACKAGE, INDICATE THAT EVALUATION & MANAGEMENT SERVICE WAS PERFORMED DURING A POSTOPERATIVE PERIOD REASON RELATED ORIGINAL PROCEDURE [facility] INCISION AND DRAINAGE OF ABSCESS (EG, CARBUNCLE, SUPPURATIVE HIDRADENITIS, CUTANEOUS OR SUBCUTANEOUS ABSCESS, CYST, FURUNCLE, OR PARONYCHIA); SIMPLE OR SINGLE [facility] INDIVIDUAL PSYCHOTHERAPY, INSIGHT ORIENTED, BEHAVIOR MODIFYING AND/OR SUPPORTIVE, IN AN OFFICE OR OUTPATIENT FACILITY, APPROXIMATELY 45 TO 50 MINUTES [id number] WITH THE PATIENT [facility] INDIVIDUAL PSYCHOTHERAPY, INSIGHT ORIENTED, BEHAVIOR MODIFYING AND/OR SUPPORTIVE, IN AN OFFICE OR OUTPATIENT FACILITY, APPROXIMATELY 45 TO 50 MINUTES [id number] WITH THE PATIENT [facility] INDIVIDUAL PSYCHOTHERAPY, INSIGHT ORIENTED, BEHAVIOR MODIFYING AND/OR SUPPORTIVE, IN AN OFFICE OR OUTPATIENT FACILITY, APPROXIMATELY 45 TO 50 MINUTES [id number] WITH THE PATIENT [facility] PSYCHIATRIC DIAGNOSTIC INTERVIEW EXAMINATION [facility] SCREENING PAPANICOLAOU SMEAR; OBTAINING, PREPARING AND CONVEYANCE OF CERVICAL OR VAGINAL SMEAR TO LABORATORY [facility] TELE ASSESS & MGT SRV PROV QUAL NONPHYS HLTH CARE PRO TO EST PAT,PARENT,GUARD NOT ORIG REL ASSESS & MGT SRV PROV W/IN PREV 7 DAYS NOR LEAD ASSESS & MGT SRV/PX W/IN NXT 24 HR/SOON APT;5-10 MIN MED DIS [facility] CARDIOVASCULAR STRESS TEST USING MAXIMAL OR SUBMAXIMAL TREADMILL OR BICYCLE EXERCISE, CONTINOUS ELECTROCARDIOGRAPHIC MONITORING, PHARMACOLOGIC STRESS; INTERPRETATION AND REPORT ONLY [facility] TELE ASSESS & MGT SRV PROV QUAL NONPHYS HLTH CARE PRO TO EST PAT,PARENT,GUARD NOT ORIG REL ASSESS & MGT SRV PROV W/IN PREV 7 DAYS NOR LEAD ASSESS & MGT SRV/PX W/IN NXT 24 HR/SOON APT;5-10 MIN MED DIS [facility] INCISION AND DRAINAGE OF ABSCESS (EG, CARBUNCLE, SUPPURATIVE HIDRADENITIS, CUTANEOUS OR SUBCUTANEOUS ABSCESS, CYST, FURUNCLE, OR PARONYCHIA); SIMPLE OR SINGLE [facility] INDIVIDUAL PSYCHOTHERAPY, INSIGHT ORIENTED, BEHAVIOR MODIFYING AND/OR SUPPORTIVE, IN AN OFFICE OR OUTPATIENT FACILITY, APPROXIMATELY 45 TO 50 MINUTES [id number] WITH THE PATIENT [facility] INDIVIDUAL PSYCHOTHERAPY, INSIGHT ORIENTED, BEHAVIOR MODIFYING AND/OR SUPPORTIVE, IN AN OFFICE OR OUTPATIENT FACILITY, APPROXIMATELY 45 TO 50 MINUTES [id number] WITH THE PATIENT [facility] INDIVIDUAL PSYCHOTHERAPY, INSIGHT ORIENTED, BEHAVIOR MODIFYING AND/OR SUPPORTIVE, IN AN OFFICE OR OUTPATIENT FACILITY, APPROXIMATELY 45 TO 50 MINUTES [id number] WITH THE PATIENT [facility] INDIVIDUAL PSYCHOTHERAPY, INSIGHT ORIENTED, BEHAVIOR MODIFYING AND/OR SUPPORTIVE, IN AN OFFICE OR OUTPATIENT FACILITY, APPROXIMATELY 45 TO 50 MINUTES [id number] WITH THE PATIENT [facility] INDIVIDUAL PSYCHOTHERAPY, INSIGHT ORIENTED, BEHAVIOR MODIFYING AND/OR SUPPORTIVE, IN AN OFFICE OR OUTPATIENT FACILITY, APPROXIMATELY 45 TO 50 MINUTES [id number] WITH THE PATIENT [facility] INDIVIDUAL PSYCHOTHERAPY, INSIGHT ORIENTED, BEHAVIOR MODIFYING AND/OR SUPPORTIVE, IN AN OFFICE OR OUTPATIENT FACILITY, APPROXIMATELY 45 TO 50 MINUTES [id number] WITH THE PATIENT [facility] GROUP PSYCHOTHERAPY (OTHER THAN OF A MULTIPLE-FAMILY GROUP) [facility] INDIVIDUAL PSYCHOTHERAPY, INSIGHT ORIENTED, BEHAVIOR MODIFYING AND/OR SUPPORTIVE, IN AN OFFICE OR OUTPATIENT FACILITY, APPROXIMATELY 45 TO 50 MINUTES [id number] WITH THE PATIENT [facility] GROUP PSYCHOTHERAPY (OTHER THAN OF A MULTIPLE-FAMILY GROUP) [facility] INDIVIDUAL PSYCHOTHERAPY, INSIGHT ORIENTED, BEHAVIOR MODIFYING AND/OR SUPPORTIVE, IN AN OFFICE OR OUTPATIENT FACILITY, APPROXIMATELY 45 TO 50 MINUTES [id number] WITH THE PATIENT 008 [facility] GROUP PSYCHOTHERAPY (OTHER THAN OF A MULTIPLE-FAMILY GROUP) [facility] GROUP PSYCHOTHERAPY (OTHER THAN OF A MULTIPLE-FAMILY GROUP) [facility] INDIVIDUAL PSYCHOTHERAPY, INSIGHT ORIENTED, BEHAVIOR MODIFYING AND/OR SUPPORTIVE, IN AN OFFICE OR OUTPATIENT FACILITY, APPROXIMATELY 45 TO 50 MINUTES [id number] WITH THE PATIENT [facility] ACNE SURGERY (EG, MARSUPIALIZATION, OPENING OR REMOVAL OF MULTIPLE MILIA, COMEDONES, CYSTS, PUSTULES) [facility] PSYCHIATRIC DIAGNOSTIC INTERVIEW EXAMINATION [facility] SCREENING PAPANICOLAOU SMEAR; OBTAINING, PREPARING AND CONVEYANCE OF CERVICAL OR VAGINAL SMEAR TO LABORATORY [facility] SCREENING PAPANICOLAOU SMEAR; OBTAINING, PREPARING AND CONVEYANCE OF CERVICAL OR VAGINAL SMEAR TO LABORATORY [facility] ARTHROCENTESIS, ASPIRATION AND/OR INJECTION, SMALL JOINT OR BURSA (EG, FINGERS, TOES); WITHOUT ULTRASOUND GUIDANCE MEDICAL NUTRITION THERAPY; GROUP (2 OR MORE INDIVIDUAL(S)), EACH 30 MINUTES [facility] CARDIOVASCULAR STRESS TEST USING MAXIMAL OR SUBMAXIMAL TREADMILL OR BICYCLE EXERCISE,CONTINUOUS ELECTROCARDIOGRAPHIC MONITORING,AND/OR PHARMACOLOGICAL STRESS;W SUPERVISION,INTERPRETAT ION AND REPORT [facility] MEDICAL NUTRITION THERAPY; GROUP (2 OR MORE INDIVIDUAL(S)), EACH 30 MINUTES [facility] DESTRUCT (EG, LASER SURGERY, ELECTROSURGERY, CRYOSURGERY, CHEMOSURGERY, SURGICAL CURETTEMENT), PREMALIGNANT LESIONS (EG, ACTINIC KERATOSES); 2ND THRU 14 LESIONS, EA (LIST SEP ADDITION CD, 1ST LESION) [facility] MEDICAL NUTRITION THERAPY; GROUP (2 OR MORE INDIVIDUAL(S)), EACH 30 MINUTES [facility] ELECTROCARDIOGRAM, ROUTINE ECG WITH AT LEAST 12 LEADS; TRACING ONLY, WITHOUT INTERPRETATION AND REPORT ELECTROCARDIOGRAM, ROUTINE ECG WITH AT LEAST 12 LEADS; INTERPRETATION AND REPORT ONLY [facility] ENDOMETRIAL SAMPLING (BIOPSY) WITH OR WITHOUT ENDOCERVICAL SAMPLING (BIOPSY), WITHOUT CERVICAL DILATION, ANY METHOD (SEPARATE PROCEDURE) [facility] ELECTROCARDIOGRAM, ROUTINE ECG WITH AT LEAST 12 LEADS; TRACING ONLY, WITHOUT INTERPRETATION AND REPORT NONINVASIVE EAR OR PULSE OXIMETRY FOR OXYGEN SATURATION; SINGLE DETERMINATION [facility] ELECTROCARDIOGRAM, ROUTINE ECG WITH AT LEAST 12 LEADS; INTERPRETATION AND REPORT ONLY [facility] OTHER CARDIOVASCULAR STRESS TEST CARDIOVASCULAR STRESS TEST USING MAXIMAL OR SUBMAXIMAL TREADMILL OR BICYCLE EXERCISE,CONTINUOUS ELECTROCARDIOGRAPHIC MONITORING,AND/OR PHARMACOLOGICAL STRESS;W SUPERVISION,INTERPRETAT ION AND REPORT [facility] INFUSION, NORMAL SALINE SOLUTION, 250 CC NONINVASIVE EAR OR PULSE OXIMETRY FOR OXYGEN SATURATION; SINGLE DETERMINATION [facility] SIGMOIDOSCOPY, FLEXIBLE; DIAGNOSTIC, INCLUDING COLLECTION OF SPECIMEN(S) BY BRUSHING OR WASHING, WHEN PERFORMED (SEPARATE PROCEDURE) 002 [facility] Psychotherapy Individual Approximately 45 Minutes Psychotherapy Individual Approximately 45 Minutes [id number] JAMES CROWLEY [facility] Psychotherapy Individual Approximately 45 Minutes Psychotherapy Individual Approximately 45 Minutes [id number] JAMES CROWLEY [facility] Psychotherapy Individual Approximately 45 Minutes Psychotherapy Individual Approximately 45 Minutes [id number] JAMES CROWLEY [facility] Psychiatric Diagnostic Evaluation Comprehensive Examination Psychiatric Diagnostic Evaluation Comprehensive Examination [id number] JAMES CROWLEY [facility] Screening papanicolaou smear; obtaining, preparing and conveyance of cervical or vaginal smear to laboratory Screening papanicolaou smear; obtaining, preparing and conveyance of cervical or vaginal smear to laboratory [id number] NOLAN RUANO [facility] Non-Physician Phone Call To Patient/Provider Brief (5-10min) Non-Physician Phone Call To Patient/Provider Brief (5-10min) [id number] PUJA BUENROSTRO [facility] Non-Physician Phone Call To Patient/Provider Brief (5-10min) Non-Physician Phone Call To Patient/Provider Brief (5-10min) [id number] ZANA PEREZ [facility] Puncture Aspiration Of Cutaneous Cyst Puncture Aspiration Of Cutaneous Cyst [id number] PUJA BUENROSTRO [facility] Psychotherapy Individual Approximately 45 Minutes Psychotherapy Individual Approximately 45 Minutes [id number] [facility] Psychotherapy Individual Approximately 45 Minutes Psychotherapy Individual Approximately 45 Minutes [id number] [facility] Psychotherapy Individual Approximately 45 Minutes Psychotherapy Individual Approximately 45 Minutes [id number] 008 [facility] Psychotherapy Individual Approximately 45 Minutes Psychotherapy Individual Approximately 45 Minutes [id number] 008 [facility] [place] Psychotherapy Individual Approximately 45 Minutes Psychotherapy Individual Approximately 45 Minutes [id number] [facility] Psychotherapy Individual Approximately 45 Minutes Psychotherapy Individual Approximately 45 Minutes [id number] [facility] Psychotherapy Group Interview Psychotherapy Group Interview [id number] MARYANNE SCHERER [facility] Psychotherapy Individual Approximately 45 Minutes Psychotherapy Individual Approximately 45 Minutes [id number] [facility] Psychotherapy Group Interview Psychotherapy Group Interview [id number] GILMER MARYANNE R [facility] Psychotherapy Individual Approximately 45 Minutes Psychotherapy Individual Approximately 45 Minutes [id number] [facility] Psychotherapy Group Interview Psychotherapy Group Interview [id number] MARYANNE SCHERER [facility] Psychotherapy Group Interview Psychotherapy Group Interview [id number] MARYANNE SCHERER [facility] Psychotherapy Individual Approximately 45 Minutes Psychotherapy Individual Approximately 45 Minutes [id number] [facility] Acne Surgery Acne Surgery [id number] 007 [place] [facility] Psychiatric Diagnostic Evaluation Comprehensive Examination Psychiatric Diagnostic Evaluation Comprehensive Examination [id number] [facility] Screening papanicolaou smear; obtaining, preparing and conveyance of cervical or vaginal smear to laboratory Screening papanicolaou smear; obtaining, preparing and conveyance of cervical or vaginal smear to laboratory [id number] PRITI LINDA [facility] Screening papanicolaou smear; obtaining, preparing and conveyance of cervical or vaginal smear to laboratory Screening papanicolaou smear; obtaining, preparing and conveyance of cervical or vaginal smear to laboratory [id number] 006 PRITI LINDA [facility] Arthrocentesis Aspiration Of Small Joint Arthrocentesis Aspiration Of Small Joint [id number] VIOLETTE HUDSON [facility] Medical Nutrition Therapy Group (2 or More Individuals) Each 30 Minutes Medical Nutrition Therapy Group (2 or More Individuals) Each 30 Minutes [id number] DELROY SALINAS [facility] Medical Nutrition Therapy Group (2 or More Individuals) Each 30 Minutes Medical Nutrition Therapy Group (2 or More Individuals) Each 30 Minutes [id number] DELROY SALINAS [facility] Cardiac Stre Test With Physician Supervision, Interpretation, And Report Cardiac Stress Test With Physician Supervision, Interpretation, And Report [id number] AMAYA LEWIS [facility] Destruction Of Benign Lesion By Any Method One Lesion 006 [place] Destruct Of Benign Lesion By Any Method Second Through 14 006 [place] Medical Nutrition Therapy Group (2 or More Individuals) Each 30 Minutes Medical Nutrition Therapy Group (2 or More Individuals) Each 30 Minutes [id number] [id number] DELROY SALINAS [facility] Non-Physician Phone Call To Patient/Provider Brief (5-10min) Non-Physician Phone Call To Patient/Provider Brief (5-10min) [id number] CECI SMALL V [facility] ECG 12-Lead ECG 12-Lead [id number] CECI SMALL V [facility] Non-Physician Phone Call To Pt/Provider Intermed (11-20 min) Non-Physician Phone Call To Pt/Provider Intermed (11-20 min) [id number] MINA CRANDALL [facility] Non-Physician Phone Call To Patient/Provider Brief (5-10min) Non-Physician Phone Call To Patient/Provider Brief (5-10min) [id number] [id number] VESTA JAMISON [facility] Non-Physician Phone Call To Patient/Provider Brief (5-10min) Non-Physician Phone Call To Patient/Provider Brief (5-10min) [id number] [id number] TICO YI [facility] Psychometric Emotional / Behavioral A [facility] Psychometric Emotional / Behavioral Assessment [id number] [id number] SCAR PATEL [facility] Non-Physician Phone Call To Patient/Provider Brief (5-10min) Non-Physician Phone Call To Patient/Provider Brief (5-10min) [id number] [id number] TICO YI [facility] Non-Physician Phone Call To Patient/Provider Brief (5-10min) Non-Physician Phone Call To Patient/Provider Brief (5-10min) [id number] 017 SHASTA CARIAS [facility] Non-Physician Phone Call To Patient/Provider Brief (5-10min) Non-Physician Phone Call To Patient/Provider Brief (5-10min) [id number] [id number] YULISA ARMIJO [facility] Non-Physician Phone Call To Patient/Provider Brief (5-10min) Non-Physician Phone Call To Patient/Provider Brief (5-10min) [id number] [id number] SAWYER LOUIS [facility] Non-Physician Phone Call To Patient/Provider Brief (5-10min) Non-Physician Phone Call To Patient/Provider Brief (5-10min) [id number] 017 SAW[place]ER [place] [facility] Non-Physician Phone Call To Patient/Provider Brief (5-10min) Non-Physician Phone Call To Patient/Provider Brief (5-10min) [id number] 017 VESTA JAMISON [facility] Non-Physician Phone Call To Patient/Provider Brief (5-10min) Non-Physician Phone Call To Patient/Provider Brief (5-10min) [id number] [id number] VESTA JAMISON [facility] Psychometric Emotional / Behavioral A e [facility] Psychometric Emotional / Behavioral Assessment [id number] 016 KENYA BROWN [facility] Non-Physician Phone Call To Patient/Provider Brief (5-10min) Non-Physician Phone Call To Patient/Provider Brief (5-10min) [id number] 016 SAWYER LOUIS [facility] Non-Physician Phone Call To Patient/Provider Brief (5-10min) Non-Physician Phone Call To Patient/Provider Brief (5-10min) [id number] 016 TICO YI [facility] Non-Physician Phone Call To Patient/Provider Brief (5-10min) Non-Physician Phone Call To Patient/Provider Brief (5-10min) [id number] 016 SAWYER LOUIS [facility] Biopsy Endometrial Biopsy Endometrial [id number] 016 SHERIF FRAUSTO [facility] Non-Physician Phone Call To Patient/Provider Brief (5-10min) Non-Physician Phone Call To Patient/Provider Brief (5-10min) [id number] 016 NAINA NASH [facility] Non-Physician Phone Call To Patient/Provider Brief (5-10min) Non-Physician Phone Call To Patient/Provider Brief (5-10min) [id number] 016 NAINA NASH [facility] Non-Physician Phone Call To Patient/Provider Brief (5-10min) Non-Physician Phone Call To Patient/Provider Brief (5-10min) [id number] 016 SAWYER LOUIS [facility] Non-Physician Phone Call To Patient/Provider Brief (5-10min) Non-Physician Phone Call To Patient/Provider Brief (5-10min) [id number] [id number] DAWNA ROBERT [facility] Non-Physician Phone Call To Patient/Provider Brief (5-10min) Non-Physician Phone Call To Patient/Provider Brief (5-10min) [id number] 016 DAWNA ROBERT [facility] Non-Physician Phone Call To Patient/Provider Brief (5-10min) Non-Physician Phone Call To Patient/Provider Brief (5-10min) [id number] 016 VESTA JAMISON [facility] Non-Physician Phone Call To Patient/Provider Brief (5-10min) Non-Physician Phone Call To Patient/Provider Brief (5-10min) [id number] 016 HAO BORJA [facility] Non-Physician Phone Call To Patient/Provider Brief (5-10min) Non-Physician Phone Call To Patient/Provider Brief (5-10min) [id number] 015 CECI SMALL V [facility] Psychiatric Diagnostic Evaluation Review of Records and Reports Psychiatric Diagnostic Evaluation Review of Records and Reports [id number] 015 JAMES CROWLEY [facility] Clinical Social Work Individual Outpatient Counseling 45 Minutes 015 JAMES CROWLEY [facility] Clinical Social Work Individual Outpatient Counseling 45 Minutes 015 JAMES CROWLEY [facility] Clinical Social Work Individual Outpatient Counseling 45 Minutes 015 JAMES CROWLEY [facility] Clinical Social Work Individual Outpatient Counseling 45 Minutes 015 JAMES CROWLEY [facility] Clinical Social Work Individual Outpatient Counseling 45 Minutes 015 JAMES CROWLEY [facility] Non-Physician Phone Call To Patient/Provider Brief (5-10min) Non-Physician Phone Call To Patient/Provider Brief (5-10min) [id number] 015 VESTA JAMISON [facility] Clinical Social Work Individual Outpatient Counseling 45 Minutes 015 JAMES CROWLEY [facility] Clinical Social Work Individual Outpatient Counseling 45 Minutes 015 JAMES CROWLEY [facility] Non-Physician Phone Call To Patient/Provider Brief (5-10min) Non-Physician Phone Call To Patient/Provider Brief (5-10min) [id number] 015 VESTA JAMISON [facility] Non-Physician Phone Call To Patient/Provider Brief (5-10min) Non-Physician Phone Call To Patient/Provider Brief (5-10min) [id number] 015 TIFFANIE BADILLO Cervical or vaginal cancer screening; pelvic and clinical breast examination Cervical or vaginal cancer screening; pelvic and clinical breast examination [id number] ELSIE BRIGHT [facility] Clinical Social Work Individual Outpatient Counseling 45 Minutes 015 JAMES CROWLEY [facility] Clinical Social Work Individual Outpatient Counseling 45 Minutes 015 JAMES CROWLEY [facility] Clinical Social Work Individual Outpatient Counseling 45 Minutes 014 JAMES CROWLEY [facility] Clinical Social Work Individual Outpatient Counseling 45 Minutes 014 JAMES CROWLEY [facility] Clinical Social Work Individual Outpatient Counseling 45 Minutes 014 JAMES CROWLEY [facility] Clinical Social Work Individual Outpatient Counseling 45 Minutes 014 JAMES CROWLEY [facility] Clinical Social Work Individual Outpatient Counseling 45 Minutes 014 JAMES CROWLEY [facility] Clinical Social Work Individual Outpatient Counseling 45 Minutes 014 JAMES CROWLEY [facility] Clinical Social Work Individual Outpatient Counseling 45 Minutes 014 JAMES CROWLEY [facility] Non-Physician Phone Call To Patient/Provider Brief (5-10min) Non-Physician Phone Call To Patient/Provider Brief (5-10min) [id number] [id number] TIFFANIE BADILLO [facility] Non-Physician Phone Call To Patient/Provider Brief (5-10min) Non-Physician Phone Call To Patient/Provider Brief (5-10min) [id number] 014 TIFFANIE BADILLO [facility] Clinical Social Work Individual Outpatient Counseling 45 Minutes 014 JAMES CROWLEY [facility] Clinical Social Work Individual Outpatient Counseling 45 Minutes 014 JAMES CROWLEY Non-Physician Phone Call To Patient/Provider Brief (5-10min) Non-Physician Phone Call To Patient/Provider Brief (5-10min) [id number] 014 TIFFANIE BADILLO Non-Physician Phone Call To Patient/Provider Brief (5-10min) Non-Physician Phone Call To Patient/Provider Brief (5-10min) [id number] 014 TIFFANIE BADILLO [facility] Clinical Social Work Individual Outpatient Counseling 45 Minutes 014 JAMES CROWLEY [facility] Clinical Social Work Individual Outpatient Counseling 45 Minutes 014 JAMES CROWLEY Non-Physician Phone Call To Patient/Provider Brief (5-10min) Non-Physician Phone Call To Patient/Provider Brief (5-10min) [id number] 014 HAO BORJA [facility] Psychotherapy Individual Approximately 60 Minutes 014 JAMES CROWLEY Cervical or vaginal cancer screening; pelvic and clinical breast examination Cervical or vaginal cancer screening; pelvic and clinical breast examination [id number] ELSIE BRIGHT [facility] Psychotherapy Individual Approximately 60 Minutes 013 JAMES CROWLEY [facility] Psychotherapy Individual Approximately 60 Minutes 013 JAMES CROWLEY Non-Physician Phone Call To Patient/Provider Brief (5-10min) Non-Physician Phone Call To Patient/Provider Brief (5-10min) [id number] [phone] TIFFANIE BADILLO [facility] Psychotherapy Individual Approximately 60 Minutes 013 VICKY CROWLEYA [place] [facility] Psychotherapy Individual Approximately 60 Minutes 013 JAMES CROWLEY Non-Physician Phone Call To Patient/Provider Brief (5-10min) Non-Physician Phone Call To Patient/Provider Brief (5-10min) [id number] [phone] TIFFANIE BADILLO [facility] Psychotherapy Individual Approximately 60 Minutes 013 VICKY CROWLEYA [place] [facility] Psychotherapy Individual Approximately 60 Minutes 013 VICKY CROWLEYA [place] [facility] Psychotherapy Individual Approximately 60 Minutes 013 VICKY CROWLEYA [place] [facility] Psychotherapy Individual Approximately 60 Minutes 013 VICKY CROWLEYA [place] [facility] Psychotherapy Individual Approximately 60 Minutes 013 VICKY CROWLEYA [place] [facility] Psychotherapy Individual Approximately 45 Minutes Psychotherapy Individual Approximately 45 Minutes [id number] 013 VICKY CROWLEYA [facility] Psychotherapy Individual Approximately 45 Minutes Psychotherapy Individual Approximately 45 Minutes [id number] 013 CARLINEVICKY SANTAMARIAA [facility] Psychotherapy Individual Approximately 45 Minutes Psychotherapy Individual Approximately 45 Minutes 26857 013 VICKY CROWLEYA [facility] Psychotherapy Individual Approximately 45 Minutes Psychotherapy Individual Approximately 45 Minutes [id number] 012 VICKY CROWLEYA [place] [facility] Psychotherapy Individual Approximately 45 Minutes Psychotherapy Individual Approximately 45 Minutes [id number] 012 CARLINEVICKYA K [facility] Psychotherapy Individual Approximately 30 Minutes Psychotherapy Individual Approximately 30 Minutes [id number] [id number] CARLINE, JAMES K [facility] Psychotherapy Individual Approximately 45 Minutes Psychotherapy Individual Approximately 45 Minutes [id number] [id number] CARLINE, JAMES [facility] Psychotherapy Individual Approximately 45 Minutes Psychotherapy Individual Approximately 45 Minutes [id number] [id number] CARLINEVICKYA K [facility] Psychotherapy Individual Approximately 45 Minutes Psychotherapy Individual Approximately 45 Minutes [id number] [id number] CARLINE, JAMES K [facility] Psychotherapy Individual Approximately 45 Minutes Psychotherapy Individual Approximately 45 Minutes [id number] [id number] CARLINE, JAMES K [facility] Psychotherapy Individual Approximately 45 Minutes Psychotherapy Individual Approximately 45 Minutes [id number] [id number] CARLINE, JAMES K [facility] Psychotherapy Individual Approximately 45 Minutes Psychotherapy Individual Approximately 45 Minutes [id number] [id number] CARLINEVICKYA K [facility] Psychotherapy Individual Approximately 45 Minutes Psychotherapy Individual Approximately 45 Minutes [id number] 012 CARLINEVICKYA K [facility] Psychotherapy Individual Approximately 45 Minutes Psychotherapy Individual Approximately 45 Minutes [id number] [id number] CARLINEVICKYA K [facility] Psychotherapy Individual Approximately 45 Minutes Psychotherapy Individual Approximately 45 Minutes [id number] 012 CARLINEVICKYA K [facility] Psychotherapy Individual Approximately 45 Minutes Psychotherapy Individual Approximately 45 Minutes [id number] [id number] CARLINEVICKYA K [facility] Psychotherapy Individual Approximately 45 Minutes Psychotherapy Individual Approximately 45 Minutes [id number] 012 CARLINEVICKYA K [facility] Psychotherapy Individual Approximately 45 Minutes Psychotherapy Individual Approximately 45 Minutes [id number] CARLINEVICKYA K [facility] Psychotherapy Individual Approximately 45 Minutes Psychotherapy Individual Approximately 45 Minutes [id number] CARLINEVICKYA K [facility] Psychotherapy Individual Approximately 45 Minutes Psychotherapy Individual Approximately 45 Minutes [id number] CARLINE, JAMES K [facility] Psychotherapy Individual Approximately 45 Minutes Psychotherapy Individual Approximately 45 Minutes [id number] CARLINE, JAMES K [facility] Psychotherapy Individual Approximately 45 Minutes Psychotherapy Individual Approximately 45 Minutes [id number] CARLINE, JAMES K [facility] Psychotherapy Individual Approximately 45 Minutes Psychotherapy Individual Approximately 45 Minutes [id number] CARLINE, JAMES K [facility] Psychotherapy Individual Approximately 45 Minutes Psychotherapy Individual Approximately 45 Minutes [id number] CARLINE, JAMES [facility] Psychotherapy Individual Approximately 45 Minutes Psychotherapy Individual Approximately 45 Minutes [id number] JAMES CROWLEY [facility] Postoperative Visit, Without Charge Postoperative Visit, Without Charge [id number] FRANKLIN ESPINAL [facility] Biopsy Skin Biopsy Skin [id number] COLE HOLCOMB [facility] Skin Debridement Partial Thickne 012 COLE HOLCOMB Destruction Of Premalignant Lesion By Any Method One Lesion 012 COLE HOLCOMB [facility] Wound Care Debridement Non-Selective 012 MAUDE CEDEÑO [facility] Social History Combined list of available smoking, tobacco, and other social history from [facility] facilities. Social History Type Response Date Comment Sourc e Sex Representation Female (finding) 10/09/2022 Unknown Organization Sexual Orientation [facility] Gender identity [facility] This section is an empty social history section. DoD Assessment and Plan Combined list of future care activities from [facility] facilities (e.g., assessment and plan notes, appointments, orders, and referrals). Additional future care activities may be listed in the Plan of Care section. Result Assessment and Plan Date Source Assessment and Plan No data available for this section 08/10/2025 [facility] Functional Status Combined list of recent functional and cognitive assessments recorded at [facility] Functional Bonnie Measurement (FIM) Scale: 1 = Total Assistance (Subject = 0% +), 2 = Maximal Assistance (Subject = 25% +), 3 = Moderate Assistance (Subject = 50% +), 4 = Minimal Assistance (Subject = 75% +), 5 = Supervision, 6 = Modified Bonnie (Device), 7 = Complete Bonnie (Timely, Safely). Assessment Date/Time Source Assessment Type Assessment Skill Assessment Score Assessment Details No data available for this section
--- OUTSIDE RECORDS SUMMARY | 2025-08-09 19:15 | XMS_ITS | Data Portability ---
Author Organization [place] [facility], Main Office Address [address] [place] [address] Care Team Providers Care Business Rules Developer Name Role Phone TODD JACOB Primary Care Provider TODD JACOB Referring Provider [phone] Assessment Encounter Date Assessment Date Assessment LastModified by Organization Details LastModified Time 04/01/2023 04/01/2023 67-year-old female presents for her bilateral knees. She has a history of arthritis which has been longstanding and which she has been managing. However, she fell through her deck back in December, and her symptoms have gotten worse. She has catching and locking as well as pain and swelling in the knee. She has been seeing a physical therapist, who evaluated her and was concerned for meniscal issues. She is also taking meloxicam. She has not had any other treatments, however she reports she had a cortisone injection several years ago, which she said did not work. Review of systems per patient questionnaire Physical exam: BMI 44.7. She is nonantalgic gait. She has tenderness palpation over the medial knees on both sides. Range of motion 0-120, with crepitus. Neurovascular intact bilaterally. Stable ligament exam. X-rays of the bilateral knees were reviewed, demonstrating degenerative changes of medial compartment bilaterally, with joint space narrowing and osteophyte formation. She has bilateral knee arthritis. She has already been taking anti-inflammatori es and doing physical therapy, and modifying her activity. We offered her a cortisone injection, she elected to proceed with bilateral injections. She also wants to continue physical therapy and we renewed her PT order. Will have her follow-up in 3 months or sooner as needed. [email or web address] Not available 04/01/2023 23:37:49 07/01/2023 07/01/2023 68-year-old patient presents today with bilateral knee osteoarthritis that has been painful for her for a long time. At her last appointment we renewed physical therapy and provided bilateral cortisone injections. She has had these injections worked for a little bit but the pain has returned. She has pain with daily activities like walking and using stairs. She is interested in trying gel injections at this time. Physical exam: BMI 44.9. She is nonantalgic gait. She has tenderness palpation over the medial knees on both sides. Range of motion 0-130, with crepitus. Neurovascular intact bilaterally. Stable ligament exam. Today we discussed the risks and benefits of gel injection into bilateral knees. She agreed to proceed with the injections today. We will also renew her order for physical therapy. We will see her back next week for his next gel injection. Not available 07/01/2023 15:43:56 07/08/2023 07/08/2023 68-year-old patient presents today with bilateral knee osteoarthritis that has been painful for her for a long time. She is currently getting gel injections in bilateral knees, today will be her 2nd of 3. Today we discussed the risks and benefits of gel injection into bilateral knees. She agreed to proceed with the injections today. We will see her back next week for his next gel injection. Not available 07/08/2023 12:29:32 07/15/2023 07/15/2023 68-year-old patient presents today with bilateral knee osteoarthritis that has been painful for her for a long time. She is currently getting gel injections in bilateral knees, today will be her 3rd of 3. Today we discussed the risks and benefits of gel injection into bilateral knees. She agreed to proceed with the injections today. We will see her back as needed for pain in the future. She is in agreement with this plan. Not available 07/15/2023 15:03:23 Plan of Treatment Reminders Order Date Submit Date Provider Last Modified By Organization Details Last Modified Time Details Appointments None recorded. Lab None recorded. Referral physical therapist referral - CONTINUE PT 2022 023 [email or web address] [facility], [address] [place] [address] , [place], [address], 3 09:09:11 physical therapist referral - continuatio n of therapy Margarito knee 2022 023 [facility], [address], [place], [address], 3 11:14:47 Procedures knee aspiration/ injection (PROC) 2022 023 [email or web address] In-Office Order, Internal Use Only DO Not Attach Compendium DO Not Attach Compendium, Do Not Delete/merge, 3 23:05:12 knee aspiration/ injection (PROC) 2022 023 [email or web address] In-Office Order, Internal Use Only DO Not Attach Compendium DO Not Attach Compendium, Do Not Delete/merge, 3 11:58:11 knee aspiration/ injection (PROC) 2022 023 [email or web address] In-Office Order, Internal Use Only DO Not Attach Compendium DO Not Attach Compendium, Do Not Delete/merge, 3 14:17:46 injection/a spiration joint/bursa (PROC) - in office procedure, administere d by provider 2022 023 [email or web address] In-Office Order, Internal Use Only DO Not Attach Compendium DO Not Attach Compendium, Do Not Delete/merge, 3 15:32:25 Surgeries None recorded. Imaging XR, knee 2022 023 [email or web address] [facility] [place], [address], [place], [address], 3 09:05:56 Medication Orders ORTHOVISC 30 mg/2 mL intra-artic ular syringe 2022 023 [email or web address] Not available 3 14:33:20 ORTHOVISC 30 mg/2 mL intra-artic ular syringe 2022 023 [email or web address] [facility], [address] [place] [address], [address], 3 12:49:27 ORTHOVISC 30 mg/2 mL intra-artic ular syringe 2022 023 [email or web address] [facility], [address] [place] [address], [address], 3 14:24:50 Kenalog 10 mg/mL suspension for injection [address], [address] [place] [address], [address], 3 10:58:34 ropivacaine (PF) 5 mg/mL (0.5 %) injection solution [address], [address] [place] [address], [address], 3 10:58:28 Patient TargetsNo targets recorded. Patient InstructionsNo instructions recorded. Reason for Referral Physical Therapist Referral for Pain of bilateral knee joints Margarito knee continuation of therapy Margarito knee Referring Physician: Edison Elaine, Orthopedic Surgery, Encounter Date: 04/01/2023 Physical Therapist Referral for Bilateral osteoarthritis of knees CONTINUE PT Referring Physician: Anastasiia Dillard, Orthopedic Surgery, Encounter Date: 07/01/2023 Results Created Date Observation Date Name Description Value Unit Range Abnormal Flag Note LastModifiedBy Organization Detail LastModifiedTime 04/01/20 23 XR, knee No observ ation record ed. [email or web address] [facility] [place] [address], [place], [address], 04/01/2023 14:46:28 Result Notes None recorded. Problems Name Problem SNOMED Code Status Onset Date Resolution Date Notes Provider Name and Address Organization Details Recorded Time Enthesopat hy of hip region 45899332 Active Not Available [facility] 3 15:41:18 Knee pain Active Not Available [facility] 3 15:41:18 Osteoarthr itis 776224616 Active Not Available [facility] 3 15:41:18 Heartburn 14653876 Active 2017 Not Available [facility] 3 15:41:17 Pneumonia 173805094 Active 2017 Not Available [facility] 3 15:41:17 Bronchitis 31744986 Active 2017 Not Available [facility] 3 15:41:18 Dizziness 947665495 Active 2017 Not Available [facility] 3 15:41:18 Obesity 206026306 Active 2017 Not Available [facility] 3 15:41:18 Hyperchole sterolemia 44938601 Active 2017 Not Available [facility] 3 15:41:17 Gastroesop hageal reflux disease 287402746 Active 2017 Not Available [facility] 3 15:41:18 Depressive disorder 34236278 Active 2017 Not Available [facility] 3 15:41:18 Multiple malignancy 797567690 Active 2017 Not Available [facility] 3 15:41:18 Arthritis 1705157 Active 2017 Not Available [facility] 3 15:41:18 Hypertensi ve disorder 94265935 Active 2017 Not Available [facility] 3 15:41:18 Anxiety 98273752 Active 2017 Not Available [facility] 3 15:41:18 Pain of bilateral knee joints 5156165838417 04 Active 2022 L[place] [facility] 3 14:46:18 Bilateral osteoarthr itis of knees 8004724677792 07 Active 2022 L[place] [facility] 3 14:16:46 Notes:allergies, uterine can cer, pre- diabetic, high cholesterol, Problem Notes None recorded. Procedures Surgical History Date Name Laterality Status Provider Name and Address Organization Details Recorded Time 07/15/20 23 Euflexxa Injection completed Anastasiia Juilfs, REGISTERED RADIOLOGIC TECHNOLOGIST [address], [place], [address], [facility] [employer] [facility] [employer] [facility] 07/15/2023 15:04:05 07/08/20 23 Euflexxa Injection completed Anastasiiaangel Castroilfs, REGISTERED RADIOLOGIC TECHNOLOGIST [address], [place], [address], [facility] [employer] [facility] [employer] [facility] 07/08/2023 12:30:04 07/01/20 23 Euflexxa Injection completed Anastasiiaangel Dillard, REGISTERED RADIOLOGIC TECHNOLOGIST [address], [place], [address], [facility] [employer] [facility] [employer] 07/01/2023 15:44:59 04/01/20 23 Ortho - Cortisone Injection completed Edison Elaine MD [address], [place], [address], [employer] [facility] 04/01/2023 23:37:59 04/17/20 17 Hysterectomy completed Muriel De Luna CNA [employer] [facility] [employer] [facility] 04/01/2023 14:48:01 Imaging Results None recorded. Procedure Notes None recorded. Medical Equipment None Reported. Allergies Allergen ID Allergen Name Allergen Category Reaction Reaction Severity Criticality Documentation Date Start Date Code Code System Note Provider Name and Address Organization Details Recorded Time 11036 Substance with sulfonami de structure and antibacte rial mechanism of action (substanc e) medicatio n irregular heart rate Not available Not available 10/15/2022 42453 8003 SNOMED Not Available [facility] 3 15:42:27 Medications Name Sig Start Date Stop Date Status Note LastModified by Organization Details LastModified Time penicillin V potassium 250 mg tablet 06/30 completed Not Available Not Available Not Available cyclobenzap rine 10 mg tablet Take 1 tablet 3 times a day by oral route as needed. active Not Available Not Available No t Available amoxicillin 500 mg capsule 07/17 completed Not Available Not Available Not Available furosemide 40 mg tablet 04/01 completed Not Available Not Available Not Available medroxyprog esterone 10 mg tablet 06/30 completed Not Available Not Available Not Available prednisone 10 mg tablet 06/30 completed Not Available Not Available Not Available venlafaxine ER 75 mg capsule,ext ended release 24 hr Take 1 capsule every day by oral route. active Not Available Not Available No t Available doxycycline hyclate 100 mg capsule TAKE 1 CAPSULE BY MOUTH TWICE DAILY FOR 14 DAYS WITH FOOD AND FULL GLASS OF WATER. active Not Available Not Available No t Available triazolam 0.25 mg tablet 06/30 completed Not Available Not Available Not Available cetirizine 10 mg tablet Take 1 tablet every day by oral route. active Not Available Not Available No t Available azithromyci n 250 mg tablet 06/30 completed Not Available Not Available Not Available benzonatate 200 mg capsule 06/30 completed Not Available Not Available Not Available valacyclovi r 1 gram tablet Take 1 tablet every day by oral route. active Not Available Not Available No t Available hydrocodone 5 mg-acetamin ophen 325 mg tablet 06/30 completed Not Available Not Available Not Available Nystop 100,000 unit/gram topical powder APPLY TO THE AFFECTED AREA(S) BY TOPICAL ROUTE 2 TIMES PER DAY 09/16 completed Not Available Not Available Not Available meloxicam 15 mg tablet TAKE 1 TABLET BY MOUTH ONCE DAILY WITH FOOD active Not Available Not Available No t Available prednisone 20 mg tablet TAKE 2 TABLETS BY MOUTH ONCE DAILY WITH FOOD FOR 5 DAYS 04/01 completed Not Available Not Available Not Available medroxyprog esterone 5 mg tablet 06/30 completed Not Available Not Available Not Available Atrovent 42 mcg (0.06 %) nasal spray 06/30 completed Not Available Not Available Not Available acetaminoph en 300 mg-codeine 30 mg tablet TAKE 1 TABLET BY MOUTH EVERY 6 HOURS NEEDED 04/01 completed Not Available Not Available Not Available aspirin 81 mg tablet,aide yed release Take 1 tablet every day by oral route. active Not Available Not Available No t Available tramadol 50 mg tablet 02/02 completed Not Available Not Available Not Available simvastatin 40 mg tablet Take 1 tablet every day by oral route. active Not Available Not Available No t Available pantoprazol e 20 mg tablet,aide yed release Take 2 tablets every day by oral route. 09/16 completed Not Available Not Available Not Available Nexium 20 mg capsule,del ayed release 06/30 completed Not Available Not Available Not Available Sea Soft Nasal Mist 0.65 % spray aerosol 06/30 completed Not Available Not Available Not Available meloxicam 7.5 mg tablet 06/30 completed Not Available Not Available Not Available amoxicillin 875 mg tablet TAKE 1 TABLET BY MOUTH EVERY 12 HOURS FOR 10 DAYS 07/17 completed Not Available Not Available Not Available Kenalog 10 mg/mL suspension for injection Take 2 mL by injection route. 06/24 completed [facility]: 0003- 0494- 20 Not Available Not Available Not Available benzonatate 100 mg capsule TAKE 1 CAPSULE BY MOUTH EVERY 8 HOURS NEEDED 04/01 completed Not Available Not Available Not Available cephalexin 500 mg capsule TAKE 1 CAPSULE BY MOUTH 4 TIMES DAILY FOR 10 DAYS 07/11 completed Not Available Not Available Not Available pantoprazol e 40 mg tablet,aide yed release active Not Available Not Available Not Available simvastatin 20 mg tablet 06/30 completed Not Available Not Available Not Available telmisartan 40 mg tablet Take 1 tablet every day by oral route. active Not Available Not Available No t Available clotrimazol e-betametha sone 1 %-0.05 % topical cream 06/30 completed Not Available Not Available Not Available lidocaine 5 % topical patch 06/30 completed Not Available Not Available Not Available ibuprofen 400 mg tablet 06/30 completed Not Available Not Available Not Available Effexor 75 mg tablet Take 1 tablet every day by oral route. 09/16 completed Not Available Not Available Not Available gabapentin 300 mg capsule 06/30 completed Not Available Not Available Not Available montelukast 10 mg tablet 06/30 completed Not Available Not Available Not Available ibuprofen 600 mg tablet 06/30 completed Not Available Not Available Not Available levofloxaci n 750 mg tablet 06/30 completed Not Available Not Available Not Available methylpredn isolone 4 mg tablets in a dose pack 07/11 completed Not Available Not Available Not Available lisinopril 40 mg tablet 06/30 completed Not Available Not Available Not Available fluticasone propionate 50 mcg/actuati on nasal spray,suspe nsion 2 sprays each NS daily active Not Available Not Available No t Available amoxicillin 875 mg-potassiu m clavulanate 125 mg tablet TAKE 1 TABLET BY MOUTH TWICE DAILY FOR 10 DAYS 04/01 completed Not Available Not Available Not Available oxycodone 5 mg tablet 06/30 completed Not Available Not Available Not Available Low Dose Aspirin 81 mg tablet,aide yed release Take 1 tablet every day by oral route. 09/16 completed Not Available Not Available Not Available cyclosporin e 0.05 % eye drops in a dropperette INSTILL 1 DROP INTO AFFECTED EYE(S) BY OPHTHALMI C ROUTE EVERY 12 HOURS active Not Available Not Available No t Available ORTHOVISC 30 mg/2 mL intra-artic ular syringe Inject 2 mL every week by intra-art icular route. 2022 active Not Available Not Available Not Avai lable chlorhexidi ne gluconate 0.12 % mouthwash 06/30 completed Not Available Not Available Not Available Vitamin C active Not Available Not Anny ilable Not Available calcium active Not Available Not Avail able Not Available Vitamin D active Not Available Not Anny ilable Not Available Flexeril 07/17 completed Not Available Not Available Not Available multivitami n active Not Available Not Available Not Available Calcium Citrate + D 09/16 completed Not Available Not Available Not Available ProAir HFA 90 mcg/actuati on aerosol inhaler 06/30 completed Not Available Not Available Not Available Systane Contacts eye drops 09/16 completed Not Available Not Available Not Available Zyrtec 10 mg capsule Take by oral route. active Not Available Not Available No t Available Aerochamber Plus Flow-Vu 06/30 completed Not Available Not Available Not Available ropivacaine (PF) 5 mg/mL (0.5 %) injection solution Take 8 mL by injection route. 06/24 completed [facility] [phone] Not Available Not Available Not Available Virtussin AC 10 mg-100 mg/5 mL oral liquid 06/30 completed Not Available Not Available Not Available BinaxNOW COVID-19 Ag Self Test kit TEST DIRECTED TODAY 04/01 completed Not Available Not Available Not Available Vitals Date Recorded Body height Body mass index (BMI) Body weight Provider Name and Address Organization Details Last Updated DateTime 04/01/2023 167.64 cm 44.7 kg/m2 791101.09 g Muriel De Luna [facility] [employer] [facility] 04/01/2023 14:41:17 Date Recorded Body height Body mass index (BMI) Body weight Provider Name and Address Organization Details Last Updated DateTime 07/01/2023 167.64 cm 44.9 kg/m2 008903.68 g Muriel De Luna [facility] [employer] [facility] 07/01/2023 13:58:24 Date Recorded Body height Body mass index (BMI) Body weight Provider Name and Address Organization Details Last Updated DateTime 07/08/2023 167.64 cm 44.5 kg/m2 022288.49 g Muriel De Luna [facility] [employer] [facility] [employer] [facility] 07/08/2023 11:53:32 Date Recorded Body height Body mass index (BMI) Body weight Provider Name and Address Organization Details Last Updated DateTime 07/15/2023 167.64 cm 44.9 kg/m2 185476.68 [facility] [employer] [facility] 07/15/2023 14:45:54 Social History None recorded. Functional Status Question Answer Note LastModified by Organization D etails LastModified Time What is your level of alcohol consumption? None [email or web address] Information not available 04/01/2023 Mental Status None recorded. Family History Relationship Description Onset Age of this Age Resolved Age Notes LastModified by Organization Details LastModified Time Maternal Grandfather Family history of malignant neoplasm [email or web address] Not available 2022 14:46:59 Mother Family history of malignant neoplasm [email or web address] Not available 2022 14:46:59 Mother Hypertensive disorder [email or web address] Not available 2022 14:47:10 Father Hypertensive disorder [email or web address] Not available 2022 14:47:10 Father Blood coagulation disorder [email or web address] Not available 2022 14:47:22 Father Diabetes mellitus [email or web address] Not available 2022 14:47:34 Notes:cancer - mother, uncle , grandfather blood clots - father Medical History Condition Response SKIN PROBLEMS Y ARTHRITIS Y CANCER: SPECIFY Y URINARY/BLADDER/KIDNEY PROBLEMS Y USE OF BLOOD THINNERS Y HEART ARRHYTHMIA Y HYPERTENSION Y Gynecological HistoryNo gynecological history recorded. Obstetrics History GPAL:G 0 P 0 0 0 0 Immunizations Vaccine Type Date Status Note Provider Nam e and Address Organization Details Recorded Time Influenza, high-dose, trivalent, PF 9 completed Not Available [facility] 10/15/2022 15:42:25 Pneumococcal conjugate PCV 13 9 completed Not Available [facility] 10/15/2022 15:42:26 Past Encounters Encounter ID Performer Location Encounter Start Date Encounter Closed Date Diagnosis/Indication Diagnosis SNOMED-CT Code Diagnosis ICD10 Code Diagnosis IMO Codes Diagnosis Note [id number] Edison Elaine MD [facility] [place] [address] [place] [address] 04/01/2023 14:11:17 04/01/2023 15:36:10 Pain of bilateral knee joints 0309362835 26933 M25.561 M25.186 [id number] Edison Elaine MD [facility] [place] [address] [place] [address] 07/01/2023 13:55:20 07/01/2023 14:45:39 Pain of bilateral knee joints 8308793469 12517 M25.561 M25.562 Bilateral osteoarthritis of knees 6787665794 22505 M17.0 [id number] Edison Elaine MD [facility] [place] [address] [place] [address] 07/08/2023 11:42:14 07/08/2023 12:22:06 Bilateral osteoarthritis of knees 4158976097 40256 M17.0 [id number] Edison Elaine MD [facility] [place] [address] [place] [address] 07/15/2023 14:42:52 07/15/2023 15:01:38 Pain of bilateral knee joints 9530186961 40841 M25.561 M25.562 Health Concerns Section Related Observation LastModified by Organization Detai ls LastModified Time None Recorded Concern Status LastModified by Organization Details LastModified Time None Recorded Advance Directives Directive None Recorded Payers Insurance Date Sequence Insurance Name Policy Number Policy Alvarez Covered Member ID Alvarez Member ID Guarantor Name 01/04/2025 [facility] Krystin Yanez APVannesaU [employer]U Krystin Yanez 01/04/2025 3 FOR LIFE ( - MEDICARE SUPPLEMENT) Krystin Yanez [id number] Krystin Yanez 01/04/2025 1 [place] Krystin Yanez [id number] Krystin Yanez 06/02/2025 2 [employer] - APWU - FEE FOR SERVICE (PPO) [id number] Naif Yanez [id number] Krystin Yanez OBGyn Episode No OBEpisode recorded.
--- OUTSIDE RECORDS SUMMARY | 2025-08-09 19:15 | XMS_ITS | Clinical Summary ---
Author Organization [facility] Address [address] [place] [address] Care Team Providers Care Dye Feeder Name Role Phone Sergio Zacarias MD Unavailable [phone] Source Comments [facility],non-owned Affiliates and Associated Physician Practices is amultiple site organization consisting of ambulatory clinics and hospital sitesin [place], [place], [place] and [place]. This disclosure is being madepursuant to the Care Everywhere program and may not contain all information available regarding this patient. Last updated [employer] Allergies Active Allergy Reactions Criticality Noted Date Comments Sulfa Drugs Palpitations High 08/26/2010 Sulfamethoxazole W-Trimethoprim Unknown 05/17 Medications * Be aware that medications may not be up to date on this document. Alwaysverify current medications with the patient. calcium citrate-vitamin D (CALCIUM CITRATE-VITAMIN D) 250-200 MG-UNIT tablet Calcium Citrate + D Active Calcium Carbonate-Vitamin D (CALCIUM-CARB 600 + D) 600-125 MG-UNIT daily. Active cephalexin (KEFLEX) 500 MG capsule 019 Active cetirizine (HM CETIRIZINE HCL) 10 MG tablet every 24 hours 017 Active Cyclobenzaprine HCl (FLEXERIL PO) Flexeril Ac tive methylPREDNISolon e (MEDROL) 4 MG tablet methylprednisolone 4 mg tablets in a dose pack Active Multiple Vitamin Take 1 tablet by mouth 017 Active polyethyl glycol-propyl glycol (SYSTANE) 0.4-0.3 % ophth solution Systane Contacts eye drops Active pantoprazole EC (PROTONIX) 20 MG tablet pantoprazole 20 mg tablet,delayed release Active simvastatin (ZOCOR) 40 MG tablet simvastatin 40 mg tablet Active valACYclovir (VALTREX) 1 GM tablet valacyclovir 1 gram tablet Active amoxicillin (AMOXIL) 875 MG tablet amoxicillin 875 mg tablet TAKE 1 TABLET BY MOUTH EVERY 12 HOURS FOR 10 DAYS Active ASPIRIN LOW DOSE 81 MG tablet Active fluticasone propionate (FLONASE) 50 MCG/ACT nasal spray Active meloxicam (MOBIC) 15 MG tablet Active telmisartan (MICARDIS) 40 MG tablet Active meloxicam (MOBIC) 15 MG tabletIndications :Primary osteoarthritis of right knee Take 1 tablet by mouth once daily 90 tablet 2 Active venlafaxine XR 24hr (EFFEXOR XR) 75 MG capsule Active nystatin (NYSTOP) 224554 UNIT/GM powder Nystop 100,000 unit/gram topical powder Active Active Problems Problem Noted Date Diagnosed Date Primary osteoarthritis of right knee 05/27/2019 Amenorrhea 05/27/2019 Overview (05/27/2019): reassured menopausal with neg provera withdrawal 08/22 Anxiety 06/30/2018 Overview (05/27/2019): Stable on the Zoloft, would benefit from therapy. Consider also biofeedback. Referred to life skills. 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 Gender Identity Not on file Sexual Orientation Not on file Last Filed Vital Signs Vital Sign Reading Time Taken Comments Blood Pressure - - Pulse - - Temperature - - Respiratory Rate - - Oxygen Saturation - - Inhaled Oxygen Concentration - - Weight 117.9 kg (260 lb) 05/21/2020 1:39 PM CDT Height 167.6 cm (5' 6) 05/21/2020 1:39 PM CDT Body Mass Index 41.97 05/21/2020 1:39 PM CDT Plan of Treatment Health Maintenance Due Date Last Done Comments BONE DENSITY TESTING 1955 COLOGUARD (AGES 45-75) - COLON CA SCREENING 1953 COLON MONITORING 1953 COLONOSCOPY - COLON CA SCREENING 1953 CT COLONOGRAPHY - COLON CA SCREENING 1953 Colorectal Cancer Screening 1953 FIT - COLON CA SCREENING 1953 FLEX SIG - COLON CA SCREENING 1953 MAMMOGRAM 1953 MEDICARE AWV 12 MONTHS 1953 HEPATITIS C SCREENING 03/29/1971 DTAP/TDAP/TD VACCINES (1 - Tdap) 1972 PNEUMOCOCCAL VACCINE 50+ (1 of 1 - PCV) 2003 Respiratory Syncytial Virus (RSV) Vaccine Pt: or over 60 yrs (1 - Risk 50-74 years 1-dose series) 2003 ZOSTER VACCINE (1 of 2) 2003 SCREENING FOR DIABETES 05/26/2019 DEPRESSION SCREENING 08/17/2024 COVID-19 VACCINE ( - 2024- season) 2025 INFLUENZA VACCINE (#1) 2025 9, 06/09/2018, 05/13/2017, Additional history exists HEPATITIS B VACCINE Aged Out No longe r eligible based on patient's age to complete this topic HIB VACCINE Aged Out No longer eligi ble based on patient's age to complete this topic HPV VACCINE Aged Out No longer eligi ble based on patient's age to complete this topic MENINGOCOCCAL (Group B) VACCINE SHARED DECISION-MAKING Aged Out No longer eligible based on patient's age to complete this topic MENINGOCOCCAL GROUPS A/C/Y/W VACCINE Aged Out No longer eligible based on patient's age to complete this topic Insurance MEDICARE [employer] SELF PAY NO INSURANCE Member Subscriber Plan / Payer (Ef fective for All Dates) Name:Ar Krystin J Member ID:Not on file Relation to Subscriber:Not on file Name:ARKRYSTIN J Subscriber ID:Not on file (Home) Address: [address] [place], [place] [address] [address] Payer ID:Not on file Group ID:Not on file Type:Self Pay Address: [place], [place] Care Teams Dye Feeder Relationship Specialty [place] [address] [address] Orthopedic Surgery 05/26/19
--- OUTSIDE RECORDS SUMMARY | 2025-08-09 19:17 | XMS_ITS | Encounter Summary ---
Author Organization [facility] Address [facility] [place] [address] Care Team Providers Care Apparel Sales Leader Name Role Phone Edison Cantrell MD Unavailable Unavailable , Balta Cooper MD Primary Care Provider Unavailable Aric Corrales MD, Renea Primary Care Provider [phone] Encounter Details Date Type Department Care Team (Late st Contact Info) Description 02/12/2017 Abstract [facility] AT [address] [address] Grecia Adams MA Social History [...] PANEL Routine 12/30/2016 LIPID PANEL Routine 12/30/2016 HEMOGLOBIN GLYCOSYLATED A1C Routine 12/30/2016 documented in this encounter Results [...] on filedocumented in this encounter Care Teams Apparel Sales Leader Relationship Specialty Start Date End Date Balta Schmitz MD PCP - General 06/04/16 03/30/17 Renea Corbett MD [phone] (Work) PCP - General 03/31/17 Edison Cantrell MD [place] [employer] Supervisor CARDIOVASCULAR DISEASE 01/16/16 documented as of this encounter
--- OUTSIDE RECORDS SUMMARY | 2025-08-09 19:17 | XMS_ITS | Clinical Summary ---
Author Organization [facility] Address [address] [place] [address] Care Team Providers Care Pack Master Name Role Phone Edison Cantrell MD Unavailable Unavailable Aric Corrales MD, Renea Primary Care Provider [phone] Allergies Active Allergy Reactions Criticality Noted Date [...] Scan (General) 2018 COVID-19 Vaccine ( - 2024-2 6 season) 2025 Influenza Adult (#1) 2025 RSV Immunization or 60+ Years (1 - 1-dose 75+ series) 2028 Hepatitis A Vaccines Aged Out No long er eligible based on patient's age to complete this topic Meningococcal B Vaccine Aged Out No l onger eligible based on patient's age to complete this topic Meningococcal Vaccine Aged Out No saeid gerardo eligible based on patient's age to complete this topic RSV Immunizations Under 20 Months Aged Out No longer eligible based on patient's age to complete this topic Insurance [facility]/[employer] [address] [employer] Care Teams Pack Master Relationship Specialty Start Date End Date Renea Corbett MD [phone] (Work) PCP - General 03/31/17 Edison Cantrell MD [employer] Regroover CARDIOVASCULAR DISEASE 01/16/16
--- OUTSIDE RECORDS SUMMARY | 2025-08-09 19:17 | XMS_ITS | Clinical Summary ---
Author Organization [facility] Address [address] [place] [address] Care Team Providers Care Head Of Academic Technology Name Role Phone Nishi Odonnell MD Unavailable [phone] Tamie Brock MD Unavailable [phone] Sergio Titus MD Unavailable [phone] Selam Mayen MD Unavailable [phone] Clotilde Stout MD Unavailable [phone] Sergio Titus MD Primary Care Provider [phone] Allergies Active Allergy Reactions Criticality Noted Date [...] by mouth daily 90 tablet 2 5 Active cycloSPORINE (Restasis) 0.05 % ophthalmic emulsion Administer 1 drop into both eyes every 12 (twelve) hours 0.4 mL 2 5 Active venlafaxine XR (EFFEXOR-XR) 75 mg 24 hr capsuleIndicat ions:Hypertens ion, essential Take 1 tablet daily 90 capsule 5 Active simvastatin (Zocor) 40 mg tabletIndicati ons:Lipid disorder Take 1 tablet (40 mg total) by mouth nightly 90 tablet 5 026 Active telmisartan (MICARDIS) 40 mg tabletIndicati ons:Hypertensi on, essential Take 1 tablet (40 mg total) by mouth daily 90 tablet 5 026 Active meloxicam (MOBIC) 15 mg tabletIndicati ons:Osteoarthr itis Take 1 tablet (15 mg total) by mouth daily Take 1 daily with food 30 tablet 5 026 Active fluticasone propionate (FLONASE) 50 mcg/actuation nasal sprayIndicatio ns:Other acute sinusitis, recurrence not specified,Recu rrent sinus infections Administer 2 sprays into each nostril daily 16 g 1 5 026 Active fluticasone propionate (FLONASE) 50 mcg/actuation nasal sprayIndicatio ns:Other acute sinusitis, recurrence not specified,Recu rrent sinus infections Administer 2 sprays into each nostril daily 16 g 1 5 025 Discontin ued(Reord er) meloxicam (MOBIC) 15 mg tabletIndicati ons:Osteoarthr itis Take 1 tablet (15 mg total) by mouth daily Take 1 daily with food 30 tablet 5 025 Discontin ued(Reord er) Active Problems Problem Noted Date Diagnosed Date Cellulitis of lip 06/12/2022 Screening for malignant neoplasm of colon 2021 Overview (12/20/2021): Added automatically from request for surgery [id number] Morbid (severe) obesity due to excess calories [...] Encounters Date Type Department Care Team Description 07/27/[address] [phone] Sergio Titus MD med rf SIGIFREDO (Flonase/) 07/10/[address] [phone] Sergio Titus MD med rf SIGIFREDO (Meloxicam ) 05/18/[address] [phone] Sergio Titus MD med rf SIGIFREDO (Venlafaxine/) from Last 3 Months Immunizations Immunization Administration [...] on file 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 Gender Identity Not on file Sexual Orientation [...] Discontinued 05/07/2017 Medical Devices Implanted Type Area Geospatial Information Scientist Device Identifier Shelf Expiration Date Model / Serial / Lot Bard Peripheral Vascular Ultraclip Bard 17ga 10cm 2 Trigger Permanent Ultrasound [id number] - [id number] Implanted:Qty: 1 on 09/28/2023 at [facility] Right: Breast Bard Peripheral Vascular [id number] / / Bard Peripheral Vascular Ultraclip Bard 17ga 10cm 2 Trigger Permanent Ultrasound [id number] - [id number] Implanted:Qty: 1 on 09/28/2023 at [facility] Right: Breast Bard Peripheral Vascular [id number] / / Procedures Procedure Name Priority Date/Time Associated Diagnosis Comments EGFR Routine 01/26/2025 3:51 PM CDT Hypertension associated with diabetes (HCC) HEMOGLOBIN A1C Routine 01/26/2025 3:51 PM CDT Hypertension associated with diabetes (HCC) LIPID PANEL Routine 01/26/2025 3:51 PM CDT Lipid disorder SCREENING MAMMOGRAM BILATERAL W DARRELL Schedule Routine, Read Routine (OP Routine) 09/01/2024 1:54 PM PARKING TECHNICIAN Screening mammogram, encounter for DEXA AXIAL SKELETON BONE DENSITY 1 OR MORE SITES Schedule Routine, Read Routine (OP Routine) 01/15/2023 1:44 PM CDT Post-menopausal osteoporosis COLONOSCOPY REPORT 05/07/2017 from Last 3 Months or Most Recently Relevant to Health Maintenance Results * eGFR (01/26/2025 3:51 PM CDT) eGFR [...] of Race in Diagnosing Kidney Disease, JASN 202). The CKD-EPI equation should not be used for patients with unstable renal function and has not been validated in children and those over 70. Current interpretive data was last reviewed 2021. Blood 01/26/2025 3:51 PM CDT 01/26/2025 5:50 PM CDT Sergio Titus MD LAB BLOOD ORDERABLES Final R esult Performing Organization Address [facility] Co de Phone Number [facility] [employer] [place] [address] * (ABNORMAL) Hemoglobin A1c (01/26/2025 3:51 PM CDT) Hgb A1C 6.5(H) 4.0 - 5.6 % Estimated Average Glucose 140 mg/dL [facility] Comment: The ADA recommends reporting an estimated [...] MD LAB BLOOD ORDERABLES Final R esult Performing Organization Address [facility] Co de Phone Number [facility] [place] [place] [address] * (ABNORMAL) Lipid panel (01/26/2025 3:51 PM [...] revised on 2018. Triglycerides 215(H) <=149 mg/dL [facility] Comment: Interpretive Data Ages < or = [...] revised on 2018. HDL 56 >=40 mg/dL [facility] Comment: Interpretive Data Ages < or = [...] 2018. LDL, calculated 91 <=129 mg/dL [facility] Comment: Interpretive Data Ages < or = 19 years Acceptable: <110 mg/dL Borderline high: 110-129 mg/dL High: >or= 130 mg/dL Ages > or = 20 years Optimal: <100 mg/dL Near optimal: 100-129 mg/dL Borderline high: 130-159 mg/dL High: >160 mg/dL Calculated using the Wei LDL-C estimating equation. This equation was implemented on 2024. Prior to this date LDL-C was estimated using the Friedewald equation. Literature References: 1. Expert Panel on Integrated Guidelines for Cardiovascular Health and Risk Reduction in Children and Adolescents. Pediatrics 2011;128:S213 2. NCEP Expert Panel. Circulation 2004;110:227 3. Eriberto Malone et al. JOLIE Cardiol. 2019December 15;5(5):540-548. doi: 10.1001/jamacardio.2020.0013 Current Interpretive Data was last revised on 2024. Non-HDL Cholesterol 127 mg/dL [facility] Comment: Interpretive Data Ages < or = [...] last revised on 2018. Chol/HDL ratio 3 [facility] Blood 01/26/2025 3:51 PM CDT 01/26/2025 5:43 PM CDT Sergio Titus MD LAB BLOOD ORDERABLES Final R esult [facility] [place] [address] * Screening Mammogram Bilateral W Darrell (09/01/2024 1:54 PM PARKING TECHNICIAN) Anatomical Region Laterality Modality Breast Bilateral Mammography Narrative 09/02/2024 3:14 PM PARKING TECHNICIAN Mammogram Technique: Bilateral Digital Breast Tomosynthesis, Bilateral C-view 2D Screening mammogram. Views obtained: bilateral craniocaudal and bilateral mediolateral oblique. Computer Aided Detection was performed. Mammogram Findings: The present examination has been compared to prior imaging studies performed at [facility] on 09/17/2023, and at [facility] on 01/31/2022 and 08/20/2023. The breasts [...] compared to prior imaging studies performed at [facility] on 09/17/2023, and at [facility] on 01/31/2022 and 08/20/2023. The breasts [...] The patient's weight was therefore adjusted to: Vjlosd=861 kg. This 10-year fracture risk estimate was [...] The patient's weight was therefore adjusted to: Zgaqso=322 kg. This 10-year fracture risk estimate was [...] Recently Relevant to Health Maintenance Insurance MEDICARE [facility] Address: [facility] [address] [place] [address] [employer] [facility] H[facility]/PPO Address: [address] [address] [place] [address] MEDICARE [facility] MEDICARE [facility] HMO/PPO Address: [address] [address] [place] [address] [facility] MEDICARE [facility] Address: [address] [address] [place] [address] [facility] H[facility]/PPO Address: [address] [address] [place] [address] [facility] [place] [address] Care Teams Head Of Academic Technology Relationship Specialty Start Date End Date Sergio Titus MD [address] [place] [address] [address] [place] [address] PCP - General Cardiovascular Disease 11/03/22 Nishi Odonnell MD Radiation Oncologist Radiation Oncology 08/24/18 Tamie Brock MD [address] [facility] [phone] [place] [address] Consulting Physician Gynecologic Oncology 12/20/21 Sergio Titus MD [address] [place], [place] [address]OPAL SHEIKH [address] [place] [address] Consulting Physician Cardiovascular Disease 10/16/22 Selam Mayen MD [address] [place] [address] [place] [address] Referring Physician Family Medicine 10/16/22 Clotilde Stout MD [address] [place] [address] Referring Physician Obstetrics and Gynecology 10/16/22
[2025-08-09 19:28] LABS: Hematocrit 40.8 % (37.0-47.0); Hemoglobin 13.7 g/dL (12.0-15.0); Immature Granulocyte Percent A 0.5 % (0-0.5); Lymphocytes Absolute Auto 1.50 K/mm3 (0.9-3.2); Mean Corpuscular HGB Conc 33.6 g/dl (32-36); Mean Corpuscular Hemoglobin 30.2 pg (26-34); Mean Corpuscular Volume 89.9 fl (80-100); Nucleated Red Blood Cells Absolute Auto 0.000 K/mm3 (0.0-0.012); Nucleated Red Blood Cells Perc 0.0 % (0.0-0.2); Platelet Count Result 195 k/mm3 (150-375); Red Blood Count 4.54 M/mm3 (4.2-5.4); White Blood Count 12.1 K/mm3 (4.5-10.0)
[2025-08-09 19:36] LABS: Influenza A QL RT-PCR Negative (Negative); Influenza B QL RT-PCR Negative (Negative); RSV RNA, RT-PCR Negative (Negative); SARS-CoV-2 RNA PCR Negative (Negative)
[2025-08-09 19:38] LABS: Alanine Aminotransferase 26 U/L (6-35); Albumin Level 4.0 g/dL (3.5-5.1); Alkaline Phosphatase 87 U/L (38-126); Anion Gap 10 mmol/L (4-12); Aspartate Amino Transferase 25 U/L (14-36); Bilirubin,Total 0.7 mg/dL (0.2-1.3); Blood Urea Nitrogen 14 mg/dL (7-17); Calcium 8.9 mg/dL (8.4-10.2); Carbon Dioxide 24 mmol/L (22-30); Chloride 103 mmol/L (98-107); Estimated CRCL calculation 74 ml/min; Estimated Glomerular Filt Rate > 60; Glucose 134 mg/dL (65-110); Potassium 3.7 mmol/L (3.4-5.0); Sodium 137 mmol/L (137-145); Total Protein 7.5 g/dL (6.3-8.2)
[2025-08-09 19:58] LABS: Strep Group A RT-PCR NOT DETECTED (Negative)
--- NOTE | 2025-08-09 20:40 | PC.NURSE ---
pt oxygen saturation 93-94% RA, denies dizziness, denies lightheadedness. Pt tolerated well.
[2025-08-09] MEDS: BENZONATATE 100 MG CAPSULE 200 MG PO (21:01)
[2025-08-09 21:02] VITALS: TEMP 37.4
[2025-08-09 21:07] VITALS: BP 139/73; PULSE 83; RESP 18; TEMP 37.4; O2SAT 95
== END 2025-08-09 21:11 | disposition home or self-care (01) ==
PROVIDERS: Physician Assistant; Emergency Provider Emergency Medicine
DX: J20.8 Acute bronchitis due to other specified organisms (principal); E66.01 Morbid (severe) obesity due to excess calories; Z68.41 Body mass index [BMI] 40.0-44.9, adult; Z20.822 Contact with and (suspected) exposure to COVID-19
CPT/HCPCS: 36415; 71046; 80053; 83605; 85025; 87637; 87651; 99283; A9270; J7512